=== PATIENT | female | born 1990 | race Caucasian/White ===

== ENCOUNTER 2018-01-30 09:55 | Emergency (ER) | payer OTHER ==
[2018-01-30 13:05] LABS: Absolute Lymphocytes (CBC) 2.2 K/uL (0.7-4.9); Absolute Monocytes 0.6 K/uL (0.1-1.3); Absolute Neutrophil 3.6 K/uL (1.8-8.0); Basophils % 0.4 % (0-1.3); Eosinophils % 0.6 % (0-4.4); Hematocrit 41.6 % (36.0-45.0); Lymphocytes % 33.6 % (15.3-44.8); MCH 31.7 pg (27.0-35.0); MCV 93.3 fL (80-100); MPV 8.3 fL (7.6-11.3); RBC Red Blood Cell Count 4.46 M/uL (3.86-4.86)
[2018-01-30 13:50] LABS: Bicarbonate 27 mEq/L (21-31); Glucose Level 89 mg/dL (65-120); Potassium 3.8 mEq/L (3.6-5.0); Sodium Level 139 mEq/L (135-145)
[2018-01-30 13:51] LABS: BUN Blood Urea Nitrogen 11 mg/dL (6-20)
[2018-01-30 13:56] LABS: HCG, Quantitative < 5.0 mIU/mL (<5)
--- NOTE | 2018-01-30 14:15 | RAD REPORT ---
EXAM DESCRIPTION: US - Transvaginal Study Probe - 01/30/2018 2:01 pm CLINICAL HISTORY: Pelvic pain. COMPARISON: 07/02/2012 FINDINGS: The uterus is normal in size, shape and echotexture. The uterus measures 8.2 x 6.5 x 5.6 c m. The endometrial stripe measures 10 mm, normal. Both ovaries are normal in size, shape and echotexture. The right ovary measures 3.6 x 2.9 x 2.3 cm. The left ovary measures 4.0 x 2.5 x 1.9 cm. No ovarian or parovarian lesions. No adnexal masses. Normal Doppler blood flow was demonstrated to both ovaries. IMPRESSION: Unremarkable study.
[2018-01-30 14:25] LABS: Urine Blood NEGATIVE (NEG); Urine Glucose NEGATIVE (NEG); Urine Protein NEGATIVE (NEG); Urine pH 5.5 (5.0-7.0)
--- NOTE | 2018-01-30 14:32 | ER ---
Nurse's Notes [facility] Name: Josee Anthony Age: 27 yrs Sex: Female : 1990 Arrival Date: 01/30/2018 Time: 10:01 Bed 5 Private MD: None, None Diagnosis: Abdominal and pelvic pain;Low back pain Presentation: 01/30 10:26 Presenting complaint: Patient states: Low back pain that radiates to left abdomen, aj started 12 days ago. Reports discomfort when urinating. Transition of care: patient was not received from another setting of care. Onset of symptoms was January 18, 2018. Initial Sepsis Screen: Does the patient meet any 2 criteria? No. Patient's initial sepsis screen is negative. Does the patient have a suspected source of infection? No. Patient's initial sepsis screen is negative. Care prior to arrival: None. 10:26 Method Of Arrival: Ambulatory aj 10:26 Acuity: ROBERT 3 aj Triage Assessment: 10:28 General: Appears in no apparent distress. comfortable, Behavior is calm, cooperative, aj appropriate for age. Pain: Complains of pain in left low back, posterior aspect of left lateral abdomen, anterior aspect of left lateral abdomen, left upper quadrant and left lower quadrant Pain currently is 5 out of 10 on a pain scale. Neuro: Level of Consciousness is awake, alert, obeys commands, Oriented to person, place, time, situation. Respiratory: Airway is patent Respiratory effort is even, unlabored. : Reports burning with urination. Derm: Skin is intact, is healthy with good turgor, Skin is pink, warm \T\ dry. normal. Musculoskeletal: Circulation, motion, and sensation intact. 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 - Social history:: Smoking status: Patient uses tobacco products, denies chronic smoking, but will smoke occasionally. Screenin:26 Abuse screen: Denies threats or abuse. Nutritional screening: No deficits noted. tw2 Tuberculosis screening: No symptoms or risk factors identified. Fall Risk None identified. Assessment: 12:24 General: Appears in no apparent distress. slender, well groomed, Behavior is calm, tw2 cooperative, appropriate for age. Pain: Complains of pain in abdomen and back. Neuro: Level of Consciousness is awake, alert, obeys commands, Oriented to person, place, time, situation. Cardiovascular: Denies chest pain, shortness of breath, Heart tones S1 S2 Capillary refill < 3 seconds Patient's skin is warm and dry. Respiratory: Airway is patent Respiratory effort is even, unlabored, Respiratory pattern is regular, symmetrical, Breath sounds are clear bilaterally. GI: Abdomen is flat, Bowel sounds present X 4 quads. Reports lower abdominal pain, upper abdominal pain, Patient currently denies bloating, nausea, vomiting. : No signs and/or symptoms were reported regarding the genitourinary system. EENT: No signs and/or symptoms were reported regarding the EENT system. Derm: No signs and/or symptoms reported regarding the dermatologic system. Skin is intact, is healthy with good turgor, Skin temperature is warm. Musculoskeletal: Range of motion: intact in all extremities. 13:30 Reassessment: Patient appears in no apparent distress at this time. No changes from tw2 previously documented assessment. Patient and/or family updated on plan of care and expected duration. Pain level reassessed. Patient is alert, oriented x 3, equal unlabored respirations, skin warm/dry/pink. 14:52 Reassessment: Patient appears in no apparent distress at this time. No changes from tw2 previously documented assessment. Patient and/or family updated on plan of care and expected duration. Pain level reassessed. Patient is alert, oriented x 3, equal unlabored respirations, skin warm/dry/pink. Vital Signs: 10:28 BP 116 / 84; Pulse 88; Resp 17; Temp 98.6; Pulse Ox 100% on R/A; Weight 52.16 kg; aj Height 5 ft. 1 in. (154.94 cm); Pain 5/10; 12:27 BP 119 / 71; Pulse 78; Resp 18; Pulse Ox 100% on R/A; Pain 4/10; tw2 13:40 BP 127 / 74; Pulse 84; Resp 17; Pulse Ox 99% on R/A; tw2 14:51 BP 113 / 78; Pulse 90; Resp 17; Pulse Ox 96% on R/A; tw2 15:34 BP 113 / 70; Pulse 82; Resp 17; Pulse Ox 100% on R/A; tw2 10:28 Body Mass Index 21.73 (52.16 kg, 154.94 cm) aj ED Course: 10:01 Patient arrived in ED. mr 10:01 None, None is Private Physician. mr 10:27 Triage completed. aj 10:28 Arm band placed on left wrist. Patient placed in waiting room, Patient notified of wait aj time. 12:18 Naveen Fuentes PA is PHCP. cp 12:18 Naveen Lam MD is Attending Physician. cp 12:20 Violet Carr, CAMILA is Primary Nurse. tw2 12:26 Bed in low position. Call light in reach. Pulse ox on. NIBP on. tw2 13:00 Inserted saline lock: 20 gauge in left antecubital area, using aseptic technique. tw2 ,using aseptic technique. per Elizabeth Liu Blood collected. 13:39 Assist provider with pelvic exam: Set up pelvic tray. Performed by Naveen DALE tw2 Specimens sent to lab. Patient tolerated well. 13:44 Patient taken to ultrasound. hr 14:01 US Transvaginal Study (Probe) In Process Unspecified. EDMS 15:07 Awaitin minutes ABX observation prior to discharge. tw2 15:38 IV discontinued, intact, bleeding controlled, No redness/swelling at site. Pressure tw2 dressing applied. Administered Medications: 15:04 Drug: Rocephin (cefTRIAXone) 250 mg Route: IM; Site: right gluteus; tw2 15:33 Follow up: Response: No adverse reaction tw2 15:06 Drug: Zithromax 1 grams Route: PO; tw2 15:33 Follow up: Response: No adverse reaction tw2 Outcome: 14:31 Discharge ordered by . cp 15:38 Discharged to home ambulatory. tw2 15:38 Condition: stable 15:38 Discharge instructions given to patient, Instructed on discharge instructions, follow up and referral plans. medication usage, Demonstrated understanding of instructions, follow-up care, medications, Prescriptions given X 2. 15:39 Patient left the ED. tw2 Signatures: Dispatcher [employer] EDMS Janice Randolph RN RN aj Rivera, Maria Franck Vidaley hr Naveen Fuentes PA PA cp Wise, Tara, RN RN tw2 Corrections: (The following items were deleted from the chart) 13:39 12:26 No provider procedures requiring assistance completed. tw2 tw2
--- NOTE | 2018-01-30 14:33 | EDPHYS ---
Physician Documentation [facility] Name: Josee Anthony Age: 27 yrs Sex: Female : 1990 Arrival Date: 01/30/2018 Time: 10:01 Bed 5 Private MD: None, None ED Physician Naveen Lam HPI: 01/30 12:25 This 27 yrs old Female presents to ER via Ambulatory with complaints of Back cp Pain, Abdominal Pain. 12:25 The patient presents with abdominal pain in the lower abdomen. cp 12:25 Onset: The symptoms/episode began/occurred 2 week(s) ago. The symptoms radiate to low cp back area. Associated signs and symptoms: Pertinent positives: dysuria, vaginal discharge, pelvic pain, Pertinent negatives: nausea and vomiting, anorexia, blood in stools, constipation, diarrhea, fever. 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 - Social history:: Smoking status: Patient uses tobacco products, denies chronic smoking, but will smoke occasionally. ROS: 12:30 Constitutional: Negative for body aches, chills, fever, poor PO intake. cp 12:30 Eyes: Negative for injury, pain, redness, and discharge. cp 12:30 ENT: Negative for drainage from ear(s), ear pain, sore throat, difficulty swallowing, difficulty handling secretions. 12:30 Cardiovascular: Negative for chest pain, palpitations. 12:30 Respiratory: Negative for cough, shortness of breath, wheezing. 12:30 Abdomen/GI: Positive for abdominal pain, of the right lower quadrant and left lower quadrant, Negative for nausea, vomiting, and diarrhea, constipation, anorexia. 12:30 Back: Positive for radiated pain, of the low back area. 12:30 : Positive for pelvic pain, vaginal discharge, Negative for urinary symptoms, vaginal bleeding. 12:30 Skin: Negative for cellulitis, rash. 12:30 Neuro: Negative for dizziness, headache, weakness. 12:30 All other systems are negative. Exam: 12:37 Constitutional: The patient appears in no acute distress, alert, awake, comfortable, cp non-toxic, well developed, well nourished. 12:37 Head/Face: Normocephalic, atraumatic. cp 12:37 Eyes: Periorbital structures: appear normal, Conjunctiva: normal, no exudate, no injection, Sclera: no appreciated abnormality, Lids and lashes: appear normal, bilaterally. 12:37 ENT: External ear(s): are unremarkable, Nose: is normal, Mouth: Lips: moist, Oral mucosa: pink and intact, moist, Posterior pharynx: is normal, airway is patent, no erythema, no exudate. 12:37 Neck: ROM/movement: is normal, is supple, without pain, no range of motions limitations, no meningismus, no nuchal rigidity. 12:37 Chest/axilla: Inspection: normal, Palpation: is normal, no crepitus, no tenderness. 12:37 Cardiovascular: Rate: normal, Rhythm: regular. 12:37 Respiratory: the patient does not display signs of respiratory distress, Respirations: normal, no use of accessory muscles, no retractions, no splinting, no tachypnea, labored breathing, is not present, Breath sounds: are clear throughout, no decreased breath sounds, no stridor, no wheezing. 12:37 Abdomen/GI: Inspection: abdomen appears normal, Bowel sounds: active, all quadrants, Palpation: soft, in all quadrants, mild abdominal tenderness, in the right lower quadrant and left lower quadrant, rebound tenderness, is not appreciated, voluntary guarding, is not appreciated, involuntary guarding, is not appreciated. 12:37 Back: pain, that is mild, of the low back area, CVA tenderness, is absent. 12:37 Skin: cellulitis, is not appreciated, no rash present. Vital Signs: 10:28 BP 116 / 84; Pulse 88; Resp 17; Temp 98.6; Pulse Ox 100% on R/A; Weight 52.16 kg; aj Height 5 ft. 1 in. (154.94 cm); Pain 5/10; 12:27 BP 119 / 71; Pulse 78; Resp 18; Pulse Ox 100% on R/A; Pain 4/10; tw2 13:40 BP 127 / 74; Pulse 84; Resp 17; Pulse Ox 99% on R/A; tw2 14:51 BP 113 / 78; Pulse 90; Resp 17; Pulse Ox 96% on R/A; tw2 15:34 BP 113 / 70; Pulse 82; Resp 17; Pulse Ox 100% on R/A; tw2 10:28 Body Mass Index 21.73 (52.16 kg, 154.94 cm) aj MDM: 12:18 Patient medically screened. cp 13:00 Differential diagnosis: Ectopic , Endometriosis, gastritis, Ovarian Torsion, cp Pelvic Inflammatory Disease, Ureterolithiasis, urinary tract infection. 14:29 Data reviewed: vital signs, nurses notes, lab test result(s), radiologic studies, cp ultrasound, and as a result, I will discharge patient. 14:35 Counseling: I had a detailed discussion with the patient and/or guardian regarding: the cp historical points, exam findings, and any diagnostic results supporting the discharge/admit diagnosis, lab results, radiology results, the need for outpatient follow up, an OB/Gyne specialist, to return to the emergency department if symptoms worsen or persist or if there are any questions or concerns that arise at home. Response to treatment: the patient's symptoms have markedly improved after treatment, and as a result, I will discharge patient. 01/30 12:21 Order name: Urine Dipstick--Ancillary (enter results); Complete Time: 14:26 mw2 01/30 14:26 Interpretation: Normal except: UESTR TRACE. 01/30 12:21 Order name: Urine --Ancillary (enter results); Complete Time: 14:26 2 01/30 12:31 Order name: Quantitative Hcg; Complete Time: 14:26 01/30 12:31 Order name: Basic Metabolic Panel; Complete Time: 14:26 01/30 12:31 Order name: CBC with Diff; Complete Time: 13:40 01/30 12:31 Order name: GC (GONORR/CHLAMYDIA) Probe 01/30 12:31 Order name: IV Saline Lock; Complete Time: 12:57 01/30 12:31 Order name: Labs collected and sent; Complete Time: 12:57 01/30 12:31 Order name: NPO; Complete Time: 12:34 01/30 12:31 Order name: Pelvic Exam Setup; Complete Time: 12:36 01/30 12:31 Order name: Wet Prep; Complete Time: 14:26 01/30 13:40 Order name: US Transvaginal Study (Probe); Complete Time: 14:26 cp Administered Medications: 15:04 Drug: Rocephin (cefTRIAXone) 250 mg Route: IM; Site: right gluteus; tw2 15:33 Follow up: Response: No adverse reaction tw2 15:06 Drug: Zithromax 1 grams Route: PO; tw2 15:33 Follow up: Response: No adverse reaction tw2 Disposition: 19:11 Co-signature as Attending Physician, Naveen Lam MD I agree with the assessment and [facility] plan of care. Disposition: 01/30/18 14:31 Discharged to Home. Impression: Abdominal and pelvic pain, Low back pain. - Condition is Stable. - Discharge Instructions: Back Pain, Adult, Pelvic Pain, Female, Abdominal Pain, Women, Back Exercises, [id number]. - Prescriptions for Ibuprofen 800 mg Oral Tablet - take 1 tablet by ORAL route every 8 hours As needed take with food; 30 tablet. Doxycycline Hyclate 100 mg Oral Tablet - take 1 tablet by ORAL route every 12 hours; 20 tablet. - Medication Reconciliation Form, Thank You Letter, Antibiotic Education, Prescription Opioid Use, Work release form form. - Follow up: Private Physician; When: primary FINGERNAIL FORMER; Reason: Recheck today's complaints, 1 week. - Problem is new. - Symptoms are unchanged. Signatures: Dispatcher [employer] Janice Lema, RN Naveen Florian MD MD cha Page, Corey, PA PA cp Wise, Tara RN RN tw2
[2018-01-30] MEDS ORDERED: AZITHROMYCIN 250 MG TAB ONE (14:56)
[2018-01-30] MEDS ORDERED: CEFTRIAXONE 250 MG/VIAL ONE (14:57)
[2018-01-30 15:45] VITALS: TEMP 98.6
[2018-01-30 15:50] VITALS: BP 113/70; O2SAT 100
[2018-02-01 23:46] LABS: C.trachomatis RNA,TMA Not Detected (Not Detected)
== END 2018-01-30 15:39 | disposition home or self-care (01) ==
LOC: ER 09:55
DX: R10.2 Pelvic and perineal pain (principal); Z72.0 Tobacco use
CPT/HCPCS: 36415; 76830; 80048; 81003; 81025; 84702; 85025; 87210; 87490; 87590; 96372; 99285; J0696

== ENCOUNTER 2019-04-17 10:51 | Emergency (ER) | payer OTHER ==
--- OUTSIDE RECORDS SUMMARY | 2019-04-17 10:54 | XMS REPORT | Encounter Summary ---
:1990 Author Reason for Visit Problem Visit Instructions 1. Depressive disorder citalopram 10 mg tablet Discussion Note At least 15 min. of face to face time with the patient, >50% spent on counseling. Patient educational handouts: No information available. Plan of Care Reminders Provider Appointments Consult Erickson Whitman, 12/02/2018 10:45AM Follow up Erickson Whitman, 12/11/2018 9:45AM Lab None recorded. Referral None recorded. Procedures None recorded. Surgeries None recorded. Imaging None recorded. Medications Name Start Date citalopram 10 mg tablet Take 1 tablet every day by oral route. Medications Administered None recorded. Vitals Height Weight BMI Blood Pressure 5 ft 2 in 118 lbs 21.6 kg/m2 118/74 mm[Hg] Lab Results None recorded. Allergies Code Code System Name Reaction Severity Status Onset NKDA Problems Name Status Onset Date Source Dysmenorrhea Active 12/06/2017 Menorrhagia Active 12/06/2017 Sterilization Requested Active 12/06/2017 Procedures Date Name Performed by 11/27/2013 Caesarean Section Information not available 04/11/2009 Caesarean Section Information not available 01/30/2008 Caesarean Section Information not available Vaccine List None recorded. Social History Smoking Status Never Smoker Past Encounters 11/27/2018 Depressive Disorder Erickson Whitman MD: [address], [address], [place] [address], Ph. [phone] History of Present Illness Note: Problem visit. Complains of severe depression, including feelings of hurting self and others. She had an early termination 03/2017 and was late for menses this month (November), had positive test, then started having heavy bleeding a few days ago. She went to an ER in [place] last night for her mood symptoms. She was not prescribed medication and was told to f/u here. 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 Reported By: Patient Constitutional: Constitutional: no fever, no significant weight gain, no significant weight loss, fatigue Skin: Skin: no abnormal moles, no rashes Eyes: Eyes: no irritation, no vision changes ENMT: ENMT: no hearing loss, no ear pain, no nose/sinus problems, no sore throat, no snoring, no dry mouth, no mouth ulcers Respiratory: Respiratory: no dyspnea / shortness of breath, no cough, no sputum production, no hemoptysis, no wheezing Cardiovascular: Cardiovascular: no chest pain, no palpitations, no orthopnea Gastrointestinal: Gastrointestinal: no heartburn, no dysphagia, no nausea, no vomiting, no abdominal pain, no bowel movement changes, no diarrhea, no constipation, no rectal bleeding Genitourinary: Genitourinary: no hematuria, no abnormal bleeding, no flank pain, no trouble urinating, no incontinence, no rash, no lesion, no discharge, no vaginal odor, no vaginal itching Endocrine: Menstrual: no menstrual problems, depressed mood. Menopausal: no menopausal symptoms. Sexual: no sexual problems Musculoskeletal: Musculoskeletal: no muscle aches, no muscle weakness, no arthralgias/joint pain, no back pain Neurological: Neurologic: no headaches, no dizziness, no LOC, no weakness, no numbness, no seizures Psychological: Psych: no alcoholism, no sleep disturbances, depression Physical Exam Notes: Mental status Exam:<div>Appearance appropriate, good hygiene.</div><div >Calm attitude.</div><div>Normal behavior w/out psychomotor changes.</div><div>Speech normal.</div><div>Affect/mood mildly depression, occ. tearful.</div><div>Thought processes normal, logical.</div><div>Suicidal/homicidal ideation passively present.</div><div> No hallucinations.</div><div>Oriented to time, place, person.</div><div>Good insight and judgement.</div>
--- OUTSIDE RECORDS SUMMARY | 2019-04-17 10:54 | XMS REPORT | Encounter Summary ---
:1990 Author Reason for Visit consult Instructions 1. Depressive disorder 2. Sterilization requested 3. Unprotected sexual intercourse urinalysis, dipstick test, urine beta-HCG, quantitative, serum or plasma Discussion Note Risks, benefits, and alternatives of laparoscopic bilateral tubal ligation discussed. Permanent nature of procedure, risk of future regret, and possible failure rate of 0.5-1 % reviewed. Written info given. Consent signed today. Plan BTL in one month. At least 15 min. of face to face time with the patient, >50% spent on counseling. Patient educational handouts: No information available. Plan of Care Reminders Provider Appointments None recorded. Lab Urinalysis, In-House Results Dipstick 03/10/2019 In-House Results Test, Urine 03/10/2019 beta-HCG, [place] Quantitative, Serum or 03/10/2019 [facility] (Lab) Referral None recorded. Procedures None recorded. Surgeries None recorded. Imaging None recorded. Medications Name Start Date citalopram 10 mg tablet Take 1 tablet every day by oral route. citalopram 20 mg tablet Take 1 tablet every day by oral route. Medications Administered None recorded. Vitals Height Weight BMI Blood Pressure 5 ft 2 in 120.8 lbs 22.1 kg/m2 116/82 mm[Hg] Lab Results Date Name Specimen Result Interpretation Description Value Range Status Address 03/10/2019 beta-HCG, Normal HCG 0.1 0-5 Final [place] Quantitative, Quantitative mIU/mL mIU/mL [facility] Serum or [facility] (Lab): [address] [facility] 03/10/2019 Urine negative In-House Test, Urine clean Test Results: catch For Internal Use Only 03/10/2019 Urinalysis, Urine Leukocytes Trace In-House Dipstick clean Results: catch For Internal Use Only Urine Nitrite negative In-House clean Results: catch For Internal Use Only Urine Urobilinogen .2 In-House clean Results: catch For Internal Use Only Urine Protein Negative In-House clean Results: catch For Internal Use Only Urine Ph 6.5 In-House clean Results: catch For Internal Use Only Urine Blood Negative In-House clean Results: catch For Internal Use Only Urine Specific 1.030 In-House clean [place] Results: catch For Internal Use Only Urine Ketone Negative In-House clean Results: catch For Internal Use Only Urine Bilirubin Negative In-House clean Results: catch For Internal Use Only Urine Glucose Negative In-House clean Results: catch For Internal Use Only Urine Appearance Clear In-House clean Results: catch For Internal Use Only Urine Color Yellow In-House clean Results: catch For Internal Use Only Allergies Code Code System Name Reaction Severity Status Onset NKDA Problems Name Status Onset Date Source Dysmenorrhea Active 12/06/2017 Menorrhagia Active 12/06/2017 Sterilization Requested Active 12/06/2017 Depressive Disorder Active 12/15/2018 Procedures Date Name Performed by 11/27/2013 Caesarean Section Information not available 04/11/2009 Caesarean Section Information not available 01/30/2008 Caesarean Section Information not available Vaccine List None recorded. Social History Smoking Status Never Smoker Past Encounters 03/10/2019 Depressive Disorder; Sterilization Requested; Unprotected Sexual [place] Erickson Whitman MD: [address] [place] [address], [address], [place] [address], Ph. [phone] History of Present Illness Note: Follow up visit. Started citalopram 20 mg three months ago for depression. She reports good relief of symptoms. She wishes to proceed with permanent sterilization. She states that she had unprotected intercourse on two occasions shortly after her LMP and is concerned about being . 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 Behavior and speech normal.</div><div>Affect and mood are normal.</div><div>Thought processes logical and organized. No suicidal thoughts.</div><div>No hallucinations. </div><div>Insight and judgement good.</div>
--- OUTSIDE RECORDS SUMMARY | 2019-04-17 10:54 | XMS REPORT | Encounter Summary ---
:1990 Author Reason for Visit Problem Visit Instructions 1. Depressive disorder citalopram 10 mg tablet Discussion Note At least 25 min. of face to face time with the patient, >50% spent on counseling. Patient educational handouts: No information available. Plan of Care Reminders Provider Appointments Follow up 12/11/2018 Erickson Whitman, 9:45AM Lab None recorded. Referral None recorded. [...] 11/27/2018 Depressive Disorder Erickson Whitman MD: [address] [facility], [address], [place] [address], Ph. [phone] History of Present Illness Note: Problem visit. Complains of severe depression, including feelings of hurting self and others. She had an early termination 03/2017 and was late for menses this month (November), had positive test, then started having heavy bleeding a few days ago. She went to an ER in [place] last night for her mood symptoms. She was not prescribed medication and was told to f/u here. 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
--- OUTSIDE RECORDS SUMMARY | 2019-04-17 10:55 | XMS REPORT | Encounter Summary ---
:1990 Author Reason for Visit Pre- OP Instructions 1. Pre-surgery evaluation test, urine urinalysis, dipstick Tylenol-Codeine #3 300 mg-30 mg tablet ibuprofen 800 mg tablet Valium 10 mg tablet 2. Sterilization requested Discussion Note Risks, benefits, and alternatives of laparoscopic bilateral tubal ligation discussed. Permanent nature of procedure, risk of future regret, and possible failure rate of 0.5-1 % reviewed. Written info given. Procedure scheduled for 04/15/19. Patient educational handouts: No information available. Plan of Care Reminders Provider Appointments Surgery Erickson Whitman, 04/15/2019 9:30AM Post Op Visit Erickson Whitman, 04/27/2019 10:00AM Lab In-House Results Test, Urine 04/13/2019 Urinalysis, In-House Results Dipstick 04/13/2019 Referral None recorded. Procedures None recorded. Surgeries None recorded. Imaging None recorded. Medications Name Start Date citalopram 20 mg tablet Take 1 tablet every day by oral route. ibuprofen 800 mg tablet Take 1 tablet every 6 hours by oral route as needed. Tylenol-Codeine #3 300 mg-30 mg tablet 1-2 p.o. q 6 hrs PRN pain Valium 10 mg tablet one tab p.o. at HS before surgery Medications Administered None recorded. Vitals Height Weight BMI Blood Pressure 5 ft 2 in 120.9 lbs 22.1 kg/m2 119/82 mm[Hg] Lab Results Date Name Specimen Result Interpretation Description Value Range Status Address 04/13/2019 Urinalysis, Leukocytes Negative In-House Dipstick Results: For Internal Use Only Nitrite negative In-House Results: For Internal Use Only Urobilinogen .2 In-House Results: For Internal Use Only Protein Trace In-House Results: For Internal Use Only Ph 7.0 In-House Results: For Internal Use Only Blood Large In-House Results: For Internal Use Only Specific 1.030 In-House Odd Results: For Internal Use Only Ketone Negative In-House Results: For Internal Use Only Bilirubin Negative In-House Results: For Internal Use Only Glucose Negative In-House Results: For Internal Use Only Appearance Clear In-House Results: For Internal Use Only Color [place] In-House Results: For Internal Use Only 04/13/2019 Test, Test negative In-House Urine Results: For Internal Use Only Allergies Code Code [...] History Smoking Status Never Smoker Past Encounters 04/13/2019 Pre-surgery Evaluation; Sterilization Requested Erickson Whitman MD: [address] [place] [address], [address], [place] [address], Ph. [phone] History of Present Illness Note: Pre-op visit. 29 year-old Ab2 desires permanent sterilization. 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 Menopausal: no menopausal symptoms. 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 Mood and Affect: active and alert, normal mood, normal affect Skin: Appearance: no rashes, no lesions Neck: Neck: supple, trachea midline, no masses, FROM. Thyroid: no enlargement, no nodules, non-tender Lungs: Respiratory Effort: no intercostal retractions, no accessory muscle usage. Auscultation: clear to auscultation, no wheezing, no rales/crackles, no rhonchi Cardiovascular: Auscultation: RRR, no murmur. Peripheral Vascular: no LLE edema, no RLE edema, no varicosities, no calf tenderness, no palpable cords, pedal pulses intact Abdomen: Auscultation/Inspection/Palpation: soft, non-distended, no tenderness, no hepatomegaly, no splenomegaly, no masses. Hernia: none palpated
[2019-04-17] MEDS ORDERED: ONDANSETRON 4 MG/2 ML VIAL ONE (11:57)
[2019-04-17] MEDS ORDERED: MORPHINE 4 MG/ML SYR ONE (11:57)
[2019-04-17 12:09] LABS: Absolute Lymphocytes (CBC) 1.6 K/uL (0.7-4.9); Basophils % 0.2 % (0-1.3); Eosinophils % 1.4 % (0-4.4); Hematocrit 38.6 % (36.0-45.0); Lymphocytes % 21.6 % (15.3-44.8); MPV 8.2 fL (7.6-11.3); RBC Red Blood Cell Count 3.99 M/uL (3.86-4.86)
[2019-04-17 12:14] LABS: Urine Bacteria <20 /HPF (<20); Urine Culture Reflex Order NOT NEEDED
[2019-04-17 12:23] LABS: ALT/SGPT 16 U/L (12-78); AST/SGOT 8 U/L (15-37); Alkaline Phosphatase 49 U/L (45-117); BUN Blood Urea Nitrogen 7 mg/dL (7-18); Bicarbonate 29 mmol/L (21-32); Bilirubin Direct < 0.1 mg/dL (0-0.2); Bilirubin Total 0.4 mg/dL (0.2-1.0); Glucose Level 86 mg/dL (74-106); Lipase 52 U/L (73-393); Potassium 3.5 mmol/L (3.5-5.1); Protein, Total 7.3 g/dL (6.4-8.2); Sodium Level 143 mmol/L (136-145)
--- NOTE | 2019-04-17 12:44 | RAD REPORT ---
EXAM DESCRIPTION: Gabriel Gomez (2 Views)04/17/2019 12:35 pm CLINICAL HISTORY: Cough COMPARISON: None FINDINGS: The lungs appear clear of acute infiltrate. The heart is normal size Free air is suspected IMPRESSION: Pneumoperitoneum. This can be a normal finding given that the patient has had recent bess deangelo. Perforated viscus can also result in this appearance. At the time of this dictation a CT scan of the abdomen was pending
[2019-04-17 13:14] LABS: Urine Blood 3+ (NEG); Urine Glucose NEGATIVE (NEG); Urine Protein NEGATIVE (NEG)
--- NOTE | 2019-04-17 13:40 | RAD REPORT ---
EXAM DESCRIPTION: CT - Abdomen Pelvis W Contrast - 04/17/2019 1:25 pm CLINICAL HISTORY: Abdominal pain. COMPARISON: 2011 TECHNIQUE: Computed axial tomography of the abdomen and pelvis was obtained. 100 cc Isovue-300 is ad ministered intravenously. Oral contrast was given. All CT scans are performed using dose optimization technique as appropriate and may include automated exposure control or mA/KV adjustment according to patient size. FINDINGS: The liver, spleen, pancreas, adrenals and kidneys appear unremarkable. There is no evidence of diverticulitis Patient is status post tubal ligation 2 days ago. 4 x 3 centimeter area of increased density within t he right paracolic gutter adjacent to the cecum as well as a 6 x 2 centimeter area of increased densi ty within the cul-de-sac likely represent blood. Small amount of pneumoperitoneum IMPRESSION: Small to moderate amount of hemoperitoneum within the pelvis Small amount of pneumoperitoneum likely secondary to the recent surgery
--- NOTE | 2019-04-17 14:07 | ER ---
Nurse's Notes [facility] Name: Josee Anthony Age: 29 yrs Sex: Female : 1990 Arrival Date: 04/17/2019 Time: 11:02 Bed 19 Private MD: None, None Diagnosis: Unspecified abdominal pain-post procedural pain Presentation: 04/17 11:22 Presenting complaint: Patient states: had tubal 2 days ago in [place], reports lower em abdominal pain that has been getting worse, denies fever, reports nausea and vomited once on the way here, also reports right shoulder pain, denies trauma. Transition of care: patient was not received from another setting of care. Onset of symptoms was April 15, 2019. Risk Assessment: Do you want to hurt yourself or someone else? Patient reports no desire to harm self or others. Initial Sepsis Screen: Does the patient meet any 2 criteria? No. Patient's initial sepsis screen is negative. Does the patient have a suspected source of infection? Yes: Skin breakdown/wound. Care prior to arrival: None. 11:22 Method Of Arrival: Ambulatory em 11:27 Acuity: ROBERT 3 iw Historical: - Allergies: 11:25 No Known Allergies; em - Home Meds: 11:25 Tylenol #3 Oral [Active]; em - PMHx: 11:25 None; em - PSHx: 11:25 Tubal ligation; em - Immunization history:: Adult Immunizations up to date. - Social history:: Smoking status: Patient uses tobacco products, denies chronic smoking, but will smoke occasionally. - Ebola Screening: : Patient negative for fever greater than or equal to 101.5 degrees Fahrenheit, and additional compatible Ebola Virus Disease symptoms Patient denies exposure to infectious person Patient denies travel to an Ebola-affected area in the 21 days before illness onset No symptoms or risks identified at this time. Screenin:26 Abuse screen: Denies threats or abuse. Nutritional screening: No deficits noted. em Tuberculosis screening: No symptoms or risk factors identified. Fall Risk None identified. Assessment: 11:25 General: Appears in no apparent distress. uncomfortable, Behavior is calm, cooperative, em Denies fever. Pain: Complains of pain in suprapubic area and anterior aspect of right shoulder Pain currently is 8 out of 10 on a pain scale. Neuro: Level of Consciousness is awake, alert, obeys commands, Oriented to person, place, time, situation. Cardiovascular: Capillary refill < 3 seconds Patient's skin is warm and dry. Respiratory: Airway is patent Respiratory effort is even, unlabored, Respiratory pattern is regular, symmetrical. GI: Abdomen is flat, Bowel sounds present X 4 quads. Abd is soft X 4 quads Abdomen is tender to palpation in suprapubic area, right lower quadrant and left lower quadrant Reports nausea, vomiting, Patient currently denies diarrhea. : Denies burning with urination, vaginal bleeding. Derm: Skin is intact, is healthy with good turgor, Skin is pink, warm \T\ dry. Musculoskeletal: Capillary refill < 3 seconds, Range of motion: intact in all extremities. 12:30 Reassessment: Patient appears in no apparent distress at this time. Patient and/or em family updated on plan of care and expected duration. Pain level reassessed. Patient is alert, oriented x 3, equal unlabored respirations, skin warm/dry/pink. 13:42 Reassessment: Patient appears in no apparent distress at this time. Patient and/or em family updated on plan of care and expected duration. Pain level reassessed. Patient is alert, oriented x 3, equal unlabored respirations, skin warm/dry/pink. Vital Signs: 11:25 BP 117 / 81; Pulse 88; Resp 18; Temp 98.5(O); Pulse Ox 99% on R/A; Weight 54.43 kg; em Height 5 ft. 2 in. (157.48 cm); Pain 8/10; 12:08 BP 121 / 78; Pulse 81; Resp 18; Pulse Ox 99% on R/A; em 13:46 BP 109 / 85; Pulse 75; Resp 18; Pulse Ox 99% on R/A; Pain 4/10; em 11:25 Body Mass Index 21.95 (54.43 kg, 157.48 cm) em ED Course: 11:02 Patient arrived in ED. mr 11:02 None, None is Private Physician. mr 11:14 Scott Guardado LVN is Primary Nurse. em 11:15 Javier Smith NP is PHCP. pm1 11:15 Naveen Lam MD is Attending Physician. pm1 11:25 Arm band placed on. em 11:26 Patient has correct armband on for positive identification. Placed in gown. Bed in low em position. Pulse ox on. NIBP on. 11:27 Triage completed. iw 11:50 Initial lab(s) drawn, by me, sent to lab. Inserted saline lock: 22 gauge in right em antecubital area, using aseptic technique. Blood collected. 13:25 CT Abd/Pelvis - PO and IV Contrast In Process Unspecified. EDMS 14:19 No provider procedures requiring assistance completed. IV discontinued, intact, em bleeding controlled, No redness/swelling at site. Pressure dressing applied. Administered Medications: 11:56 Drug: Zofran 4 mg Route: IVP; Site: right antecubital; iw 14:24 Follow up: Response: No adverse reaction; Nausea is decreased em 11:58 Drug: morphine 4 mg Route: IVP; Site: right antecubital; iw 14:23 Follow up: Response: No adverse reaction; Pain is decreased em 11:58 Not Given (Other Intervention Used): Zofran 4 mg IM once iw Outcome: 14:06 Discharge ordered by . pm1 14:19 Discharged to home ambulatory, with family. em 14:19 Condition: good 14:19 Discharge instructions given to patient, family, Instructed on discharge instructions, follow up and referral plans. medication usage, Demonstrated understanding of instructions, follow-up care, medications, Prescriptions given X 2. 14:23 Patient left the ED. em Signatures: Dispatcher [employer] EDSherin Monroy Geo, Scott, PRIMARY CARE COORDINATOR PRIMARY CARE COORDINATOR em Adalgisa Medeiros, CAMILA RN iw Javier Smith, WILFREDO MILL TURNER pm1
--- NOTE | 2019-04-17 14:08 | EDPHYS ---
Physician Documentation [facility] Name: Josee Anthony Age: 29 yrs Sex: Female : 1990 Arrival Date: 04/17/2019 Time: 11:02 Bed 19 Private MD: None, None ED Physician Naveen Lam HPI: 04/17 11:58 This 29 yrs old Female presents to ER via Ambulatory with complaints of pm1 Abdominal pain. 11:58 The patient presents with abdominal pain that is diffuse. Onset: The symptoms/episode pm1 began/occurred 2 day(s) ago. The symptoms do not radiate. Associated signs and symptoms: none. Pertinent positives: Cough, Pertinent negatives: nausea, vomiting, and diarrhea, dysuria, fever. The symptoms are described as Bloated. Modifying factors: The symptoms are alleviated by nothing, the symptoms are aggravated by nothing. Severity of pain: in the emergency department the pain is actually worse. The patient has not experienced similar symptoms in the past. The patient has been recently seen by a physician: Patient with bilateral tubal ligation two days ago at [place]. No fever. Reports sensation of bloating. Historical: - Allergies: 11:25 No Known Allergies; em - Home Meds: 11:25 Tylenol #3 Oral [Active]; em - PMHx: 11:25 None; em - PSHx: 11:25 Tubal ligation; em - Immunization history:: Adult Immunizations up to date. - Social history:: Smoking status: Patient uses tobacco products, denies chronic smoking, but will smoke occasionally. - Ebola Screening: : Patient negative for fever greater than or equal to 101.5 degrees Fahrenheit, and additional compatible Ebola Virus Disease symptoms Patient denies exposure to infectious person Patient denies travel to an Ebola-affected area in the 21 days before illness onset No symptoms or risks identified at this time. ROS: 11:58 Constitutional: Negative for fever, chills, and weight loss, Eyes: Negative for injury, pm1 pain, redness, and discharge, ENT: Negative for injury, pain, and discharge, Neck: Negative for injury, pain, and swelling, Cardiovascular: Negative for chest pain, palpitations, and edema, Respiratory: Negative for shortness of breath, cough, wheezing, and pleuritic chest pain, Back: Negative for injury and pain, MS/Extremity: Negative for injury and deformity. 11:58 : Negative for injury, bleeding, discharge, and swelling, Patient currently on menses 11:58 Skin: Negative for injury, rash, and discoloration, Neuro: Negative for headache, weakness, numbness, tingling, and seizure. 11:58 Abdomen/GI: Positive for abdominal pain, of the abdomen diffusely, Negative for nausea, vomiting, and diarrhea. Exam: 11:58 Constitutional: This is a well developed, well nourished patient who is awake, alert, pm1 and in no acute distress. Head/Face: Normocephalic, atraumatic. Eyes: Pupils equal round and reactive to light, extra-ocular motions intact. Lids and lashes normal. Conjunctiva and sclera are non-icteric and not injected. Cornea within normal limits. Periorbital areas with no swelling, redness, or edema. ENT: Nares patent. No nasal discharge, no septal abnormalities noted. Tympanic membranes are normal and external auditory canals are clear. Oropharynx with no redness, swelling, or masses, exudates, or evidence of obstruction, uvula midline. Mucous membranes moist. Neck: Trachea midline, no thyromegaly or masses palpated, and no cervical lymphadenopathy. Supple, full range of motion without nuchal rigidity, or vertebral point tenderness. No Meningismus. Chest/axilla: Normal chest wall appearance and motion. Nontender with no deformity. No lesions are appreciated. Cardiovascular: Regular rate and rhythm with a normal S1 and S2. No gallops, murmurs, or rubs. Normal PMI, no JVD. No pulse deficits. Respiratory: Lungs have equal breath sounds bilaterally, clear to auscultation and percussion. No rales, rhonchi or wheezes noted. No increased work of breathing, no retractions or nasal flaring. Abdomen/GI: Soft, non-tender, with normal bowel sounds. No distension or tympany. No guarding or rebound. No evidence of tenderness throughout. Back: No spinal tenderness. No costovertebral tenderness. Full range of motion. Skin: Warm, dry with normal turgor. Normal color with no rashes, no lesions, and no evidence of cellulitis. Umbilical incisional site without dehiscence, discharge, redness, warmth. No signs of infection MS/ Extremity: Pulses equal, no cyanosis. Neurovascular intact. Full, normal range of motion. 11:58 Neuro: Orientation: is normal, Motor: is normal, moves all fours, Sensation: is normal, no obvious gross deficits. Vital Signs: 11:25 BP 117 / 81; Pulse 88; Resp 18; Temp 98.5(O); Pulse Ox 99% on R/A; Weight 54.43 kg; em Height 5 ft. 2 in. (157.48 cm); Pain 8/10; 12:08 BP 121 / 78; Pulse 81; Resp 18; Pulse Ox 99% on R/A; em 13:46 BP 109 / 85; Pulse 75; Resp 18; Pulse Ox 99% on R/A; Pain 4/10; em 11:25 Body Mass Index 21.95 (54.43 kg, 157.48 cm) em MDM: 11:21 Patient medically screened. pm1 14:02 Data reviewed: vital signs. Data interpreted: Pulse oximetry: on room air is 99 %. pm1 Interpretation: normal. Counseling: I had a detailed discussion with the patient and/or guardian regarding: the historical points, exam findings, and any diagnostic results supporting the discharge/admit diagnosis, lab results, radiology results. 14:02 Counseling: I had a detailed discussion with the patient and/or guardian regarding: the pm1 need for outpatient follow up, an OB/Gyne specialist. 04/17 11:31 Order name: Basic Metabolic Panel; Complete Time: 13:42 pm1 04/17 11:31 Order name: CBC with Diff pm04/17 11:31 Order name: Creatinine for Radiology; Complete Time: 13:42 pm04/17 11:31 Order name: Hepatic Function; Complete Time: 13:42 pm04/17 11:31 Order name: Lipase; Complete Time: 13:42 pm1 04/17 11:31 Order name: Urine Microscopic Only pm1 04/17 11:31 Order name: Chest Pa And Lat (2 Views) XRAY pm04/17 11:31 Order name: CT Abd/Pelvis - PO and IV Contrast; Complete Time: 13:48 pm1 04/17 11:54 Order name: Urine Dipstick--Ancillary (enter results); Complete Time: 13:42 eb 04/17 11:54 Order name: Urine --Ancillary (enter results); Complete Time: 13:42 eb 04/17 12:17 Order name: Urine Microscopic Only [facility] 04/17 12:17 Order name: CBC with Automated Diff [facility] 04/17 12:48 Order name: RAD; Complete Time: 13:42 [facility] 04/17 11:31 Order name: IV Saline Lock; Complete Time: 11:59 pm1 04/17 11:31 Order name: Labs collected and sent; Complete Time: 11:59 pm1 04/17 11:31 Order name: Urine Dipstick-Ancillary (obtain specimen); Complete Time: 11:49 pm1 Administered Medications: 11:56 Drug: Zofran 4 mg Route: IVP; Site: right antecubital; iw 14:24 Follow up: Response: No adverse reaction; Nausea is decreased em 11:58 Drug: morphine 4 mg Route: IVP; Site: right antecubital; iw 14:23 Follow up: Response: No adverse reaction; Pain is decreased em 11:58 Not Given (Other Intervention Used): Zofran 4 mg IM once iw Disposition: 04/17/19 14:06 Discharged to Home. Impression: Unspecified abdominal pain - post procedural pain. - Condition is Stable. - Discharge Instructions: Abdominal Pain, Adult. - Prescriptions for Tramadol 50 mg Oral Tablet - take 1 tablet by ORAL route every 8 hours as needed; 20 tablet. Zofran 4 mg Oral Tablet - take 1 tablet by ORAL route every 12 hours As needed; 20 tablet. - Medication Reconciliation Form, Thank You Letter, Antibiotic Education, Prescription Opioid Use form. - Follow up: Emergency Department; When: As needed; Reason: Worsening of condition. Follow up: Private Physician; When: 2 - 3 days; Reason: Recheck today's complaints, Continuance of care, Re-evaluation by your physician. - Problem is new. - Symptoms have improved. Addendum: 04/22/2019 16:53 Co-signature as Attending Physician, Naveen Lam MD I agree with the assessment and c zazueta plan of care. Signatures: Dispatcher [employer] Naveen Santana MD MD cha Munoz, Edgar, SPACE BUYER SPACE BUYER em Adalgisa Medeiros, CAMILA RN iw Javier Smith, WILFREDO DEGREASING SOLUTION RECLAIMER pm1 Corrections: (The following items were deleted from the chart) 04/17 14:23 14:06 04/17/2019 14:06 Discharged to Home. Impression: Unspecified abdominal pain - em post procedural pain. Condition is Stable. Forms are Medication Reconciliation Form, Thank You Letter, Antibiotic Education, Prescription Opioid Use. Follow up: Emergency Department; When: As needed; Reason: Worsening of condition. Follow up: Private Physician; When: 2 - 3 days; Reason: Recheck today's complaints, Continuance of care, Re-evaluation by your physician. Problem is new. Symptoms have improved. pm1
[2019-04-17 14:44] VITALS: O2SAT 99
[2019-04-17 14:46] VITALS: BP 109/85
[2019-04-17 14:53] VITALS: TEMP 97.8
== END 2019-04-17 14:23 | disposition home or self-care (01) ==
LOC: ER 10:51
DX: G89.18 Other acute postprocedural pain (principal); Z98.51 Tubal ligation status
CPT/HCPCS: 36415; 71046; 74177; 80048; 80076; 81003; 81015; 81025; 83690; 85025; 96374; 96375; 99284; J2405; Q9967

== ENCOUNTER 2020-01-16 14:24 | Emergency (ER) | payer OTHER ==
--- OUTSIDE RECORDS SUMMARY | 2020-01-16 14:26 | XMS REPORT ---
:1990 [facility] [address] [place] [address] [address] [place] [address] Care Team Providers Name Role Phone Unavailable Unavailable Unavailable Problems This patient has no known problems. Allergies, Adverse Reactions, Alerts This patient has no known allergies or adverse reactions. Medications This patient has no known medications.
--- OUTSIDE RECORDS SUMMARY | 2020-01-16 14:27 | XMS REPORT | Encounter Summary ---
:1990 Author Reason for Visit POST OP Instructions 1. Postoperative visit urinalysis, dipstick 2. Sterilization requested Discussion Note: None recorded.Patient educational handouts: No information available. Plan of Care Reminders Provider Appointments [facility] Erickson Whitman, Exam 05/11/2019 10:00AM Lab Urinalysis, In-House Results Dipstick 04/27/2019 Referral None recorded. Procedures None recorded. Surgeries None recorded. Imaging None recorded. Medications Name Start Date citalopram 20 mg tablet Take 1 tablet every day by oral route. ibuprofen 800 mg tablet Take 1 tablet every 6 hours by oral route as needed. Medications Administered None recorded. Vitals Height Weight BMI Blood Pressure 5 ft 2 in 121.6 lbs 22.2 kg/m2 124/80 mm[Hg] Lab Results Date Name Specimen Result Interpretation Description Value Range Status Address 04/27/2019 Urinalysis, Leukocytes Negative In-House Dipstick Results: For Internal Use Only Nitrite negative In-House Results: For Internal Use Only Urobilinogen .2 In-House Results: For Internal Use Only Protein Trace In-House Results: For Internal Use Only Ph 5.5 In-House Results: For Internal Use Only Blood Negative In-House Results: For Internal Use Only Specific 1.030 In-House [place] Results: For Internal Use Only Ketone Negative In-House Results: For Internal Use Only Bilirubin Negative In-House Results: For Internal Use Only Glucose Negative In-House Results: For Internal Use Only Appearance Clear In-House Results: For Internal Use Only Color Yellow In-House Results: For Internal Use Only 04/13/2019 CBC W/ Auto Normal White Blood 6.4 K/uL 4.0- Final [place] Diff Count 11.5 [facility] ([facility] [address] [facility] Normal Red Blood 4.42 M/uL 3.80 Final [place] Count -5.2 [facility] 0 [facility] (Lab): [address] [facility] Normal Hemoglobin 13.8 g/dL 10.5 Final [place] -15. [facility] 7 Medical g/dL Center (Lab): [address] [place] [address] Normal Hematocrit 43.3 % 34.0 Final [place] -50. [facility] 0 % [facility] (Lab): [address] [place] [address] Normal Mean 98.0 fL 86-1 Final [place] Corpuscular 00 [facility] Volume fL [facility] (Lab): [address] [place] [address] Normal Mean 31.2 pg 26.2 Final [place] Corpuscular -33. Regional Hemoglobin 4 pg [facility] Center (Lab): [address] [place] [address] Normal Mean 31.9 g/dL 30-3 Final [place] Corpuscular 4 [facility] HGB Conc g/dL [facility] (Lab): [address] [place] [address] Low Red Cell 11.9 % 12.0 Final [place] Distribution -15. [facility] Width 5 % [facility] (Lab): [address] [place] [address] Normal Platelet 276 K/uL 165- Final [place] Count 450 [facility] (Lab): [address] [place] [address] Low Mean Platelet 9.1 fL 9.4- Final [place] Volume 12.6 [facility] fL [facility] (Lab): [address] [place] [address] Normal Neutrophils % 63.4 % 44.4 Corrected [place] -80. [facility] 1 % [facility] (Lab): [address] [place] [address] Normal Ig% 0.2 % 0.0- Corrected [place] 0.4 [facility] (Lab): [address] [place] [address] Normal Lymphocyte% 25.9 % 10.0 Final [place] -50. [facility] 0 % [facility] (Lab): [address] [place] [address] Normal [place] % 9.0 % 3.6- Final [place] 12.0 [facility] (Lab): [address] [place] [address] Normal Eos % 1.2 % 0.0- Final [place] 5.4 [facility] (Lab): [address] [place] [address] Normal Basophil % 0.3 % 0.1- Final [place] 1.2 [facility] (Lab): [address] [place] [address] Normal Absolute 4.06 K/uL 1.56 Final [place] Neutrophil -6.1 Regional Count 3 Medical K/uL Center (Lab): [address] [place] [address] Normal Ig# 0.0 K/uL 0.0- Corrected [place] 0.03 [facility] (Lab): [address] [place] [address] Normal Lymph # 1.7 K/uL 1.18 Corrected [place] -3.7 [place] [id number] [facility] K/uL Center (Lab): [address] [place] [address] Normal [place] # 0.58 K/uL 0.24 Final [place] -0.8 [place] [address] Medical K/uL Center (Lab): [address] [place] [address] Normal Eos # 0.08 K/uL 0.04 Final [place] -0.3 [place] [address] Medical K/uL Center (Lab): [address] [place] [address] Normal Basophil # 0.02 K/uL 0.01 Corrected [place] -0.[address] K/uL Center (Lab): [address] [place] [address] Normal Nrbc% 0 /100 WBC 0-0. Final [place] 2 Regional /100 Medical WBC Center (Lab): [address] [place] [address] Normal Nrbc# 0 K/uL 0 Final [place] K/uL [facility] (Lab): [address] [place] [address] 04/13/2019 Urinalysis, Leukocytes Negative In-House Dipstick Results: For Internal Use Only Nitrite negative In-House Results: For Internal Use Only Urobilinogen .2 In-House Results: For Internal Use Only Protein Trace In-House Results: For Internal Use Only Ph 7.0 In-House Results: For Internal Use Only Blood Large In-House Results: For Internal Use Only Specific 1.030 In-House [place] Results: For Internal Use Only Ketone Negative In-House Results: For Internal Use Only Bilirubin Negative In-House Results: For Internal Use Only Glucose Negative In-House Results: For Internal Use Only Appearance Clear In-House Results: For Internal Use Only [place] In-House Results: For Internal Use Only 04/13/2019 negative In-House Test, Urine Test Results: For Internal Use Only Allergies Code Code System Name Reaction Severity Status Onset NKDA Problems Name Status Onset Date Source Dysmenorrhea Active 12/06/2017 Menorrhagia Active 12/06/2017 Sterilization Requested Active 12/06/2017 Depressive Disorder Active 12/15/2018 Procedures Date Name Performed by 04/15/2019 Tubal Ligation (Surg) Information not available 11/27/2013 Caesarean Section Information not available 04/11/2009 Caesarean Section Information not available 01/30/2008 Caesarean Section Information not available Vaccine List None recorded. Social History Smoking Status Never Smoker Past Encounters 04/27/2019 Postoperative Visit; Sterilization Requested Erickson Whitman MD: [address] [facility], [address], [place] [address], Ph. [phone] 04/15/2019 Erickson Whitman MD: [address] [facility], [address], [place] [address], Ph. [phone] 04/13/2019 Pre-surgery Evaluation; Sterilization Requested Erickson Whitman MD: [address] [facility], [address], [place] [address], Ph. [phone] History of Present Illness Post-Op Reported By: Patient HPI: Onset/Timing: date of surgery:. Quality: procedure:. Context: reason for procedure:. Associated Symptoms: incision healing well, no fatigue, normal appetite, normal bowel function, no constipation, no nausea, no emesis, pain improving, no pain, no fever, no bleeding, no lower extremity edema/pain, no dysuria/urinary symptoms Note: BTL done 04/15/19. No complaints.Review of Systems: ROS as noted in the HPI Review of Systems None recorded. Physical Exam Post Op: Chief Special[facility] Reported By: Patient General Appearance: General Appearance: healthy-appearing, well-nourished, no acute distress, ambulating well Psychiatric: Orientation: to time, to place, to person. Mood and Affect: active and alert, normal mood, normal affect Skin: Appearance: no rashes, no lesions Abdomen: Inspection of Incision Site: well-healed, clean, dry, non tender, intact. Auscultation/Inspection/Palpation: soft, non-distended, no tenderness, no hepatomegaly, no splenomegaly, no masses. Hernia: none palpated
--- NOTE | 2020-01-16 15:13 | ER ---
Nurse's Notes [facility] Name: Josee Anthony Age: 29 yrs Sex: Female : 1990 Arrival Date: 01/16/2020 Time: 14:26 Bed 18 Private MD: Diagnosis: Fever, unspecified Presentation: 01/15 14:55 Chief complaint: Patient states: was sent home from work at [employer] 2 nights ago, had iw temp of 101 and had a headache, fever and headache have resolved, needs a note to go back to work, no longer has temp or headache ,denies sore throat, denies cough. Coronavirus screen: Patient denies fever greater than 100.4F, cough, shortness of breath, or difficulty breathing. Proceed with normal triage process. Ebola Screen: Patient negative for fever greater than or equal to 101.5 degrees Fahrenheit, and additional compatible Ebola Virus Disease symptoms Patient denies exposure to infectious person. Patient denies travel to an Ebola-affected area in the 21 days before illness onset. No symptoms or risks identified at this time. Initial Sepsis Screen: Does the patient meet any 2 criteria? No. Patient's initial sepsis screen is negative. Does the patient have a suspected source of infection? No. Patient's initial sepsis screen is negative. Risk Assessment: Do you want to hurt yourself or someone else? Patient reports no desire to harm self or others. 14:55 Method Of Arrival: Ambulatory iw 14:55 Acuity: ROBERT 4 iw Historical: - Allergies: 14:58 No Known Allergies; iw - Home Meds: 14:58 None [Active]; iw - PMHx: 14:58 None; iw - PSHx: 14:58 ; iw - Immunization history:: Adult Immunizations not up to date. - Social history:: Smoking status: Patient reports the use of cigarette tobacco products, denies chronic smoking, but will smoke occasionally. - Family history:: not pertinent. - Hospitalizations: : No recent hospitalization is reported. Screenin:34 Abuse screen: Denies threats or abuse. Nutritional screening: No deficits noted. em Tuberculosis screening: No symptoms or risk factors identified. Fall Risk None identified. Assessment: 15:37 General: Appears in no apparent distress. comfortable, Behavior is calm, cooperative, em Reports fever for 1-2 days. Pain: Denies pain. Neuro: Level of Consciousness is awake, alert, obeys commands, Oriented to person, place, time, situation, Appropriate for age. Cardiovascular: Denies chest pain, Capillary refill < 3 seconds Patient's skin is warm and dry. Respiratory: Airway is patent Respiratory effort is even, unlabored, Respiratory pattern is regular, symmetrical, Denies cough, shortness of breath. Derm: Skin is intact, is healthy with good turgor, Skin is pink, warm \T\ dry. Musculoskeletal: Capillary refill < 3 seconds, Range of motion: intact in all extremities. Vital Signs: 14:55 BP 112 / 79; Pulse 91; Resp 16; Temp 98.6(O); Pulse Ox 100% on R/A; Weight 56.7 kg; iw Height 5 ft. 2 in. (157.48 cm); Pain 0/10; 14:55 Body Mass Index 22.86 (56.70 kg, 157.48 cm) iw ED Course: 14:26 Patient arrived in ED. ag5 14:32 Nicolas Mccarthy MD is Attending Physician. rn 14:55 Scott Guardado RN is Primary Nurse. em 14:58 Triage completed. iw 14:58 Arm band placed on. iw 15:34 Patient has correct armband on for positive identification. Bed in low position. Call em light in reach. Pulse ox on. NIBP on. 15:49 No provider procedures requiring assistance completed. Patient did not have IV access em during this emergency room visit. Administered Medications: No medications were administered Outcome: 15:13 Discharge ordered by . rn 15:49 Discharged to home ambulatory. em 15:49 Condition: good 15:49 Discharge instructions given to patient, Instructed on discharge instructions, follow up and referral plans. Demonstrated understanding of instructions, follow-up care. 15:50 Patient left the ED. em Signatures: Scott Guardado RN RN em Williams, Irene, RN RN Nicolas Mccarthy MD MD rn [place], Ajare ag5
--- NOTE | 2020-01-16 15:13 | EDPHYS ---
Physician Documentation [facility] Name: Josee Anthony Age: 29 yrs Sex: Female : 1990 Arrival Date: 01/16/2020 Time: 14:26 Bed 18 Private MD: ED Physician Nicolas Mccarthy HPI: 01/15 15:07 This 29 yrs old Female presents to ER via Ambulatory with complaints of Fever.rn 15:07 The patient reports fever, that was measured at 101 degrees Fahrenheit. Onset: The rn symptoms/episode began/occurred 2 day(s) ago. Modifying factors: there are no obvious modifying factors. Severity of symptoms: At their worst the symptoms were mild in the emergency department the symptoms have resolved. The patient has not experienced similar symptoms in the past. Reports had fever 2 days ago, assoc with fatigue and congestion, fever resolved, now feels fine, states needs work note to return. Currently denies any symptoms. No travel or know COVID-19 exposure. . Historical: - Allergies: 14:58 No Known Allergies; iw - Home Meds: 14:58 None [Active]; iw - PMHx: 14:58 None; iw - PSHx: 14:58 ; iw - Immunization history:: Adult Immunizations not up to date. - Social history:: Smoking status: Patient reports the use of cigarette tobacco products, denies chronic smoking, but will smoke occasionally. - Family history:: not pertinent. - Hospitalizations: : No recent hospitalization is reported. ROS: 15:07 Constitutional: + fever 2 days ago, none currently Eyes: Negative for injury, pain, rn redness, and discharge, ENT: Negative for injury, pain, and discharge, Cardiovascular: Negative for chest pain, palpitations, and edema, Respiratory: Negative for shortness of breath, cough, wheezing, and pleuritic chest pain, Abdomen/GI: Negative for abdominal pain, nausea, vomiting, diarrhea, and constipation, MS/Extremity: Negative for injury and deformity, Skin: Negative for injury, rash, and discoloration, Neuro: Negative for weakness, numbness, tingling, and seizure. Exam: 15:07 Constitutional: This is a well developed, well nourished patient who is awake, alert, rn and in no acute distress. Ambulatory to room without assistance or distress Head/Face: Normocephalic, atraumatic. Eyes: Conjunctiva and sclera are non-icteric and not injected. Cornea within normal limits. Periorbital areas with no swelling, redness, or edema. Skin: Dry, no lesions. Neuro: Awake and alert, GCS 15. Normal gait. Vital Signs: 14:55 BP 112 / 79; Pulse 91; Resp 16; Temp 98.6(O); Pulse Ox 100% on R/A; Weight 56.7 kg; iw Height 5 ft. 2 in. (157.48 cm); Pain 0/10; 14:55 Body Mass Index 22.86 (56.70 kg, 157.48 cm) iw MDM: 14:46 Patient medically screened. rn 15:07 Differential diagnosis: viral Infection, URI. Data reviewed: vital signs, nurses notes, rn and as a result, I will discharge patient. Counseling: I had a detailed discussion with the patient and/or guardian regarding: the historical points, exam findings, and any diagnostic results supporting the discharge/admit diagnosis, the need for outpatient follow up, to return to the emergency department if symptoms worsen or persist or if there are any questions or concerns that arise at home. ED course: Will dc home, no indication for testing, not sure where fever came from, is asymptomatic now with normal vitals and afebrile. Will dc home with return to work if continues to be fever free and asymptomatic, recommend if returns to work frequent hand washing and wearing a mask. 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 Administered Medications: No medications were administered Disposition: 01/16/20 15:13 Discharged to Home. Impression: Fever, unspecified. - Condition is Stable. - Discharge Instructions: Fever, Adult. - Work release form, Medication Reconciliation Form, Thank You Letter, Antibiotic Education, Prescription Opioid Use form. - Follow up: Private Physician; When: As needed; Reason: Recheck today's complaints, Re-evaluation by your physician. - Problem is new. - Symptoms are resolved. Signatures: Scott Guardado RN RN em Williams, Irene, RN RN iw Nicolas Mccarthy MD MD yarn worker: (The following items were deleted from the chart) 15:50 15:13 01/16/2020 15:13 Discharged to Home. Impression: Fever, unspecified. Condition is em Stable. Forms are Medication Reconciliation Form, Thank You Letter, Antibiotic Education, Prescription Opioid Use. Follow up: Private Physician; When: As needed; Reason: Recheck today's complaints, Re-evaluation by your physician. Problem is new. Symptoms are resolved. rn
== END 2020-01-16 15:50 | disposition home or self-care (01) ==
LOC: ER 14:24
DX: R50.9 Fever, unspecified (principal)
CPT/HCPCS: 99283

== ENCOUNTER 2021-08-20 09:05 | Inpatient (IN) | payer OTHER ==
[2021-08-20 09:36] LABS: Urine Blood 3+ (Negative); Urine Glucose Negative (Negative); Urine Protein 2+ (Negative); Urine Specific Gravity 1.025 (1.005-1.030); Urine pH 5.5 (5.0-7.0)
[2021-08-20] MEDS ORDERED: ACETAMINOPHEN 500 MG TAB ONE (09:51)
[2021-08-20] MEDS ORDERED: NA CHLORIDE 0.9% 1,000 ML ONE ×2 (09:51→12:46)
[2021-08-20 10:21] LABS: Urine Bacteria 20-50 /HPF (<20); Urine Mucus 1+ /HPF (NONE SEEN)
[2021-08-20] MEDS ORDERED: CEFTRIAXONE 1000 MG/VIAL ONE (10:30)
[2021-08-20 10:38] LABS: Urine Specific Gravity/Preg 1.025 (1.005-1.030)
[2021-08-20 10:43] LABS: Absolute Lymphocytes (CBC) 0.5 K/uL (0.7-4.9); Basophils % 0.1 % (0-1.3); Hematocrit 36.7 % (36.0-45.0); Lymphocytes % 6.4 % (15.3-44.8); MPV 6.7 fL (7.6-11.3); RBC Red Blood Cell Count 3.79 M/uL (3.86-4.86)
[2021-08-20 11:03] LABS: BUN Blood Urea Nitrogen 5 mg/dL (7-18); Bicarbonate 21 mmol/L (21-32); Glucose Level 88 mg/dL (74-106); Potassium 3.9 mmol/L (3.5-5.1); Sodium Level 139 mmol/L (136-145)
--- NOTE | 2021-08-20 12:24 | RAD REPORT ---
EXAM DESCRIPTION: CT - Abdomen Pelvis W Contrast - 08/20/2021 11:57 am CLINICAL HISTORY: Abdominal pain COMPARISON: 2019 TECHNIQUE: Computed axial tomography of the abdomen pelvis was obtained. 100 cc Isovue-300 was admin istered intravenously. Oral contrast was not requested which limits evaluation of bowel. All CT scans are performed using dose optimization technique as appropriate and may include automated exposure control or mA/KV adjustment according to patient size. FINDINGS: Fatty liver. Spleen, pancreas, adrenal and right kidney appear unremarkable. 14 millimeter low to intermediate density mass left kidney. Mild stranding within the left perirenal fat. No evidence diverticulitis. No adnexal mass. IMPRESSION: 14 millimeter low to intermediate density mass within left kidney likely infection. It p robably represents an early abscess.
[2021-08-20] MEDS ORDERED: IBUPROFEN 400 MG TAB ONE (12:46)
[2021-08-20] MEDS ORDERED: IBUPROFEN 200 MG TAB PO ONE (12:46)
--- NOTE | 2021-08-20 12:47 | EDPHYS ---
Physician Documentation [facility] Name: Josee Anthony Age: 31 yrs Sex: Female : 1990 Arrival Date: 08/20/2021 Time: 09:10 Bed 18 Private MD: ED Physician Mary Benjamin HPI: 08/20 12:53 This 31 yrs old Female presents to ER via Ambulatory with complaints of kb Urinary Problem. 12:53 The patient complains of pain in the left flank and right flank. The pain does not kb radiate. Onset: The symptoms/episode began/occurred 4 day(s) ago. Modifying factors: The symptoms are alleviated by nothing. the symptoms are aggravated by nothing. Associated signs and symptoms: Pertinent positives: dysuria, Pertinent negatives: diarrhea, dizziness, fever, urinary frequency, headache, hematuria, nausea, pain radiating to the lower extremities, vomiting. Severity of pain: At its worst the pain was moderate in the emergency department the pain is unchanged. The patient has not experienced similar symptoms in the past. The patient has not recently seen a physician. Pt reports bilateral flank pain and burning with urination that started . 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 - Social history:: Smoking status: Patient denies any tobacco usage or history of. ROS: 12:50 Constitutional: Negative for fever, chills, and weight loss. kb 12:50 Back: Positive for flank pain, bilaterally. 12:50 : Positive for flank pain, burning with urination. 12:50 All other systems are negative. Exam: 12:51 Constitutional: This is a well developed, well nourished patient who is awake, alert, kb and in no acute distress. Head/Face: Normocephalic, atraumatic. ENT: Moist Mucous membranes Cardiovascular: Regular rate and rhythm with a normal S1 and S2. No gallops, murmurs, or rubs. No pulse deficits. Respiratory: Respirations even and unlabored. No increased work of breathing, no retractions or nasal flaring. Abdomen/GI: Soft, non-tender. No distention Skin: Warm, dry with normal turgor. Normal color. MS/ Extremity: Pulses equal, no cyanosis. Neurovascular intact. Full, normal range of motion. Neuro: Awake and alert, GCS 15, oriented to person, place, time, and situation. Moves all extremities. Normal gait. Psych: Awake, alert, with orientation to person, place and time. Behavior, mood, and affect are within normal limits. 12:51 Back: ROM is normal, normal spinal alignment noted, CVA tenderness, that is moderate, is noted bilaterally. Vital Signs: 09:35 BP 116 / 59; Pulse 138; Resp 20; Temp 102.2; Pulse Ox 99% ; Weight 63.5 kg; Height 5 2 ft. 2 in. (157.48 cm); 10:00 BP 106 / 59; Pulse 131; Resp 20; Temp 102.9; Pulse Ox 99% ; sl2 11:00 BP 108 / 62; Pulse 125; Resp 20; Temp 101.2; Pulse Ox 99% ; sl2 11:45 Temp 100.8; sl2 12:30 BP 102 / 64; Pulse 124; Resp 18; Temp 101.2; Pulse Ox 99% on R/A; sl2 13:30 BP 104 / 66; Pulse 121; Resp 18; Temp 100.9(O); Pulse Ox 100% on R/A; sl2 14:17 BP 107 / 70; Pulse 115; Resp 18; Temp 100.4(O); Pulse Ox 99% on R/A; sl2 15:16 BP 109 / 66; Pulse 121; Resp 18; Temp 99.4(O); Pulse Ox 99% on R/A; sl2 16:45 BP 113 / 63; Pulse 111; Resp 18; Temp 99.3(O); Pulse Ox 100% on R/A; sl2 09:35 Body Mass Index 25.61 (63.50 kg, 157.48 cm) 2 MDM: 09:22 Patient medically screened. isai 12:43 Data reviewed: vital signs, nurses notes. Data interpreted: Pulse oximetry: on room air kb is 99 %. Interpretation: normal. Counseling: I had a detailed discussion with the patient and/or guardian regarding: the historical points, exam findings, and any diagnostic results supporting the discharge/admit diagnosis, lab results, radiology results, the need for further work-up and treatment in the hospital. Physician consultation: Geean Morrell MD was contacted at 12:43, regarding admission, to the medical/surgical unit. patient's condition. 08/20 09:25 Order name: Urine Microscopic Only; Complete Time: 10:23 kb 08/20 09:36 Order name: Urine Dipstick-Ancillary; Complete Time: 09:38 EDMS 08/20 09:37 Order name: Urine --Ancillary (enter results); Complete Time: 10:48 eb 08/20 09:51 Order name: CBC with Diff; Complete Time: 10:48 kb 08/20 09:51 Order name: Basic Metabolic Panel; Complete Time: 11:04 kb 08/20 09:51 Order name: Blood Culture Adult (2) kb 08/20 09:52 Order name: Blood Culture EDNE 08/20 10:22 Order name: Urine Culture EDNE 08/20 12:55 Order name: COVID-19 SARS RT PCR (Document "Date of Onset" if Symptomatic) kb 08/20 12:56 Order name: SARS-COV-2 RT PCR; Complete Time: 15:08 EDNE 08/20 13:25 Order name: Comprehensive Metabolic Panel EDNE 08/20 13:25 Order name: Comprehensive Metabolic Panel EDNE 08/20 13:25 Order name: CBC with Automated Diff EDNE 08/20 13:25 Order name: CBC with Automated Diff EDNE 08/20 09:25 Order name: Urine Dipstick-Ancillary (obtain specimen); Complete Time: 09:28 kb 08/20 09:25 Order name: Urine Test (obtain specimen); Complete Time: 09:28 kb 08/20 09:51 Order name: IV Start; Complete Time: 10:12 kb 08/20 10:24 Order name: CT Abd/Pelvis - IV Contrast Only; Complete Time: 12:30 kb 08/20 13:25 Order name: Heart Healthy EDNE 08/20 13:26 Order name: CONS Physician Consult EDNE Administered Medications: 09:59 Drug: Tylenol 1000 mg Route: PO; sl2 11:52 Follow up: Response: No adverse reaction; Temperature is decreased; Pain is decreased sl2 10:05 Drug: NS 0.9% 1000 ml Route: IV; Rate: 1000 ml; Site: right wrist; sl2 11:52 Follow up: IV Status: Completed infusion; IV Intake: 1000ml sl2 10:52 Drug: Rocephin (cefTRIAXone) 1 grams Route: IV; Rate: calculated rate; Site: right sl2 wrist; 11:52 Follow up: Response: No adverse reaction; IV Status: Completed infusion; IV Intake: [id number] 12:46 Drug: Ibuprofen 600 mg Route: PO; sl2 13:06 Follow up: Response: No adverse reaction sl2 14:20 Follow up: Response: No adverse reaction; Temperature is decreased; Pain is decreased sl2 12:46 Drug: NS 0.9% 1000 ml Route: IV; Rate: 1000 ml; Site: right antecubital; sl2 13:06 Follow up: Response: No adverse reaction sl2 13:07 Follow up: Response: No adverse reaction sl2 14:20 Follow up: Response: No adverse reaction; IV Status: Completed infusion; IV Intake: sl2 1000ml Disposition Summary: 08/20/21 12:46 Hospitalization Ordered Hospitalization Status: Observation kb Provider: Geena Morrell [facility] Condition: Stable kb Problem: new kb Symptoms: are unchanged kb Bed/Room Type: Standard Room Assignment: 229(08/20/21 16:28) dw Diagnosis - Pyelonephritis acute kb Forms: - Medication Reconciliation Form kb - SBAR form kb Addendum: 08/22/2021 08:37 Co-signature as Attending Physician, Mary Benjamin MD I agree with the assessment and s p3 plan of care. Signatures: Dispatcher [employer] Jessica Aparicio, YESIKA FISHER-Theresa Forrest RN RN Mary Edwards MD MD sp3 Ina Santillan RN RN sl2 Corrections: (The following items were deleted from the chart) 08/20 16:28 12:46 kb dw
--- NOTE | 2021-08-20 12:47 | ER ---
Nurse's Notes [facility] Name: Josee Anthony Age: 31 yrs Sex: Female : 1990 Arrival Date: 08/20/2021 Time: 09:10 Bed 18 Private MD: Diagnosis: Pyelonephritis acute Presentation: 08/20 09:35 Chief complaint: Patient states: Patient presents to ED with c/o bilateral flank pain, sl2 dysuria, urinary frequency and fever. 09:35 Coronavirus screen: Vaccine status: Patient reports receiving the 2nd dose of the covid sl2 vaccine. Ebola Screen: Patient negative for fever greater than or equal to 101.5 degrees Fahrenheit, and additional compatible Ebola Virus Disease symptoms Patient denies exposure to infectious person. Patient denies travel to an Ebola-affected area in the 21 days before illness onset. No symptoms or risks identified at this time. Initial Sepsis Screen: Does the patient meet any 2 criteria? HR > 90 bpm. Yes Does the patient have a suspected source of infection? Yes:. Risk Assessment: Do you want to hurt yourself or someone else? Patient reports no desire to harm self or others. 09:35 Method Of Arrival: Ambulatory sl2 09:35 Acuity: ROBERT 2 sl2 15:21 Onset of symptoms is unknown. sl2 Triage Assessment: 09:47 General: Appears uncomfortable, well groomed, well developed, Behavior is calm, sl2 cooperative, appropriate for age. Pain: Complains of pain in bilateral flank pain Pain radiates to lower abdomen Pain currently is 8 out of 10 on a pain scale. at worst was 10 out of 10 on a pain scale. level that patient reports is acceptable is 3 out of 10 on a pain scale. Quality of pain is described as aching, sharp. EENT: No deficits noted. No signs and/or symptoms were reported regarding the EENT system. Neuro: No deficits noted. Level of Consciousness is awake, alert, obeys commands, Oriented to person, place, time, situation, Appropriate for age. Cardiovascular: No deficits noted. Reports. Cardiovascular: Capillary refill Rhythm is sinus tachycardia. Respiratory: No deficits noted. Reports. GI: No deficits noted. No signs and/or symptoms were reported involving the gastrointestinal system. : No deficits noted. No signs and/or symptoms were reported regarding the genitourinary system. Derm: No deficits noted. No signs and/or symptoms reported regarding the dermatologic system. Musculoskeletal: No deficits noted. No signs and/or symptoms reported regarding the musculoskeletal system. 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 - Social history:: Smoking status: Patient denies any tobacco usage or history of. Screenin:01 Abuse screen: Denies threats or abuse. sl2 10:01 Nutritional screening: No deficits noted. Tuberculosis screening: No symptoms or risk sl2 factors identified. Never had TB. Possible symptoms: None Risk factors: None. Fall Risk None identified. Sepsis Screening: . Infection:. Assessment: 09:50 General: Appears uncomfortable, well groomed, well developed, Behavior is calm, sl2 cooperative, appropriate for age, agitated, Reports chills for fever for bilateral flank pain, dysuria, urinary frequency. 09:50 Pain: Complains of pain in bilateral flank Pain radiates to lower abdomen Pain sl2 currently is 7 out of 10 on a pain scale. at worst was 10 out of 10 on a pain scale. level that patient reports is acceptable is 3 out of 10 on a pain scale. Quality of pain is described as aching, crampy, sharp. Neuro: No deficits noted. 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 Full function Gait is steady, Speech is normal, Facial symmetry appears normal. Cardiovascular: No deficits noted. Respiratory: No deficits noted. Airway is patent Trachea midline Respiratory effort is even, unlabored, Respiratory pattern is regular, symmetrical, Breath sounds are clear. GI: No deficits noted. No signs and/or symptoms were reported involving the gastrointestinal system. : No deficits noted. No signs and/or symptoms were reported regarding the genitourinary system. EENT: No deficits noted. No signs and/or symptoms were reported regarding the EENT system. Derm: No deficits noted. No signs and/or symptoms reported regarding the dermatologic system. Musculoskeletal: No deficits noted. No signs and/or symptoms reported regarding the musculoskeletal system. 10:41 Reassessment: Awaiting completion of 2nd blood culture for administration of IV sl2 antibiotics - Rocephin. 14:21 Pain: Complains of pain in right flank and left flank Pain currently is 1 out of 10 on sl2 a pain scale. 15:17 Reassessment: Patient lying quietly in bed - eating a meal - shows no signs of acute sl2 distress or discomfort. VSS decreased temp at 99.4 degrees fahrenheit. Awaiting bed assignment for inpatient admission. Will continue to re-assess and monitor. Vital Signs: 09:35 BP 116 / 59; Pulse 138; Resp 20; Temp 102.2; Pulse Ox 99% ; Weight 63.5 kg; Height 5 2 ft. 2 in. (157.48 cm); 10:00 BP 106 / 59; Pulse 131; Resp 20; Temp 102.9; Pulse Ox 99% ; sl2 11:00 BP 108 / 62; Pulse 125; Resp 20; Temp 101.2; Pulse Ox 99% ; sl2 11:45 Temp 100.8; sl2 12:30 BP 102 / 64; Pulse 124; Resp 18; Temp 101.2; Pulse Ox 99% on R/A; sl2 13:30 BP 104 / 66; Pulse 121; Resp 18; Temp 100.9(O); Pulse Ox 100% on R/A; sl2 14:17 BP 107 / 70; Pulse 115; Resp 18; Temp 100.4(O); Pulse Ox 99% on R/A; sl2 15:16 BP 109 / 66; Pulse 121; Resp 18; Temp 99.4(O); Pulse Ox 99% on R/A; sl2 16:45 BP 113 / 63; Pulse 111; Resp 18; Temp 99.3(O); Pulse Ox 100% on R/A; sl2 09:35 Body Mass Index 25.61 (63.50 kg, 157.48 cm) 2 ED Course: 09:10 Patient arrived in ED. mr 09:21 Jessica Lilly FNP-C [facility]. kb 09:21 Mary Benjamin MD is Attending Physician. kb 09:28 Urine Microscopic Only Sent. 5 09:36 Urine collected: clean catch specimen, grover colored. 5 09:42 Ina Santillan, CAMILA is Primary Nurse. sl2 09:47 Triage completed. sl2 09:50 No provider procedures requiring assistance completed. sl2 09:59 Missed attempt(s): 20 gauge in right in left antecubital area. 5 10:00 Patient has correct armband on for positive identification. Bed in low position. Call [facility] light in reach. Side rails up X 1. Adult w/ patient. Pillow given. Pulse ox on. NIBP on. 10:01 Inserted saline lock: 22 gauge in right wrist, using aseptic technique. sl2 10:05 Arm band placed on left wrist. sl2 11:[address] via wheelchair. sl2 11:57 CT Abd/Pelvis - IV Contrast Only In Process Unspecified. EDMS 12:44 Geena Morrell MD is Hospitalizing Provider. kb 17:02 Patient admitted, IV remains in place. sl2 Administered Medications: 09:59 Drug: Tylenol 1000 mg Route: PO; sl2 11:52 Follow up: Response: No adverse reaction; Temperature is decreased; Pain is decreased sl2 10:05 Drug: NS 0.9% 1000 ml Route: IV; Rate: 1000 ml; Site: right wrist; sl2 11:52 Follow up: IV Status: Completed infusion; IV Intake: 1000ml sl2 10:52 Drug: Rocephin (cefTRIAXone) 1 grams Route: IV; Rate: calculated rate; Site: right sl2 wrist; 11:52 Follow up: Response: No adverse reaction; IV Status: Completed infusion; IV Intake: [id number] 12:46 Drug: Ibuprofen 600 mg Route: PO; sl2 13:06 Follow up: Response: No adverse reaction sl2 14:20 Follow up: Response: No adverse reaction; Temperature is decreased; Pain is decreased sl2 12:46 Drug: NS 0.9% 1000 ml Route: IV; Rate: 1000 ml; Site: right antecubital; sl2 13:06 Follow up: Response: No adverse reaction sl2 13:07 Follow up: Response: No adverse reaction sl2 14:20 Follow up: Response: No adverse reaction; IV Status: Completed infusion; IV Intake: sl2 1000ml Intake: 11:52 IV: 1000ml; Total: 1000ml. sl2 11:52 IV: 10ml; Total: 1010ml. sl2 14:20 IV: 1000ml; Total: 2010ml. sl2 Outcome: 12:46 Decision to Hospitalize by Provider. kb 17:01 Admitted to Med/surg accompanied by tech, via stretcher, room 229, with chart, Report sl2 called to CAMILA Guzman 17:01 Condition: stable 17:01 Discharge instructions given to patient, Instructed on discharge instructions, the need for admit. 17:08 Patient left the ED. sl2 Signatures: Dispatcher [employer] EDMS Jessica Lilly, SITE DIRECTOR-C SITE DIRECTOR-Sherin Kim, Macarena Ina Hoff, RN RN sl2
[2021-08-20] MEDS ORDERED: Levofloxacin 750mg IV 750 MG/150 ML BAG IV SCH (14:00)
[2021-08-20] MEDS ORDERED: PIPER TAZO 3.375 GM in NA CHLORIDE 0.9% 100 ML IV SCH (17:00)
[2021-08-20] MEDS: NA CHLORIDE 0.9% 1,000 ML IV SCH (17:20)
[2021-08-20 17:29] VITALS: BMI 25.6
[2021-08-20] MEDS: MORPHINE 2 MG/ML SYR IV PRN (18:15)
[2021-08-20] MEDS ORDERED: FENTANYL CITR 100 MCG/2 ML IV ONE (20:23)
[2021-08-20] MEDS: ONDANSETRON 4 MG/2 ML VIAL IV PRN (20:35)
[2021-08-20] MEDS: ACETAMINOPHEN 500 MG TAB PO PRN (20:49)
[2021-08-20] MEDS ORDERED: HYDROCORTISONE SUC 100 MG INJ IV ONE (21:43)
[2021-08-20] MEDS ORDERED: ACETAMINOPHEN 500 MG TAB PO SCH (22:00)
[2021-08-20] MEDS: ACETAMINOPHEN 500 MG TAB PO SCH (22:00)
--- NOTE | 2021-08-20 22:06 | P.HP ---
Certification for Inpatient Patient admitted to: Inpatient With expected LOS: >2 Midnights Patient will require the following post-hospital care: None Practitioner: I am a practitioner with admitting privileges, knowledge of patient current condition, hospital course, and medical plan of care. Services: Services provided to patient in accordance with Admission requirements found in Title 42 Section 412.3 of the Code of Federal Regulations Patient History Date of Service: 08/20/21 Reason for admission: Left flank tenderness History of Present Illness: Pt is a 31yo who presented to the hospital with left-sided flank pain. Pain was mainly in the left flank region. Decision was made to come into the emergency room. In the ER patient had a urine analysis which was positive. Patient is a CT scan which revealed a 14 mm abscess. Patient will be treated with IV antibiotics aggressively. At this time, the abscess is not amenable to any kind of drainage. Infectious disease consultation. If abscess of large is and unable to be drained by interventional Radiology than patient may need Urology consultation. Patient denies any other medical complaints. Patient's only once prior had a urinary tract infection. Patient be a aggressively hydrated with pain control and antibiotic therapy as mentioned above. Allergies No Known Allergies Allergy (Unverified 07/01/12 21:50) Home Medications: NK [No Home Meds] 08/20/21 - Past Medical/Surgical History Has patient received pneumonia vaccine in the past: No Past Medical History: Patient denies medical history -: x3, most recent 2013 - Family History Father Family History: Reviewed- Non-Contributory - Social History Smoking Status: Current every day smoker Alcohol use: Yes CD- Drugs: No Caffeine use: Yes Place of Residence: Home Review of Systems 10-point ROS is otherwise unremarkable Physical Examination - Vital Signs Temperature: 102.6 F Blood Pressure: 113/63 Pulse: 111 Respirations: 19 Pulse Ox (%): 99 - Physical Exam General: Alert, In no apparent distress, Oriented x3 HEENT: Atraumatic, PERRLA, Mucous membr. moist/pink, EOMI, Sclerae nonicteric Neck: Supple, 2+ carotid pulse no bruit, No LAD, Without JVD or thyroid abnormality Respiratory: Clear to auscultation bilaterally, Normal air movement Cardiovascular: Regular rate/rhythm, Normal S1 S2 Gastrointestinal: Normal bowel sounds, Soft and benign, Non-distended, No rebound, No guarding, Tenderness (Left flank tenderness) Musculoskeletal: No clubbing, No swelling, No tenderness Integumentary: No rashes Neurological: Normal gait, Normal speech, Normal strength at 5/5 x4 extr, Normal tone, Sensation intact, Cranial nerves 3-12 intact Lymphatics: No axilla or inguinal lymphadenopathy - Studies Laboratory Data (last 24 hrs) 08/20/21 10:31: Sodium 139, Potassium 3.9, BUN 5 L, Creatinine 0.67, Glucose 88 08/20/21 10:31: WBC 8.10, Hgb 12.4, Hct 36.7, Plt Count 174 Assessment & Plan - Problems (Diagnosis) (1) Renal abscess, left Current Visit: Yes Status: Acute - Plan 1. Continue with IV hydration 2. Continue with IV antibiotics 3. Continue with pain control & antipyretics 4. Diet as tolerated 5. Repeat CT imaging in 48-72 hr 6. Check UA with microscopy and cultures 7. GI and DVT prophylaxis Discharge Plan: Home Plan to discharge in: Greater than 2 days - Advance Directives Does patient have a Living Will: No Does patient have a Durable POA for Healthcare: No - Code Status/Comfort Care Code Status Assessed: Yes Code Status: Full Code Critical Care: No Time Spent Managing PTS Care (In Minutes): 45
[2021-08-21] MEDS: PIPER TAZO 4.5 GM in NA CHLORIDE 0.9% 100 ML IV SCH ×3 (02:10→16:17)
[2021-08-21] MEDS ORDERED: NA CHLORIDE 0.9% 100 ML ONE (02:12)
[2021-08-21] MEDS: NA CHLORIDE 0.9% 1,000 ML IV SCH ×3 (02:13→20:21)
[2021-08-21] MEDS: ACETAMINOPHEN 500 MG TAB PO SCH ×2 (02:17→07:11)
[2021-08-21 06:19] LABS: Absolute Lymphocytes (CBC) 0.6 K/uL (0.7-4.9); Basophils % 0.1 % (0-1.3); Hematocrit 33.8 % (36.0-45.0); Lymphocytes % 4.9 % (15.3-44.8); MPV 7.2 fL (7.6-11.3); RBC Red Blood Cell Count 3.55 M/uL (3.86-4.86)
[2021-08-21 06:36] LABS: ALT/SGPT 22 U/L (12-78); AST/SGOT 15 U/L (15-37); Albumin 2.8 g/dL (3.4-5.0); Alkaline Phosphatase 59 U/L (45-117); BUN Blood Urea Nitrogen 7 mg/dL (7-18); Bicarbonate 23 mmol/L (21-32); Bilirubin Total 0.4 mg/dL (0.2-1.0); Glucose Level 150 mg/dL (74-106); Magnesium 2.2 mg/dL (1.8-2.4); Phosphorus 2.7 mg/dL (2.5-4.9); Potassium 3.5 mmol/L (3.5-5.1); Protein, Total 6.4 g/dL (6.4-8.2); Sodium Level 142 mmol/L (136-145)
[2021-08-21 06:54] LABS: Blood Morphology Comment NOT SEEN (NOT SEEN); Platelet Estimate ADEQ; White Blood Cell Scan OK (OK)
--- NOTE | 2021-08-21 09:28 | RAD REPORT ---
EXAM DESCRIPTION: US - Renal Ultrasound-Complete - 08/21/2021 9:09 am CLINICAL HISTORY: Renal mass COMPARISON: August 20, 2021 cat scan FINDINGS: The right kidney measures 10 cm with a normal echotexture. The left kidney measures 11 cm with a normal echotexture. There is vague hypoechoic area within the m id to lower lateral aspect of the left kidney likely corresponding to the mass. Hydronephrosis is not seen. No gross abnormality of bladder IMPRESSION: The previously described 14 millimeter early abscess left kidney is less well visualized and delineated on the ultrasound. Most likely this represents improvement status post treatment. If clinically the patient symptoms worsen then follow up CT with contrast would be recommended
[2021-08-21] MEDS ORDERED: TRAMADOL HCL 50 MG TAB PO PRN (14:16)
[2021-08-21] MEDS ORDERED: HYDROCODONE/APAP 7.5/325 MG TAB PO PRN (14:16)
--- NOTE | 2021-08-21 14:17 | P.PN ---
Subjective Date of Service: 08/21/21 Primary Care Provider: None Chief Complaint: Left flank tenderness Subjective: Improving (Left flank pain improved) Physical Examination - Vital Signs Temperature: 97.8 F Blood Pressure: 114/55 Pulse: 89 Respirations: 16 Pulse Ox (%): 99 - Studies Microbiology Data (last 24 hrs): 08/20/21 10:31 Blood - Blood Anaerobic Blood Culture - Final Assessment & Plan Discharge Plan: Home Plan to discharge in: 48 Hours Physician Review Additional Text: COVID: Negative CT scan: COMPARISON: 2018 TECHNIQUE: Computed axial tomography of the abdomen pelvis was obtained. 100 cc Isovue-300 was administered intravenously. Oral contrast was not requested which limits evaluation of bowel. All CT scans are performed using dose optimization technique as appropriate and may include automated exposure control or mA/KV adjustment according to patient size. FINDINGS: Fatty liver. Spleen, pancreas, adrenal and right kidney appear unremarkable. 14 millimeter low to intermediate density mass left kidney. Mild stranding within the left perirenal fat. No evidence diverticulitis. No adnexal mass. IMPRESSION: 14 millimeter low to intermediate density mass within left kidney likely infection. It probably represents an early abscess. Renal US: COMPARISON: August 20, 2021 cat scan FINDINGS: The right kidney measures 10 cm with a normal echotexture. The left kidney measures 11 cm with a normal echotexture. There is vague hypoechoic area within the mid to lower lateral aspect of the left kidney likely corresponding to the mass. Hydronephrosis is not seen. No gross abnormality of bladder IMPRESSION: The previously described 14 millimeter early abscess left kidney is less well visualized and delineated on the ultrasound. Most likely this represents improvement status post treatment. If clinically the patient symptoms worsen then follow up CT with contrast would be recommended Physical Exam: GENERAL: The patient is a well-developed, well-nourished, in no apparent distress. Alert and oriented x3. VITAL SIGNS: Reviewed HEENT: Neck supple LUNGS: Clear to auscultation. No crackles or wheezes are heard. HEART: Regular rate and rhythm, no appreciable gallops, rubs, murmurs or extra heart sounds ABDOMEN: Soft nontender. No significant flank pain EXTREMITIES: Without any cyanosis, clubbing, rash, lesions or peripheral edema. NEUROLOGIC: The patient is oriented to person, place and time. Strength and sensation are grossly intact. Face is symmetric. SKIN: Normal color, turgor and temperature. No ulcerations or rashes noted. Impression: Left flank pain secondary to pyelonephritis with 14 mm low density mass likely early abscess Plan: Continue IV antibiotic therapy. Await urine and blood culture results. Renal ultrasound shows improvement. Await recommendations from infectious disease. Encourage oral intake. Provide medication for pain. Code Status: Full Code DVT prophylaxis: Lovenox Advanced Care Planning-30 minutes: Anticipate discharge home when clinically improved. Time Spent Managing Pts Care (In Minutes): 55
[2021-08-21] MEDS ORDERED: ENOXAPARIN 40 MG/0.4 ML SQ SCH (17:00)
--- NOTE | 2021-08-21 18:25 | EKG ---
Test Date: 2021-08-20 Test Time: 21:05:24 Ladle Puller: ELICEO MEASUREMENT RESULTS: Intervals: Rate: 129 RI: 140 QRSD: 90 QT: 278 QTc: 407 [place]: P: 71 RI: 140 QRS: 71 T: 63 INTERPRETIVE STATEMENTS: Sinus tachycardia Otherwise normal ECG No previous ECG available for comparison Electronically Signed On 08-21-21 18:23:29 GOLF TEACHER by Franklin Rodriguez
[2021-08-21] MEDS: ACETAMINOPHEN 500 MG TAB PO PRN (18:40)
[2021-08-21] MEDS: MORPHINE 2 MG/ML SYR IV PRN (20:21)
[2021-08-21 21:17] VITALS: O2SAT 98
[2021-08-22] MEDS: ACETAMINOPHEN 500 MG TAB PO PRN (00:10)
[2021-08-22] MEDS: PIPER TAZO 4.5 GM in NA CHLORIDE 0.9% 100 ML IV SCH (00:11)
[2021-08-22 04:11] LABS: Absolute Lymphocytes (CBC) 1.4 K/uL (0.7-4.9); Basophils % 0.3 % (0-1.3); Hematocrit 29.5 % (36.0-45.0); Lymphocytes % 18.6 % (15.3-44.8); MPV 7.7 fL (7.6-11.3); RBC Red Blood Cell Count 3.13 M/uL (3.86-4.86)
[2021-08-22 04:31] LABS: BUN Blood Urea Nitrogen 6 mg/dL (7-18); Bicarbonate 24 mmol/L (21-32); Glucose Level 124 mg/dL (74-106); Potassium 3.2 mmol/L (3.5-5.1); Sodium Level 142 mmol/L (136-145)
[2021-08-22 04:32] VITALS: BP 114/62; TEMP 98.8
[2021-08-22] MEDS: NA CHLORIDE 0.9% 1,000 ML IV SCH (05:48)
[2021-08-22] MEDS ORDERED: POTASSIUM 25 MEQ EFFERV TAB PO ONE (06:00)
[2021-08-22] MEDS: MORPHINE 2 MG/ML SYR IV PRN (06:00)
--- NOTE | 2021-08-22 06:14 | P.PN ---
Subjective Date of Service: 08/22/21 Primary Care Provider: None Chief Complaint: Left flank tenderness Subjective: Improving, Doing well Physical Examination - Vital Signs Temperature: 98.8 F Blood Pressure: 114/62 Pulse: 92 Respirations: 18 Pulse Ox (%): 99 - Studies Microbiology Data (last 24 hrs): 08/20/21 10:31 Blood - Blood Anaerobic Blood Culture - Final Assessment & Plan Discharge Plan: Home Plan to discharge in: 24 Hours Physician Review Additional Text: COVID: Negative CT scan: COMPARISON: 2018 TECHNIQUE: Computed axial tomography of the abdomen pelvis was obtained. 100 cc Isovue-300 was administered intravenously. Oral contrast was not requested which limits evaluation of bowel. All CT scans are performed using dose optimization technique as appropriate and may include automated exposure control or mA/KV adjustment according to patient size. FINDINGS: Fatty liver. Spleen, pancreas, adrenal and right kidney appear unremarkable. 14 millimeter low to intermediate density mass left kidney. Mild stranding within the left perirenal fat. No evidence diverticulitis. No adnexal mass. IMPRESSION: 14 millimeter low to intermediate density mass within left kidney likely infection. It probably represents an early abscess. Renal US: COMPARISON: August 20, 2021 cat scan FINDINGS: The right kidney measures 10 cm with a normal echotexture. The left kidney measures 11 cm with a normal echotexture. There is vague hypoechoic area within the mid to lower lateral aspect of the left kidney likely corresponding to the mass. Hydronephrosis is not seen. No gross abnormality of bladder IMPRESSION: The previously described 14 millimeter early abscess left kidney is less well visualized and delineated on the ultrasound. Most likely this represents improvement status post treatment. If clinically the patient symptoms worsen then follow up CT with contrast would be recommended Physical Exam: GENERAL: The patient is a well-developed, well-nourished, in no apparent distress. Alert and oriented x3. VITAL SIGNS: Reviewed HEENT: Neck supple LUNGS: Clear to auscultation. No crackles or wheezes are heard. HEART: Regular rate and rhythm, no appreciable gallops, rubs, murmurs or extra heart sounds ABDOMEN: Soft nontender. Pain to the left flank improved. EXTREMITIES: Without any cyanosis, clubbing, rash, lesions or peripheral edema. NEUROLOGIC: The patient is oriented to person, place and time. Strength and sensation are grossly intact. Face is symmetric. SKIN: Normal color, turgor and temperature. No ulcerations or rashes noted. Impression: Left flank pain secondary to pyelonephritis with 14 mm low density mass likely early abscess with ultrasound showing improvement, urine culture positive for E. coli Plan: Patient doing well overall. Urine culture positive for E. coli. UTI prevention addressed in detail. Case discussed with urology. We will plan for discharge on Levaquin 500 mg daily for 12 more days. Repeat urine culture obtained today. Patient should follow-up with urology as an outpatient to further address. Recommend repeat CT scan or renal ultrasound to monitor resolution. This can be further addressed with urology. Code Status: Full Code DVT prophylaxis: Lovenox Advanced Care Planning-30 minutes: Home at discharge Time Spent Managing Pts Care (In Minutes): 55
--- NOTE | 2021-08-22 08:26 | P.DS ---
Admission Date: 08/20/21 Discharge Date: 08/22/21 Primary Care Provider: None Disposition: ROUTINE DISCHARGE Discharge Condition: GOOD Reason for Admission: Left flank tenderness Consultations: none Procedures: COVID: Negative CT scan: COMPARISON: 2018 TECHNIQUE: Computed axial tomography of the abdomen pelvis was obtained. 100 cc Isovue-300 was administered intravenously. Oral contrast was not requested which limits evaluation of bowel. All CT scans are performed using dose optimization technique as appropriate and may include automated exposure control or mA/KV adjustment according to patient size. FINDINGS: Fatty liver. Spleen, pancreas, adrenal and right kidney appear unremarkable. 14 millimeter low to intermediate density mass left kidney. Mild stranding within the left perirenal fat. No evidence diverticulitis. No adnexal mass. IMPRESSION: 14 millimeter low to intermediate density mass within left kidney likely infection. It probably represents an early abscess. Renal US: COMPARISON: August 20, 2021 cat scan FINDINGS: The right kidney measures 10 cm with a normal echotexture. The left kidney measures 11 cm with a normal echotexture. There is vague hypoechoic area within the mid to lower lateral aspect of the left kidney likely corresponding to the mass. Hydronephrosis is not seen. No gross abnormality of bladder IMPRESSION: The previously described 14 millimeter early abscess left kidney is less well visualized and delineated on the ultrasound. Most likely this represents improvement status post treatment. If clinically the patient symptoms worsen then follow up CT with contrast would be recommended Medical Problem List: Left flank pain secondary to pyelonephritis with 14 mm low density mass likely early abscess with ultrasound showing improvement, urine culture positive for E. coli Brief History of Present Illness: 31-year-old female with history of UTIs in the past presented with left flank pain. Patient was evaluated in the emergency room. Patient found to have left pyelonephritis. Patient was admitted for treatment. Hospital Course: Patient presented with left flank pain secondary to pyelonephritis. CT scan showed a 14 mm low to intermediate density mass within the left kidney likely infection/early abscess. Patient was started on IV antibiotic therapy. Her condition improved. Renal ultrasound showed less visualization and delineation on ultrasound of the early abscess. This represents improvement in her status. Case was discussed with urology who agreed with plan of care. Urine culture was positive for E. coli. At discharge patient will continue with Levaquin 750 mg daily for 12 days. Repeat urine culture obtained prior to discharge. This can be followed up with her PCP or urology. Patient may take Tylenol or ibuprofen as needed for pain. Patient should establish care with a PCP to follow-up this hospitalization and continue her care. Patient will need to follow-up with urology as an outpatient to follow-up this hospitalization as well. Repeat studyCT scan or renal ultrasound should be done to monitor resolution of abscess. Education on pyelonephritis will be provided. Vital Signs/Physical Exam: Temp Pulse Resp BP Pulse Ox 98.8 F 92 H 18 114/62 99 08/22/21 08:25 08/22/21 08:25 08/22/21 08:25 08/22/21 08:25 08/22/21 08:25 General: Alert, In no apparent distress, Oriented x3, Cooperative HEENT: Atraumatic Neck: Supple Respiratory: Clear to auscultation bilaterally, Normal air movement Cardiovascular: Normal pulses, Regular rate/rhythm Gastrointestinal: Normal bowel sounds, No masses, No rebound, No guarding, Tenderness (No significant left-sided) Musculoskeletal: No erythema, No tenderness, No warmth Integumentary: No tenderness/swelling Neurological: Normal speech, Normal strength at 5/5 x4 extr, Normal tone, Normal affect Laboratory Data at Discharge: WBC 7.80 K/uL (4.3-10.9) D 08/22/21 03:28 Hgb 10.1 g/dL (12.0-15.0) L 08/22/21 03:28 Hct 29.5 % (36.0-45.0) L 08/22/21 03:28 Plt Count 163 K/uL (152-406) 08/22/21 03:28 Sodium 142 mmol/L (136-145) 08/22/21 03:28 Potassium 3.2 mmol/L (3.5-5.1) L 08/22/21 03:28 BUN 6 mg/dL (7-18) L 08/22/21 03:28 Creatinine 0.43 mg/dL (0.55-1.3) L 08/22/21 03:28 Glucose 124 mg/dL (74-106) H 08/22/21 03:28 Phosphorus 2.7 mg/dL (2.5-4.9) 08/21/21 06:10 Magnesium 2.0 mg/dL (1.8-2.4) 08/22/21 03:28 Total Bilirubin 0.4 mg/dL (0.2-1.0) 08/21/21 06:10 AST 15 U/L (15-37) 08/21/21 06:10 ALT 22 U/L (12-78) 08/21/21 06:10 Alkaline Phosphatase 59 U/L (45-117) 08/21/21 06:10 Home Medications: levoFLOXacin [Levaquin*] 750 mg PO DAILY #12 tab 08/22/21 New Medications: levoFLOXacin [Levaquin*] 750 mg PO DAILY #12 tab Physician Discharge Instructions: Patient presented with left flank pain secondary to pyelonephritis. CT scan showed a 14 mm low to intermediate density mass within the left kidney likely infection/early abscess. Patient was started on IV antibiotic therapy. Her condition improved. Renal ultrasound showed less visualization and delineation on ultrasound of the early abscess. This represents improvement in her status. Case was discussed with urology who agreed with plan of care. Urine culture was positive for E. coli. At discharge patient will continue with Levaquin 750 mg daily for 12 days. Repeat urine culture obtained prior to discharge. This can be followed up with her PCP or urology. Patient may take Tylenol or ibuprofen as needed for pain. Patient should establish care with a PCP to follow-up this hospitalization and continue her care. Patient will need to follow-up with urology as an outpatient to follow-up this hospitalization as sabi abarca. Repeat studyCT scan or renal ultrasound should be done to monitor resolution of abscess. Education on pyelonephritis will be provided. Diet: Regular Activity: Ad david Followup: NONE,NONE [Primary Care Provider] - Time spent managing pt's care (in minutes): 55
[2021-08-22] MEDS ORDERED: levoFLOXacin 750 MG TAB PO SCH (09:00)
[2021-08-22] MEDS: ONDANSETRON 4 MG/2 ML VIAL IV PRN (09:19)
== END 2021-08-22 10:05 | disposition home or self-care (01) | DRG 690 ==
LOC: ER 09:05 → ERHOLD 13:22 → 2ND 17:01
PROVIDERS: ADMIT Hospitalist; ATTEND Family Medicine
DX: N10 Acute pyelonephritis (principal); N15.1 Renal and perinephric abscess; B96.20 Unspecified Escherichia coli [E. coli] as the cause of diseases classified elsewhere; F17.200 Nicotine dependence, unspecified, uncomplicated; Z20.822 Contact with and (suspected) exposure to COVID-19
CPT/HCPCS: 36415; 74177; 76770; 80048; 80053; 81003; 81015; 81025; 83605; 83735; 84100; 84145; 85025; 87040; 87077; 87086; 87088; 87186; 93005; 96361; 96365; 99285; J1650; J1720; J2270; J2405; J2543; J3010; J7030; Q9967; U0003

== ENCOUNTER 2021-11-07 08:34 | Emergency (ER) | payer OTHER ==
--- OUTSIDE RECORDS SUMMARY | 2021-11-07 08:39 | XMS REPORT | Continuity of Care Document ---
:[address] [facility] t Address [address] [place] [address] Care Team Providers Name Role Phone Pcp, Does Not Have A Primary Care Physician Yaakov JENSEN, T Attending Clinician Unavailable Only, Db Test Attending Clinician Unavailable Ronald FISHER Attending Clinician White_M Attending Clinician Unavailable Davion VILLAGOMEZ Attending Clinician DAVION Attending Clinician Unavailable G_Pappas Attending Clinician Unavailable White_M Admitting Clinician Unavailable G_Pappas Admitting Clinician Unavailable Payers Payer Name Policy Type Policy Number Effective Date Expiration Date [facility] [id number] 2013 CHOICE (MEDICAID 00:00:00 REPLACEMENT - HMO) Problems Condition Condition Condition Status Onset Resolution Last Treating Co mments Source Name Details Category Date Date Treatment Clinician Date 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 3-04 da 00:00: Medical 00 Group Dysmenorrh Dysmenorrh Problem Active M [place] ea ea 2-23 da 00:00: Medical 00 Group Menorrhagi Menorrhagi Problem Active M [place] a a 2-23 da 00:00: Medical 00 Group Sterilizat Sterilizat Problem Active M [place] ion ion 2-23 da requested Requested 00:00: Medi corona 00 Group No known No known Disease Unive rs active active ity of problems problems [facility] Allergies, Adverse Reactions, Alerts Allergy Allergy Status Severity Reaction(s) Onset Inactive Treating Comm ents Source Name Type Date Date Clinician Mushroom Allergy Active Moderate Hives [place] to 7-29 da substanc 00:00: Medical e 00 Group NO KNOWN Drug Active Univers ALLERGIE Class ity of S [facility] Social History Social Habit Start Date Stop Date Quantity Comments Source Exposure to Yes [facility] SARS-CoV-2 (event) Medica l [place] Sex Assigned At [address] 1990 [facility] 00:00:00 00:00:00 Medical Branch Smoking Status Start Date Stop Date Source Light Tobacco Smoker Sahra Santamaria edical Group Unknown if ever smoked [facility] Medications Ordered Filled Start Stop Current Ordering Indication Dosage Frequency Signature Comments Components Source Medication Medication Date Date Medication? Clinician (SIG) Name Name maalox:diph 2019- 2020- No 15mL 15 mL, Uni vers enhydrAMINE 2-09-13 Oral, ity of :lidocaine 20:45: 19:45 ONCE, 1 [place] as 2 % viscous 00 :00 dose, Tue Med ical 1:1:1 09/13/20 at [place] [facility]) Routine oral suspension 15 mL sucralfate 2019-10 Yes [id number] 1g Take 1 U nivers 1 gram 2-01 tablet by ity of tablet 00:00: mouth [place] 00 before Medical meals and Branch at bedtime. ondansetron 2019-10 Yes [id number] 4mg Take 1 Univers 4 mg 2-01 tablet by ity of disintegrat 00:00: mouth [place] ing tablet 00 every 4 Medica l (four) Branch hours as needed for Nausea and Vomiting (N/V). ibuprofen 2019-10 Yes [id number] 600mg Take 1 U nivers 600 mg 2-01 tablet by ity of tablet 00:00: mouth [place] 00 every 6 Medical (six) Branch hours as needed for Pain (scale 4-6). sucralfate 2019- Yes [id number] 1g Take 1 U nivers 1 gram 2-01 tablet by ity of tablet 00:00: mouth [place] 00 before Medical meals and Branch at bedtime. ondansetron 2020- Yes [id number] 4mg Take 1 Univers 4 mg 2-01 tablet by ity of disintegrat 00:00: mouth [place] ing tablet 00 every 4 Medica l (four) Branch hours as needed for Nausea and Vomiting (N/V). ibuprofen 2019- Yes [id number] 600mg Take 1 U nivers 600 mg 2-01 tablet by ity of tablet 00:00: mouth [place] 00 every 6 Medical (six) Branch hours as needed for Pain (scale 4-6). sucralfate 2020-1 Yes [id number] 1g Take 1 U nivers 1 gram 2-01 tablet by ity of tablet 00:00: mouth [place] 00 before Medical meals and Branch at bedtime. ondansetron 2020-1 Yes [id number] 4mg Take 1 Univers 4 mg 2-01 tablet by ity of disintegrat 00:00: mouth [place] ing tablet 00 every 4 Medica l (four) Branch hours as needed for Nausea and Vomiting (N/V). ibuprofen 2020- Yes [id number] 600mg Take 1 U nivers 600 mg 2-01 tablet by ity of tablet 00:00: mouth [place] 00 every 6 Medical (six) Branch hours as needed for Pain (scale 4-6). sucralfate 2020-1 Yes [id number] 1g Take 1 U nivers 1 gram 2-01 tablet by ity of tablet 00:00: mouth [place] 00 before Medical meals and Branch at bedtime. sucralfate 2020-1 Yes [id number] 1g Take 1 U nivers 1 gram 2-01 tablet by ity of tablet 00:00: mouth [place] 00 before Medical meals and Branch at bedtime. ondansetron 2020-1 Yes [id number] 4mg Take 1 Univers 4 mg 2-01 tablet by ity of disintegrat 00:00: mouth [place] ing tablet 00 every 4 Medica l (four) Branch hours as needed for Nausea and Vomiting (N/V). ibuprofen 2019-1 Yes [id number] 600mg Take 1 U nivers 600 mg 2-01 tablet by ity of tablet 00:00: mouth [place] 00 every 6 Medical (six) Branch hours as needed for Pain (scale 4-6). ondansetron 2020-1 Yes [id number] 4mg Take 1 Univers 4 mg 2-01 tablet by ity of disintegrat 00:00: mouth [place] ing tablet 00 every 4 Medica l (four) Branch hours as needed for Nausea and Vomiting (N/V). ibuprofen 2020-1 Yes [id number] 600mg Take 1 U nivers 600 mg 2-01 tablet by ity of tablet 00:00: mouth [place] 00 every 6 Medical (six) Branch hours as needed for Pain (scale 4-6). metronidazo metronidazo No 1 BID metronidaz [place] 500 mg le 500 mg ole 500 mg da tablet Take tablet Take tablet Medical 1 tablet 1 tablet Take 1 Group twice a day twice a day tablet by oral by oral twice a route for 7 route for 7 day by days. days. oral route for 7 days. Zoloft 25 Zoloft 25 No 1 Q1D Zoloft 25 [place] mg tablet mg tablet mg tablet da Take 1 Take 1 Take 1 Medical tablet tablet tablet Group every day every day every day by oral by oral by oral route. route. route. Immunizations Ordered Filled Immunization Date Status Comments [facility] Immunization Name Name Hep B, Adol or Pedi 2001-10-30 Completed Unive rsity of Dosage 00:00:00 [facility] Varicella 2001-10-30 Completed University of (varivax)(chicken 00:00:00 [facility] edical pox) Branch Hep B, Adol or Pedi 2001-10-30 Completed Unive rsity of Dosage 00:00:00 [facility] Varicella 2001-10-30 Completed University of (varivax)(chicken 00:00:00 [facility] edical pox) Branch Hep B, Adol or Pedi 2001-10-30 Completed Unive rsity of Dosage 00:00:00 [facility] Varicella 2001-10-30 Completed University of (varivax)(chicken 00:00:00 [facility] edical pox) Branch Hep B, Adol or Pedi 2001-10-30 Completed Unive rsity of Dosage 00:00:00 [facility] Varicella 2001-10-30 Completed University of (varivax)(chicken 00:00:00 [facility] edical pox) Branch Hep B, Adol or Pedi 2001-10-30 Completed Unive rsity of Dosage 00:00:00 [facility] Varicella 2001-10-30 Completed University of (varivax)(chicken 00:00:00 [facility] edical pox) Branch Vital Signs Vital Name Observation Time Observation Value Comments Source BP Diastolic 2021-05-11 00:00:00 72 mm[facility]Hg] [facility] Height 2021-05-11 00:00:00 62 [in_i] [facility] BMI (Body Mass 2021-05-11 00:00:00 22.9 kg/m2 [facility] Medical Index) Group BP Systolic 2021-05-11 00:00:00 120 mm[Hg] [facility] Body Weight 2021-05-11 00:00:00 125 [lb_av] [facility] Systolic blood 2020-09-13 21:01:00 109 mm[Hg] Univer sity of pressure [facility] Diastolic blood 2020-09-13 21:01:00 62 mm[Hg] Unive rsity of pressure [facility] Heart rate 2020-09-13 21:01:00 80 /min [facility] Body temperature 2020-09-13 21:01:[address] 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) Group BP Systolic 2019-04-27 00:00:00 124 mm[Hg] [facility] Body Weight 2019-04-27 00:00:00 121.6 [lb_av] [facility] BP Diastolic 2019-04-13 00:00:00 82 mm[Hg] [facility] Height 2019-04-13 00:00:00 62 [in_i] [facility] BMI (Body Mass 2019-04-13 00:00:00 22.1 kg/m2 [facility] inspector 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 Medical Index) Group BP Systolic 2019-04-13 00:00:00 119 mm[Hg] [facility] Body Weight 2019-04-13 00:00:00 120.9 [lb_av] [facility] BP Diastolic 2019-03-10 00:00:00 82 mm[Hg] [facility] Height 2019-03-10 00:00:00 62 [in_i] [facility] BMI (Body Mass 2019-03-10 00:00:00 22.1 [facility]/m2 [facility] BP Systolic 2019-03-10 00:00:00 116 mm[Hg] [facility] Body Weight 2019-03-10 00:00:00 120.8 [lb_av] [facility] BP Diastolic 2018-11-27 00:00:00 74 mm[Hg] [facility] Height 2018-11-27 00:00:00 62 [in_i] [facility] BMI (Body Mass 2018-11-27 00:00:00 21.6 kg/m2 [facility] Group BP Systolic 2018-11-27 00:00:00 118 mm[Hg] [facility] Body Weight 2018-11-27 00:00:00 118 [lb_av] [facility] Procedures Procedure Date / Time Performing Clinician Source Performed XR CHEST 1 VW 2020-09-13 20:19:00 Davion Gómez [facility] LIPASE 2020-09-13 19:49:00 [facility] TROP[facility] I 2020-09-13 19:49:00 [facility] HEPATIC FUNCTION PANEL 2020-09-13 19:49:00 Gómez Ricardo [facility] ([id number]) (ALB,T.PRO,BILI [facility] T,BU/BC,ALT,AST,ALK PHOS) BASIC METABOLIC PANEL 2020-09-13 19:49:00 Gómez Ricardo [facility] (NA, K, CL, CO2, Medical Branch GLUCOSE, BUN, CREATININE, CA) CBC WITH DIFF 2020-09-13 19:49:00 Davion Gómez [facility] PROTHROMBIN TIME / INR 2020-09-13 19:49:00 Gómez Ricardo [facility] ACTIVATED PARTIAL 2020-09-13 19:49:00 [facility]ómez Ricardo [facility] 2020-09-13 19:49:00 [facility] ADC / LCC - DRUG SCREEN 2020-09-13 19:49:00 Gómez Ricardo [facility] [place] [facility] Medical Branch COVID-19 (ID NOW RAPID 2020-09-13 19:49:00 Gómez Ricardo [facility] TESTING) Medical Branch POCT TEST 2020-09-13 19:45:00 Gómez Ricardo [facility] Medical Branch NOTICE OF PRIVACY 2020-09-13 19:03:39 Doctor Unassigned, No Univ [facility] PRACTICES Name Medical Branch CONSENT/REFUSAL FOR 2020-09-13 19:02:47 [facility]igned, No [facility] Name Medical Branch Tubal Ligation (Surg) 2019-04-15 00:00:00 [facility] Caesarean Section 2013-11-27 00:00:00 [facility] Caesarean Section 2009-04-11 00:00:00 [facility] Caesarean Section 2008-01-30 00:00:00 [facility] Plan of Care Planned Activity Planned Date Details Comments Source Diagnostic Test 2021-05-11 urinalysis, [facility] Pending 00:00:00 dipstick [code = Group urinalysis, dipstick] Diagnostic Test 2021-05-11 HIV (1+2) Ab [facility] Pending 00:00:00 screen, serum [code Group = HIV (1+2) Ab screen, serum] Diagnostic Test 2021-05-11 RPR (rapid plasma [place] [facility] Pending 00:00:00 reagin), serum Group [code = RPR (rapid plasma reagin), serum] Diagnostic Test 2021-05-11 HBsAg (hepatitis B [facility] Medical Pending 00:00:00 surface Ag), serum Group [code = HBsAg (hepatitis B surface Ag), serum] Diagnostic Test 2021-05-11 CT + NG + TV, DNA, [facility] Medical Pending 00:00:00 urine/swab [code = Group CT + NG + TV, DNA, urine/swab] Diagnostic Test 2021-05-11 bacterial vaginosis [facility] Pending 00:00:00 panel, vaginal Group [code = bacterial vaginosis panel, vaginal] Encounters Start End Encounter Admission Attending Care Care Encounter Source Date/Time Date/Time Type Type Clinicians Facility Department ID 2021-06-16 2021-06-16 Letter JOSR Nuno [id number] Univers 00:00:00 00:00:00 (Out) Cheryl CLANCY [id number] it y of [facility] [id number] [place] as [id number] [facility] 019 [place] 2021-06-15 2021-06-15 Laboratory Only, Ang Db Test [facility] 1.2.8 [id number] Univers 09:21:19 09:31:19 Only Ronald Alannah [facility] [id number] ity of [place] [id number] [place] as Vikram?Blea [phone] [address] Office [facility] 2021-06-15 2021-06-15 Letter Ronald [facility] [id number] Univers 00:00:00 00:00:00 (Out) [facility] [id number] it y of [place] [id number] [place] as Vikram?Blea [id number] [address] Office [facility] 2021-05-11 2021-05-11 Outpatient White_Hina [facility] [id number] [place] 11:47:00 11:47:00 0729 [facility] 2021-05-11 2021-05-11 [facility] [place] - [id number] M atagor 00:00:00 00:00:00 Discovery rian Bess [facility]: [address] OBGYN [address], [place] [address] , Ph. [phone] 2020-09-13 2020-09-13 [facility] [id number] Univers 13:19:00 15:18:00 Gómezamalia Thurston [id number] i ty of [place] [id number] [place] [id number] [place] [id number] [place] 2020-09-13 2020-09-13 Emergency X DAVION [facility] ERT [id number] Univers 13:19:00 13:19:00 GÓMEZ cox [facility] 2020-08-31 2020-08-31 Outpatient G_Pappas [facility] [id number] [place] 02:20:00 02:20:00 0726 [facility] 2020-08-31 2020-08-31 Outpatient G_Pappas [facility] [id number] [place] 02:20:00 02:20:00 1118 [facility] 2019-04-27 2019-04-27 [place] - [id number] M atagor 00:00:00 00:00:00 Discovery rian Whitman MD: [address] [place] [phone] , Ph. [phone] 2019-04-15 2019-04-15 [place] - [id number] M at[place]or 00:00:00 00:00:00 Discovery rian Whitman MD: [address] [place] [address] , Ph. [phone] 2019-04-13 2019-04-13 [place] - [id number] M atagor 00:00:00 00:00:00 Discovery rian Whitman MD: [address] [place] [phone] , Ph. [phone] 2019-03-10 2019-03-10 [place] - [id number] M atagor 00:00:00 00:00:00 Discovery rian Whitman MD: [address] [place] [phone] , Ph. [phone] 2018-11-27 2018-11-27 [place] - [id number] M atagor 00:00:00 00:00:00 Discovery rian Whitman MD: [address] [place] [phone] , Ph. [phone] Results Test Description Test Time Test Comments Results Result Comments Source Urinalysis macro (dipstick) panel - Urine 2021-05-11 11:11:0 0 Test Item Value Reference Range Interpretation Comme nts Leukocytes (test code = Leukocytes) Negative Nitrite (test code = Nitrite) negative Urobilinogen (test code = Urobilinogen) .2 Protein (test code = Protein) Negative pH (test code = pH) 6.5 Blood (test code = Blood) Negative Specific [place] (test code = Specific [place]) 1.020 Ketone (test code = Ketone) Negative Bilirubin (test code = Bilirubin) Negative Glucose (test code = Glucose) Negative Appearance (test code = Appearance) Clear Color (test code = Color) Yellow [facility] [id number] 20:25:00 Test Item Value Reference Range Interpretation Comments TROPONIN I (test <0.012 See_Comment [Automated code = 6428478349) message] The system which generated this result transmitted reference range : <=0.034 ng/mL. The reference range was not used to interpr et this result as normal/abnormal . KHADIJAH (test code = Equal or Less than KHADIJAH) 0.034 ng/ml---Normal ?Note: Cardiac troponin begins to rise 3-4 hours after the onset of ischemia. Repeat in 4-6 hours if the sample was drawn within 3-4 hours of the onset of the symptom and found normal. Between 0.035 and 0.120 ng/mL--- Borderline. Questionable myocardial injury or necrosis ? ?Note: Serial measurement may be necessary to confirm or exclude the diagnosis of myocardial injury or necrosis; Clinical correlation (symptoms, EKGs, imaging studies, and others) required; Repeat in 4-6 hours if clinically indicated. ? Equal or Higher than 0.121 ng/mL---Abnormal. Myocardial Injury or Necrosis Likely ? Biotin has been reported to cause a negative bias, interpret results relative to patient's use of biotin. ? Lab Interpretation Normal (test code = 26055-1) [facility] 1 [id number] 20:19:55HISTORY: Chest pain. TECHNIQUE: Portable AP semierect view of the chest is obtained. FINDINGS: No acute pneumonia. No pneumothorax or pleural effusion orpulmonary congestion detected. Cardiac size is within normal limits. [place] of mild thoracolumbar scoliosis. CONCLUSIONS: No signs of acute cardiopulmonary disease.[facility], Radiant Results Inft User - 09/13/2020 2:21 PM CSTHISTORY: Chest pain.TECHNIQUE: Portable AP semierect view of the chest is obtained.FINDINGS: No acute pneumonia. No pneumothoraxor pleural effusion orpulmonary congestion detected. Cardiac size is within normal limits. [place] of mild thoracolumbar scoliosis.CONCLUSIONS: No signs of acute cardiopulmonary disease.[facility] (ID NOW RAPID TESTING)2020-09-13 20:16:00 Test Item Value Reference Range Interpretation Comments SARS-CoV-2 Rapid ID NOW Not Detected Not Detected (test code = 16512-9) KHADIJAH (test code = KHADIJAH) ID NOW COVID-19 Assay is an isothermal nucleic acid amplification test intended for the qualitative detection of nucleic acid from SARS-CoV-2 viral RNA in nasopharyngeal ([employer]) specimens. It is used under Emergency Use Authorization (EUA) by FDA. The limit of detection (LOD) of the assay is 125 Genome Equivalents/mL. A positive result is indicative of the presence of SARS-CoV-2 RNA. ?Clinical correlation with patient history and other diagnostic information is necessary to determine patient infection status. A negative (Not Detected) result does not preclude SARS-CoV-2 infection. In patients with clinical symptoms and other tests that are consistent with SARS-CoV-2 infection, negative results should be treated as presumptive negative and a new specimen should be tested with alternative PCR molecular test. Invalid: Please collect a new specimen for repeat patient testing if clinically indicated. Lab Interpretation Normal (test code = 38388-6) [facility] [place] Metabolic Panel (NA, K, CL, CO2, GLUCOSE, BUN, CREATININE, CA)2020-09-13 20:13:00 Test Item Value Reference Range Interpretation Comments NA (test code = 141 mmol/L 135-145 9344911706) K (test code = 3.4 mmol/L 3.5-5 L 2985586688) CL (test code = 102 mmol/L 98-108 1065212562) CO2 TOTAL (test code = 30 mmol/L 23-31 8253797963) AGAP (test code = 2-16 5767795006) BUN (test code = 13 mg/dL 7-23 9645571159) GLUCOSE (test code = 140 mg/dL 70-110 H 2214165902) CREATININE (test code = 0.59 mg/dL 0.5-1.04 7730124040) CALCIUM (test code = 9.2 mg/dL 8.6-10.6 9374904437) eGFR Calculation mL/min/1.73m2 (Non-) (test code = 8294829075) eGFR Calculation mL/min/1.73m2 () (test code = 6291619111) KHADIJAH (test code = KHADIJAH) Association of Glomerular Filtration Rate (GFR) and Staging of Kidney Disease* + --+ --+ ------+| GFR (mL/min/1.73 m2) ?| With Kidney Damage ?| ?Without Kidney Damage+ --------+ --------+ +| ?>90 ?| ?Stage one ?| ? Normal ?+ ---+ ---+ -------+| ?60-89 ?| ?Stage two ?| ? Decreased GFR ? + --+ --+ ------+| ?30-59 ?| ?Stage three ?| ? Stage three ? + --+ --+ ------+| ?15-29 ?| ?Stage four ? | ? Stage four ?+ ---+ ---+ -------+| ?<15 (or dialysis) ? ?| ?Stage five ? | ? Stage five ?+ ---+ ---+ -------+ *Each stage assumes the associated GFR level has been in effect for at least three months. ?Stages 1 to 5, with or without kidney disease, indicate chronic kidney disease. Notes: Determination of stages one and two (with eGFR >59mL/min/1.73 m2) requires estimation of kidney damage for at least three months as defined by structural or functional abnormalities of the kidney, manifested by either:Pathological abnormalities or Markers of kidney damage (including abnormalities in the composition of the blood or urine or abnormalities in imaging tests). Lab Interpretation Abnormal (test code = 53088-3) [facility] (ALB, T.PRO, BILI T, BU/BC, ALT, AST, ALK PHOS)2020-09-13 20:13:00 Test Item Value Reference Range Interpretation Comments TOTAL BILI (test code = 9862422235) 0.5 mg/dL 0.1-1.1 BILI UNCON (test code = 4736243832) 0.5 mg/dL 0.1-1.1 BILI CONJ (test code = 3612394642) 0.0 mg/dL 0-0.3 T PROTEIN (test code = 0661504272) 7.3 g/dL 6.3-8.2 ALBUMIN (test code = 1614887288) 4.4 g/dL 3.5-5 ALK PHOS (test code = 2206415844) 52 U/L 34-122 ALTv (test code = 1742-6) 14 U/L 5-35 AST(SGOT) (test code = 3803420184) 22 U/L 13-40 Lab Interpretation (test code = Normal 76176-6) [facility] HospitalLipase [id number] 20:13:00 Test Item Value Reference Range Interpretation Comments LIPASE (test code = 8553974176) 34 U/L 0-220 Lab Interpretation (test code = Normal 70134-3) [facility] HospitalUrinalysis2020-12-01 20:12:00 Test Item Value Reference Range Interpretation Comments APPEARANCE (test code = Hazy Clear A 8075555768) COLOR (test code = Yellow Yellow 1681996497) PH (test code = 4.8-8.0 6183568922) SP GRAVITY (test code = 1.003-1.030 3934110797) GLU U QUAL (test code = Normal Normal 4706316745) BLOOD (test code = 2+ Negative A 5369556883) KETONES (test code = Negative Negative 9696144690) PROTEIN (test code = Negative Negative 2887-8) UROBILIN (test code = Normal Normal 5224894431) BILIRUBIN (test code = Negative Negative 8351059465) NITRITE (test code = Negative Negative 2929464005) LEUK DOMINGO (test code = Negative Negative 7005654759) RBC/HPF (test code = See_Comment [Autom ated message] 3986718290) The system TwitChat generated this result transmitted ref erence range: 0 - 3 HP F. The reference range was not used to int erpret this result as normal/abnormal . WBC/HPF (test code = See_Comment [Autom ated message] 6606241447) The system TwitChat generated this result transmitted ref erence range: 0 - 5 HP F. The reference range was not used to int erpret this result as normal/abnormal . BACTERIA (test code = Few Negative A 8472776764) MUCOUS (test code = Moderate Negative LPF A 4078496258) SQ EPITH (test code = HPF 7450466547) HYAL CAST (test code = See_Comment [Aut omated message] 8157340133) The system [employer]itChat generated this result transmitted ref erence range: <=2 LPF. The reference range was not used to int erpret this result as normal/abnormal . Lab Interpretation (test Abnormal code = 80320-6) [facility] HospitalaPTT2020-12-01 20:11:00 Test Item Value Reference Range Interpretation Comments APTT Patient (test See_Comment [Automat ed code = 3173-2) message] The system which generated this result transmitted reference range : 23 - 38 Seconds . The reference range was not used to interpr et this result as normal/abnormal . KHADIJAH (test code = KHADIJAH) The [facility] patient population mean normal value for aPTT is 30 seconds. Lab Interpretation Normal (test code = 09588-5) [facility] / [facility] - DRUG SCREEN [id number] 20:11:00 Test Item Value Reference Range Interpretation Comments BENZO U (test code = Negative Negative 3395636282) CHRIS U (test code = Negative Negative 2647834660) AMPHET (test code = Negative Negative 9394937325) THC (test code = Negative Negative 0140595495) METHADONE (test code = Negative Negative 9857850322) Meth U (test code = Negative Negative 9777633849) OPIATES (test code = Negative Negative 2651834612) Cocaine Metabolite (test Negative Negative code = 6094787172) PROPOXY (test code = Negative Negative 3777318398) Tric U (test code = Negative Negative 8423600875) PCP (test code = Negative Negative 8321985895) OXYCOD (test code = Negative Negative 4890856657) KHADIJAH (test code = KHADIJAH) Urine Drug Cutoff Ranges Benzodiazepines: ? ? 150 ng/mLBarbiturates: ?200 ng/mLAmphetamine: ? 500 ng/mLCannabinoids: ?50 ?ng/mLMethadone: ? 200 ng/mLMethamphetamine: ? ? 500 ng/mL Opiates: ? 100 ng/mL or 2000 ng/mLCocaine: ? 150 ng/mLPropoxyphene: ?300 ng/mLTricyclics: ?300 ng/mLOxycodone: ? 100 ng/mLPCP: ? 25 ?ng/mL The results are to be used only for medical (i.e., treatment) purposes. Unconfirmed screening results must not be used for non-medical purposes (e.g., employment testing, legal testing). Lab Interpretation (test Normal code = 29268-3) [facility] Hospital[facility]th[facility] Time (PT) / [id number] 20:09:00 Test Item Value Reference Range Interpretation Comments PROTIME PATIENT (test See_Comment [Auto mated message] code = 5964-2) The system wh ich generated this result transmitted ref erence range: 12.0 - 1 4.7 Seconds. The re ference range was not u sed to interpret this result as normal/abnor mal. INR (test code = 6301-6) Nor mal INR <1.1; Warfarin Therap eutic range 2.0 to 3. 0 or 2.5 to 3.5, dep ending upon the indica tions. Lab Interpretation (test Normal code = 03423-9) [facility] HospitalCB with [id number] 20:00:00 Test Item Value Reference Range Interpretation Comments WBC (test code = See_Comment [Automated 0390-2) message] The sy stem which generated this result transmitted reference range : 4.30 - 11.10 10*3/?L. The reference range was not used to interpret this result as normal/abnormal . RBC (test code = See_Comment [Automated 449-8) message] The sy stem which generated this result transmitted reference range : 3.93 - 5.25 10*6/?L. The reference range was not used to interpret this result as normal/abnormal . HGB (test code = 13.4 g/dL 11.6-15 718-7) HCT (test code = 39.0 % 35.7-45.2 4544-3) MCV (test code = 94.2 fL 80.6-95.5 787-2) MCH (test code = 32.4 pg 25.9-32.8 785-6) MCHC (test code = 34.4 g/dL 31.6-35.1 786-4) RDW-SD (test code = 39.3 fL 39-49.9 13344-3) RDW-CV (test code = 11.4 % 12-15.5 L 788-0) PLT (test code = See_Comment [Automated 777-3) message] The sy stem which generated this result transmitted reference range : 166 - 358 10*3/ ?L. The reference r mirna was not used to interpret this result as normal/abnormal . MPV (test code = 9.8 fL 9.5-12.9 06044-2) NRBC/100 WBC (test See_Comment [Automat ed code = 8932203043) message] The system which generated this result transmitted reference range : 0.0 - 10.0 /100 WBCs. The refer ence range was not u sed to interpret th is result as normal/abnormal . NRBC x10^3 (test code <0.01 See_Comment [Auto mated = 0928505886) message] The s ystem which generated this result transmitted reference range : 10*3/?L. The reference range was not used to interpret this result as normal/abnormal . GRAN MAT (NEUT) % 67.0 % (test code = 770-8) IMM GRAN % (test code 0.40 % = 6538800159) LYMPH % (test code = 23.1 % 736-9) MONO % (test code = 8.4 % 5905-5) EOS % (test code = 0.7 % 713-8) BASO % (test code = 0.4 % 706-2) GRAN MAT x10^3(ANC) 3.69 10*3/uL 1.88-7.09 (test code = 1337367582) IMM GRAN x10^3 (test <0.03 0-0.06 code = 6159749632) LYMPH x10^3 (test code 1.27 10*3/uL 1.32-3.29 L = 731-0) MONO x10^3 (test code 0.46 10*3/uL 0.33-0.92 = 742-7) EOS x10^3 (test code = 0.04 10*3/uL 0.03-0.39 711-2) BASO x10^3 (test code <0.03 0.01-0.07 = 704-7) Lab Interpretation Abnormal (test code = 80772-0) [facility]PO[facility] [id number] 19:45:00 Test Item Value Reference Range Interpretation Comments POCT PREG (test code = 1605) negative On board controls acceptable with present C Line (test code = 3574) POCT PREG LOT # (test code = 3575) [id number] POCT PREG TEST DATE (test 2022-02-10 code = 3576) Lab Interpretation (test code = Normal 91410-8) [facility] HospitalUrinalysis macro (dipstick) panel - Urine 2019-04-27 10:20:03 Test Item Value Reference Range Interpretation Comments Leukocytes (test code = Leukocytes) Negative Nitrite (test code = Nitrite) negative Urobilinogen (test code = .2 Urobilinogen) Protein (test code = Protein) Trace pH (test code = pH) 5.5 Blood (test code = Blood) Negative Specific [place]om[place] (test code = 1.030 Specific Flomaton) Ketone (test code = Ketone) Negative Bilirubin (test code = Bilirubin) Negative Glucose (test code = Glucose) Negative Appearance (test code = Appearance) Clear Color (test code = Color) Yellow [facility] macro (dipstick) panel - [id number] 10:35:45 Test Item Value Reference Range Interpretation Comments Leukocytes (test code = Leukocytes) Negative Nitrite (test code = Nitrite) negative Urobilinogen (test code = .2 Urobilinogen) Protein (test code = Protein) Trace pH (test code = pH) 7.0 Blood (test code = Blood) Large Specific [place] (test code = 1.030 Specific [place]om[place]) Ketone (test code = Ketone) Negative Bilirubin (test code = Bilirubin) Negative Glucose (test code = Glucose) Negative Appearance (test code = Appearance) Clear Color (test code = Color) [place] [facility] macro (dipstick) panel - [id number] 10:35:45 Test Item Value Reference Range Interpretation Comments Leukocytes (test code = Leukocytes) Negative Nitrite (test code = Nitrite) negative Urobilinogen (test code = .2 Urobilinogen) Protein (test code = Protein) Trace pH (test code = pH) 7.0 Blood (test code = Blood) Large Specific [place]om[place] (test code = 1.030 Specific [place]om[place]) Ketone (test code = Ketone) Negative Bilirubin (test code = Bilirubin) Negative Glucose (test code = Glucose) Negative Appearance (test code = Appearance) Clear Color (test code = Color) [facility], [id number] 10:18:02 Test Item Value Reference Range Interpretation Comments Test (test code = negative Test) [facility], [id number] 10:18:02 Test Item Value Reference Range Interpretation Comments Test (test code = negative Test) [facility]CB W Auto Differential panel - [id number] 10:07:00 Test Item Value Reference Range Interpretation Comments white blood count (test code = 6.4 K/uL 4.0-11.5 white blood count) red blood count (test code = red 4.42 M/uL 3.80-5.20 blood count) hemoglobin (test code = 13.8 g/dL 10.5-15.7 hemoglobin) hematocrit (test code = 43.3 % 34.0-50.0 hematocrit) Erythrocyte mean corpuscular 98.0 fL 86-100 volume [Entitic volume] (test code = 10679-7) Erythrocyte mean corpuscular 31.2 pg 26.2-33.4 hemoglobin [Entitic mass] (test code = 31512-9) mean corpuscular HGB conc (test 31.9 g/dL 30-34 code = mean corpuscular HGB conc) red cell distribution width (test 11.9 % 12.0-15.5 L code = red cell distribution width) platelet count (test code = 276 K/uL 165-450 platelet count) mean platelet volume (test code = 9.1 fL 9.4-12.6 L mean platelet volume) Neutrophils.segmented/100 63.4 % 44.4-80.1 leukocytes in Blood (test code = 79732-9) Ig% (test code = Ig%) 0.2 % 0.0-0.4 lymphocyte% (test code = 25.9 % 10.0-50.0 lymphocyte%) Monocytes/100 leukocytes in Blood 9.0 % 3.6-12.0 by Automated count (test code = 5905-5) Eosinophils/100 leukocytes in 1.2 % 0.0-5.4 Blood by Automated count (test code = 713-8) Basophils/100 leukocytes in 0.3 % 0.1-1.2 Unspecified specimen (test code = 04448-2) absolute neutrophil count (test 4.06 K/uL 1.56-6.13 code = absolute neutrophil count) Ig# (test code = Ig#) 0.0 K/uL 0.0-0.03 Lymphocytes [#/volume] in 1.7 K/uL 1.18-3.74 Unspecified specimen by Automated count (test code = 09148-6) mono # (test code = mono #) 0.58 K/uL 0.24-0.86 eos # (test code = eos #) 0.08 K/uL 0.04-0.36 basophil # (test code = basophil 0.02 K/uL 0.01-0.08 #) NRBC% (test code = NRBC%) 0 /100 WBC 0-0.2 NRBC# (test code = NRBC#) 0 K/uL [facility]pregnancy test, [id number] 15:26:00 Test Item Value Reference Range Interpretation Comments Test (test code = negative Test) [facility] HospitalUrinalysis macro (dipstick) panel - [id number] 15:26:00 Test Item Value Reference Range Interpretation Comments Leukocytes (test code = Leukocytes) Trace Nitrite (test code = Nitrite) negative Urobilinogen (test code = .2 Urobilinogen) Protein (test code = Protein) Negative pH (test code = pH) 6.5 Blood (test code = Blood) Negative Specific [place]om[place] (test code = 1.030 Specific [place]om[place]) Ketone (test code = Ketone) Negative Bilirubin (test code = Bilirubin) Negative Glucose (test code = Glucose) Negative Appearance (test code = Appearance) Clear Color (test code = Color) Yellow [facility] HospitalChoriogonadotropin.beta subunit [Units/volume] in Serum or [id number] 01:50:00 Test Item Value Reference Range Interpretation Comments HCG quantitative (test code = HCG 0.1 mIU/mL 0-5 quantitative) [facility]"
[2021-11-07 08:57] LABS: Urine Blood Trace-intact (Negative); Urine Glucose Negative (Negative); Urine Protein Negative (Negative); Urine Specific Gravity 1.025 (1.005-1.030); Urine pH 5.5 (5.0-7.0)
[2021-11-07 09:19] LABS: Urine Bacteria >50 /HPF (<20); Urine Mucus 2+ /HPF (NONE SEEN); Urine RBC <5 /HPF (NONE SEEN)
[2021-11-07 09:20] LABS: Urine Specific Gravity/Preg 1.025 (1.005-1.030)
[2021-11-07] MEDS ORDERED: ONDANSETRON 4 MG (ODT) TAB ONE (09:24)
[2021-11-07] MEDS ORDERED: ACETAMINOPHEN 500 MG TAB ONE (09:24)
--- NOTE | 2021-11-07 09:28 | ER ---
Nurse's Notes [facility] Name: Josee Anthony Age: 31 yrs Sex: Female : 1990 Arrival Date: 11/07/2021 Time: 08:38 Bed 7 Private MD: Diagnosis: UTI/ Urinary tract infection, site not specified;Nausea Presentation: 11/07 08:47 Chief complaint: Patient states: Dysuria, with L sided abd/back pain. State she had a ll1 abscess on her L kidney about 2 months ago that she was hospitalized for. States it feels similar, + fever at home. Coronavirus screen: Vaccine status: Patient reports being unvaccinated. Client denies travel out of the [place] in the last 14 days. At this time, the client does not indicate any symptoms associated with coronavirus-19. Ebola Screen: Patient denies travel to an Ebola-affected area in the 21 days before illness onset. Initial Sepsis Screen: Does the patient meet any 2 criteria? No. Patient's initial sepsis screen is negative. Does the patient have a suspected source of infection? Yes: Dysuria/Frequency/Urgency/UTI. Risk Assessment: Do you want to hurt yourself or someone else? Patient reports no desire to harm self or others. Onset of symptoms is unknown. 08:47 Method Of Arrival: Ambulatory ll1 08:47 Acuity: ROBERT 3 ll1 Triage Assessment: 08:47 General: Appears uncomfortable, Behavior is calm, cooperative, appropriate for age. ll1 Pain: Complains of pain in left mid back Quality of pain is described as aching. : Reports burning with urination. 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 - Social history:: Smoking status: Patient reports the use of cigarette tobacco products, smokes one-half pack cigarettes per day. Screenin:48 Abuse screen: Denies threats or abuse. Nutritional screening: No deficits noted. [facility] Tuberculosis screening: No symptoms or risk factors identified. Fall Risk None identified. Assessment: 08:47 General: Appears in no apparent distress. Behavior is calm, cooperative, Reports. Pain: 6 Complains of pain in left lower quadrant Pain radiates to left mid back Pain currently is 4 out of 10 on a pain scale. Quality of pain is described as aching, Pain began 1 day ago. Is continuous. Vital Signs: 08:47 Temp 97.2; Weight 65.77 kg; Height 5 ft. 2 in. (157.48 cm); Pain 4/10; ll1 08:49 BP 128 / 93; Pulse 82; Resp 17; Pulse Ox 100% ; jh6 08:47 Body Mass Index 26.52 (65.77 kg, 157.48 cm) 1 ED Course: 08:38 Patient arrived in ED. mr 08:46 Naveen Fuentes PA is PHCP. cp 08:46 Mary Benjamin MD is Attending Physician. cp 08:46 Arm band placed on Patient placed in an exam room, on a stretcher. 1 08:47 Rocio Kaur, CAMILA is Primary Nurse. 6 08:48 Triage completed. 1 08:48 Urine collected: clean catch specimen, clear. 6 09:00 Bed in low position. 6 09:42 No provider procedures requiring assistance completed. Patient did not have IV access [facility] during this emergency room visit. Administered Medications: 09:15 Drug: Ondansetron 4 mg Route: PO; 6 09:42 Follow up: Response: No adverse reaction 6 09:20 Drug: Tylenol 1000 mg Route: PO; 6 09:42 Follow up: Response: No adverse reaction [facility] Outcome: 09:27 Discharge ordered by . cp 09:42 Discharged to home ambulatory. 6 09:42 Condition: good 09:42 Discharge instructions given to patient, Instructed on discharge instructions, Demonstrated understanding of instructions, follow-up care, medications, Prescriptions given X 2. 09:44 Patient left the ED. [facility] Signatures: Ramy Sherin mr Naveen Fuentes PA PA cp Lewis, Lynsay, RN RN [facility] Rocio Kaur RN RN [facility]
--- NOTE | 2021-11-07 09:28 | EDPHYS ---
Physician Documentation [facility] Name: Josee Anthony Age: 31 yrs Sex: Female : 1990 Arrival Date: 11/07/2021 Time: 08:38 Bed 7 Private MD: ED Physician Mary Benjamin HPI: 11/07 09:00 This 31 yrs old Female presents to ER via Ambulatory with complaints of Urinary Problem.cp 09:00 The patient presents with urinary symptoms, dysuria. cp 09:00 Onset: The symptoms/episode began/occurred yesterday. cp 09:00 Associated signs and symptoms: Pertinent positives: dysuria, nausea, flank pain, cp Pertinent negatives: diarrhea, fever, vomiting. Severity of symptoms: in the emergency department the symptoms are unchanged, despite home interventions. 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 - Social history:: Smoking status: Patient reports the use of cigarette tobacco products, smokes one-half pack cigarettes per day. ROS: 09:05 Constitutional: Negative for body aches, chills, fever, poor PO intake. cp 09:05 Eyes: Negative for injury, pain, redness, and discharge. cp 09:05 ENT: Negative for ear pain, sore throat, difficulty swallowing, difficulty handling secretions. 09:05 Respiratory: Negative for cough, shortness of breath, wheezing. 09:05 Abdomen/GI: Positive for nausea, Negative for vomiting, diarrhea, constipation. 09:05 Back: Positive for flank pain. 09:05 : Positive for burning with urination. 09:05 Neuro: Negative for altered mental status, headache, weakness. 09:05 All other systems are negative. Exam: 09:10 Constitutional: The patient appears in no acute distress, alert, awake, comfortable, cp non-toxic, well developed, well nourished. 09:10 Head/Face: Normocephalic, atraumatic. cp 09:10 Eyes: Periorbital structures: appear normal, Conjunctiva: normal, no exudate, no injection, Lids and lashes: appear normal, bilaterally. 09:10 Cardiovascular: Rate: normal. 09:10 Respiratory: the patient does not display signs of respiratory distress, Respirations: normal, no use of accessory muscles, no retractions, labored breathing, is not present. 09:10 Back: CVA tenderness, is absent. Vital Signs: 08:47 Temp 97.2; Weight 65.77 kg; Height 5 ft. 2 in. (157.48 cm); Pain 4/10; ll1 08:49 BP 128 / 93; Pulse 82; Resp 17; Pulse Ox 100% ; jh6 08:47 Body Mass Index 26.52 (65.77 kg, 157.48 cm) ll1 MDM: 08:48 Patient medically screened. cp 09:00 Differential diagnosis: kidney stone, pelvic inflammatory disease, urinary tract cp infection, vaginosis. 09:26 Data reviewed: vital signs, nurses notes, lab test result(s), and as a result, I will cp discharge patient. 09:26 Counseling: I had a detailed discussion with the patient and/or guardian regarding: the cp historical points, exam findings, and any diagnostic results supporting the discharge/admit diagnosis, lab results, to return to the emergency department if symptoms worsen or persist or if there are any questions or concerns that arise at home. 11/07 08:48 Order name: Urine Microscopic Only; Complete Time: 09:25 cp 11/07 09:26 Interpretation: Normal except: UBACT >50; SQEPI 5-10. cp 11/07 08:58 Order name: Urine Dipstick-Ancillary; Complete Time: 09:07 EDMS 11/07 09:07 Interpretation: Normal except: UBLD Trace-intact. cp 11/07 09:01 Order name: Urine --Ancillary (enter results); Complete Time: 09:25 bd 11/07 09:20 Order name: Urine Culture EDWI 11/07 08:48 Order name: Urine Dipstick-Ancillary (obtain specimen); Complete Time: 09:06 cp 11/07 08:48 Order name: Urine Test (obtain specimen); Complete Time: 09:06 cp Administered Medications: 09:15 Drug: Ondansetron 4 mg Route: PO; 6 09:42 Follow up: Response: No adverse reaction [facility] 09:20 Drug: Tylenol 1000 mg Route: PO; jh6 09:42 Follow up: Response: No adverse reaction jh6 Disposition: 11/08 04:36 Co-signature as Attending Physician, Mary Benjamin MD I agree with the assessment and sp3 plan of care. Disposition Summary: 11/07/21 09:27 Discharge Ordered Location: Home cp Problem: new cp Symptoms: have improved cp Condition: Stable cp Diagnosis - UTI/ Urinary tract infection, site not specified cp - Nausea cp Followup: cp - With: Private Physician - When: 2 - 3 days - Reason: Worsening of condition Discharge Instructions: - Discharge Summary Sheet cp - Nausea, Adult cp - Urinary Tract Infection, Adult cp Forms: - Medication Reconciliation Form cp - Thank You Letter cp - Antibiotic Education cp - Prescription Opioid Use cp Prescriptions: - Zofran 4 mg Oral Tablet - take 1 tablet by ORAL route every 12 hours As needed; 20 tablet; Refills: 0, cp Product Selection Permitted - Bactrim DS 800-160 mg Oral Tablet - take 1 tablet by ORAL route every 12 hours for 7 days; 14 tablet; Refills: 0, cp Product Selection Permitted Signatures: Dispatcher [employer] EDNaveen Turner PA PA cp Neri Menon, RN RN ll1 Mary Benjamin MD MD sp3 Rocio Kaur RN RN jh6
[2021-11-07 09:51] VITALS: TEMP 97.2
[2021-11-07 09:53] VITALS: BP 128/93; O2SAT 100
== END 2021-11-07 09:44 | disposition home or self-care (01) ==
LOC: ER 08:34
DX: N39.0 Urinary tract infection, site not specified (principal); F17.210 Nicotine dependence, cigarettes, uncomplicated
CPT/HCPCS: 81003; 81015; 81025; 87086; 87088; 99283

== ENCOUNTER 2022-06-01 14:57 | Emergency (ER) | payer OTHER ==
--- OUTSIDE RECORDS SUMMARY | 2022-06-01 15:02 | XMS REPORT | Continuity of Care Document ---
:1990 Author Organization [facility] Address [address] [place] [address] Dr. [address]. [address] [place] [address] Care Team Providers Name Role Phone Pcp, Patient Does Not Have A Primary Care Physician [phone] Erica Guo RN Attending Clinician Unavailable Only, Ang Db Test Attending Clinician Unavailable Tonja Craig MD Attending Clinician TONJA CRAIG Attending Clinician Unavailable Doctor Unassigned, [place] Attending Clinician Unavailable Cheryl Nuno RN Attending Clinician Unavailable Alannah Novak Attending Clinician White_M Attending Clinician Unavailable Gómez Sanford MD Attending Clinician GÓMEZ SANFORD Attending Clinician Unavailable Cresencio_Papflower Attending Clinician Unavailable White_M Admitting Clinician Unavailable Cresencio_Antonette Admitting Clinician Unavailable Payers Payer Name Policy Type Policy Number Effective Date Expiration Date [facility] [id number] 2013 CHOICE (MEDICAID 00:00:00 REPLACEMENT - HMO) Problems Condition Condition Condition Status Onset Resolution Last Treating Co mments Source Name Details Category Date Date Treatment Clinician Date 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 3-04 da 00:00: Medical 00 Group Dysmenorrh Dysmenorrh Problem Active 2017-0 M at[place]or ea ea 2-23 da 00:00: Medical 00 Group Menorrhagi Menorrhagi Problem Active 2018-0 M at[place] a a 2-23 da 00:00: Medical 00 Group Sterilizat Sterilizat Problem Active 2018-0 M at[place] ion ion 2-23 da requested Requested 00:00: Medi corona 00 Group No known No known Disease Unive rs active active ity of problems problems [facility] [place] [facility] Allergies, Adverse Reactions, Alerts Allergy Allergy Status Severity Reaction(s) Onset Inactive Treating Comm ents Source Name Type Date Date Clinician Mushroom Allergy Active Moderate Hives [place] to 7-29 da substanc 00:00: Medical e 00 Group NO KNOWN Drug Active Univers ALLERGIE Class ity of S [facility] Social History Social Habit Start Date Stop Date Quantity Comments Source Exposure to Not sure [facility] SARS-CoV-2 (event) Medica l Branch Sex Assigned At [birth year] [place] [facility] 00:00:00 00:00:00 [facility] Branch Smoking Status Start Date Stop Date Source Light Tobacco Smoker Sahra Santamaria edical Group Unknown if ever smoked [facility] Medications Ordered Filled Start Stop Current Ordering Indication Dosage Frequency Signature Comments Components Source Medication Medication Date Date Medication? Clinician (SIG) Name Name maalox:diph 2019- 2020- No 15mL 15 mL, Uni vers enhydrAMINE 2-09-13 Oral, ity of :lidocaine 20:45: 19:45 ONCE, 1 [place] as 2 % viscous 00 :00 dose, Tue Med ical 1:1:1 09/13/20 at [place] ([facility] 1445, [facility]) Routine oral suspension 15 mL sucralfate 2019- Yes [id number] 1g Take 1 U nivers 1 gram 2-01 tablet by ity of tablet 00:00: mouth [place] 00 before Medical meals and Branch at bedtime. ondansetron 2019- Yes [id number] 4mg Take 1 Univers 4 mg 2-01 tablet by ity of disintegrat 00:00: mouth [place] ing tablet 00 every 4 Medica l (four) Branch hours as needed for Nausea and Vomiting (N/V). ibuprofen 2019- Yes [id number] 600mg Take 1 U nivers 600 mg 2-01 tablet by ity of tablet 00:00: mouth [place] 00 every 6 Medical (six) Branch hours as needed for Pain (scale 4-6). sucralfate 2019- Yes [id number] 1g Take 1 U nivers 1 gram 2-01 tablet by ity of tablet 00:00: mouth [place] 00 before Medical meals and Branch at bedtime. ondansetron 2019- Yes [id number] 4mg Take 1 Univers 4 mg 2-01 tablet by ity of disintegrat 00:00: mouth [place] ing tablet 00 every 4 Medica l (four) Branch hours as needed for Nausea and Vomiting (N/V). ibuprofen 2020-1 Yes [id number] 600mg Take 1 U nivers 600 mg 2-01 tablet by ity of tablet 00:00: mouth [place] 00 every 6 Medical (six) Branch hours as needed for Pain (scale 4-6). sucralfate 2020-1 Yes [id number] 1g Take 1 U nivers 1 gram 2-01 tablet by ity of tablet 00:00: mouth [place] 00 before Medical meals and Branch at bedtime. ondansetron 2020-1 Yes [id number] 4mg Take 1 Univers 4 mg 2-01 tablet by ity of disintegrat 00:00: mouth [place] ing tablet 00 every 4 Medica l (four) Branch hours as needed for Nausea and Vomiting (N/V). ibuprofen 2020-1 Yes [id number] 600mg Take 1 U nivers 600 mg 2-01 tablet by ity of tablet 00:00: mouth [place] 00 every 6 Medical (six) Branch hours as needed for Pain (scale 4-6). sucralfate 2020-1 Yes [id number] 1g Take 1 U nivers 1 gram 2-01 tablet by ity of tablet 00:00: mouth [place] 00 before Medical meals and Branch at bedtime. sucralfate 2020-1 Yes [id number] 1g Take 1 U nivers 1 gram 2-01 tablet by ity of tablet 00:00: mouth [place] 00 before Medical meals and Branch at bedtime. ondansetron 2020-1 Yes [id number] 4mg Take 1 Univers 4 mg 2-01 tablet by ity of disintegrat 00:00: mouth [place] ing tablet 00 every 4 Medica l (four) Branch hours as needed for Nausea and Vomiting (N/V). ibuprofen 2020-1 Yes [id number] 600mg Take 1 U nivers 600 mg 2-01 tablet by ity of tablet 00:00: mouth [place] 00 every 6 Medical (six) Branch hours as needed for Pain (scale 4-6). sucralfate 2020-1 Yes [id number] 1g Take 1 U nivers 1 gram 2-01 tablet by ity of tablet 00:00: mouth [place] 00 before Medical meals and Branch at bedtime. ondansetron 2020-1 Yes [id number] 4mg Take 1 Univers 4 mg 2-01 tablet by ity of disintegrat 00:00: mouth [place] ing tablet 00 every 4 Medica l (four) Branch hours as needed for Nausea and Vomiting (N/V). ondansetron 2020-1 Yes [id number] 4mg Take 1 Univers 4 mg 2-01 tablet by ity of disintegrat 00:00: mouth [place] ing tablet 00 every 4 Medica l (four) Branch hours as needed for Nausea and Vomiting (N/V). ibuprofen 2020- Yes [id number] 600mg Take 1 U nivers 600 mg 2-01 tablet by ity of tablet 00:00: mouth [place] 00 every 6 Medical (six) Branch hours as needed for Pain (scale 4-6). sucralfate 2020- Yes [id number] 1g Take 1 U nivers 1 gram 2-01 tablet by ity of tablet 00:00: mouth [place] 00 before Medical meals and Branch at bedtime. ibuprofen 2019-1 Yes [id number] 600mg Take 1 U nivers 600 mg 2-01 tablet by ity of tablet 00:00: mouth [place] 00 every 6 Medical (six) Branch hours as needed for Pain (scale 4-6). ondansetron 2020-1 Yes [id number] 4mg Take 1 Univers 4 mg 2-01 tablet by ity of disintegrat 00:00: mouth [place] ing tablet 00 every 4 Medica l (four) Branch hours as needed for Nausea and Vomiting (N/V). ibuprofen 2019-1 Yes [id number] 600mg Take 1 U nivers 600 mg 2-01 tablet by ity of tablet 00:00: mouth [place] 00 every 6 Medical (six) Branch hours as needed for Pain (scale 4-6). sucralfate 2020-1 Yes [id number] 1g Take 1 U nivers 1 gram 2-01 tablet by ity of tablet 00:00: mouth [place] 00 before Medical meals and Branch at bedtime. ondansetron 2020-1 Yes [id number] 4mg Take 1 Univers 4 mg 2-01 tablet by ity of disintegrat 00:00: mouth [place] ing tablet 00 every 4 Medica l (four) Branch hours as needed for Nausea and Vomiting (N/V). ibuprofen 2020-1 Yes [id number] 600mg Take 1 U nivers 600 mg [...] Immunizations Ordered Filled Immunization Date Status Comments [facility] e Immunization Name Name Ruben Ascencio, Precious or Riani 2001-10-30 Completed Unive rsity of Dosage 00:00:00 [facility] [place] [facility] Varicella 2001-10-30 Completed University of (varivax)(chicken 00:00:00 [facility] edical pox) Branch Varicella 2001-10-30 Completed University of (varivax)(chicken 00:00:00 [facility] edical pox) Branch Hep B, Adol or Pedi 2001-10-30 Completed Unive rsity of Dosage 00:00:00 [facility] [place] [facility] Varicella 2001-10-30 Completed University of (varivax)(chicken 00:00:00 [facility] edical pox) Branch Hep B, Adol or Pedi 2001-10-30 Completed Unive rsity of Dosage 00:00:00 [facility] [place] [facility] Varicella 2001-10-30 Completed University of (varivax)(chicken 00:00:00 [facility] edical pox) Branch Hep B, Adalmita or Pedi 2001-10-30 Completed Unive rsity of Dosage 00:00:00 [facility] [place] [facility] Varicella 2001-10-30 Completed University of (varivax)(chicken 00:00:00 [facility] edical pox) Branch Hep B, Adalmita or Pedi 2001-10-30 Completed Unive rsity of Dosage 00:00:00 [facility] [place] [facility] Varicella 2001-10-30 Completed University of (varivax)(chicken 00:00:00 [facility] edical pox) Branch Hep B, Adol or Pedi 2001-10-30 Completed Unive rsity of Dosage 00:00:00 [facility] [place] [facility] Varicella 2001-10-30 Completed University of (varivax)(chicken 00:00:00 [place] [facility] pox) Branch Hep B, Adol or Pedi 2001-10-30 Completed Unive rsity of Dosage 00:00:00 [facility] [place] [facility] Varicella 2001-10-30 Completed [facility] (varivax)(chicken 00:00:00 [place] M edical pox) Branch Hep B, Adol or Pedi 2001-10-30 Completed Unive rsity of Dosage 00:00:00 [facility] [place] [facility] Vital Signs Vital Name Observation Time Observation Value Comments Source BP Diastolic 2021-05-11 00:00:00 72 mm[Hg] [facility] Height 2021-05-11 00:00:00 62 [in_i] [facility] BMI (Body Mass 2021-05-11 00:00:00 22.9 kg/m2 [facility]) Group BP Systolic 2021-05-11 00:00:00 120 mm[Hg] [facility] Body Weight 2021-05-11 00:00:00 125 [facility] Systolic blood 2020-09-13 21:01:00 109 mm[Hg] Univer sity of pressure [facility] [place] [facility] Diastolic blood 2020-09-13 21:01:00 62 mm[Hg] Unive rsity of pressure [facility] Heart rate 2020-09-13 21:01:00 80 /min [facility] Body temperature 2020-09-13 21:01:00 37.17 [facility] Respiratory rate 2020-09-13 21:01:00 16 /[facility] Oxygen saturation in 2020-09-13 21:01:00 100 /min [facility] Arterial blood by [facility] Pulse oximetry Branch Body weight 2020-09-13 19:17:00 60.328 kg [facility] BP Diastolic 2019-04-27 00:00:00 80 mm[Hg] [facility] Height 2019-04-27 00:00:00 62 [in_i] [facility] BMI (Body Mass 2019-04-27 00:00:00 22.2 kg/m2 [facility]) Group BP Systolic 2019-04-27 00:00:00 124 mm[Hg] [facility] Body Weight 2019-04-27 00:00:00 121.6 [lb_av] [facility] BP Diastolic 2019-04-13 00:00:00 82 mm[Hg] [facility] Height 2019-04-13 00:00:00 62 [in_i] [facility] BMI (Body Mass 2019-04-13 00:00:00 22.1 kg/m2 [facility]) Group BP Systolic 2019-04-13 00:00:00 119 mm[Hg] [facility] Body Weight 2019-04-13 00:00:00 120.9 [lb_av] [facility] BP Diastolic 2019-03-10 00:00:00 82 mm[Hg] [facility] Height 2019-03-10 00:00:00 62 [in_i] [facility] BMI (Body Mass 2019-03-10 00:00:00 22.1 kg/m2 [facility]) Group BP Systolic 2019-03-10 00:00:00 116 mm[Hg] [facility] Body Weight 2019-03-10 00:00:00 120.8 [lb_av] [facility] BP Diastolic 2018-11-27 00:00:00 74 mm[Hg] [facility] Height 2018-11-27 00:00:00 62 [in_i] [facility] BMI (Body Mass 2018-11-27 00:00:00 21.6 kg/m2 [facility] Index) Group BP Systolic 2018-11-27 00:00:00 118 mm[Hg] [facility] Body Weight 2018-11-27 00:00:00 118 [lb_av] [facility] Procedures Procedure Date / Time Performing Clinician Source Performed ASSIGNMENT OF BENEFITS 2021-11-08 15:33:57 Doctor Unassigned, No [facility] Branch XR CHEST 1 VW 2020-09-13 20:19:00 Davion Gómez [facility] LIPASE 2020-09-13 19:49:00 Davion [facility] TROPONIN I 2020-09-13 19:49:00 Gómez Sanford [facility] HEPATIC FUNCTION PANEL 2020-09-13 19:49:00 Gómez Sanford [facility] ([id number]) (ALB,T.PRO,BILI Medical Branch T,BU/BC,ALT,AST,ALK PHOS) BASIC METABOLIC PANEL 2020-09-13 19:49:00 Gómez Sanford [facility] (NA, K, CL, CO2, Medical Branch GLUCOSE, BUN, CREATININE, CA) CBC WITH DIFF 2020-09-13 19:49:00 Gómez Sanford [facility] PROTHROMBIN TIME / INR 2020-09-13 19:49:00 Gómez Sanford [facility] ACTIVATED PARTIAL 2020-09-13 19:49:00 Gómez Sanford [facility] THRMPLAS LENA [facility] URINALYSIS 2020-09-13 19:49:00 Davion Gómez [facility] ADC / LCC - DRUG SCREEN 2020-09-13 19:49:00 Gómez Sanford [facility] TRIAGE Medical Branch COVID-19 (ID NOW RAPID 2020-09-13 19:49:00 Gómez Sanford [facility] TESTING) [facility] Branch POCT TEST 2020-09-13 19:45:00 Gómez Sanford [facility] NOTICE OF PRIVACY 2020-09-13 19:03:39 Doctor Unassigned, No [facility] PRACTICES Name [facility] CONSENT/REFUSAL FOR 2020-09-13 19:02:47 Doctor Unassigned[facility] No [facility]AT[facility] Name [facility] Tubal Ligation (Surg) 2019-04-15 00:00:00 [facility] Caesarean Section 2013-11-27 00:00:00 [facility] Caesarean Section 2009-04-11 00:00:00 [facility] Caesarean Section 2008-01-30 00:00:00 [facility] Plan of Care Planned Activity Planned Date Details Comments Source Diagnostic Test 2021-05-11 urinalysis, [facility] Pending 00:00:00 dipstick [code = Group urinalysis, dipstick] Diagnostic Test 2021-05-11 HIV (1+2) Ab [facility] Pending 00:00:00 screen, serum [code Group = HIV (1+2) Ab screen, serum] Diagnostic Test 2021-05-11 RPR (rapid plasma [facility] Pending 00:00:00 reagin), serum Group [code = RPR (rapid plasma reagin), serum] Diagnostic Test 2021-05-11 HBsAg (hepatitis B [facility] Pending 00:00:00 surface Ag), serum Group [code = HBsAg (hepatitis B surface Ag), serum] Diagnostic Test 2021-05-11 CT + NG + TV, DNA, [facility] Pending 00:00:00 urine/swab [code = Group CT + NG + TV, DNA, urine/swab] Diagnostic Test 2021-05-11 bacterial vaginosis [facility] Pending 00:00:00 panel, vaginal Group [code = bacterial vaginosis panel, vaginal] Encounters Start End Encounter Admission Attending Care Care Encounter Source Date/Time Date/Time Type Type Clinicians Facility Department ID 2021-11-09 2021-11-09 Telephone JOSR Guo [id number] Univers 00:00:00 00:00:00 Erica CLANCY [id number] it y of HOSPITAL 4.2.7.2.686 [place] as [id number] [facility] 019 Branch 2021-11-08 2021-11-08 Laboratory Only, Ang Db Test [facility] 1.2.8 40.114 [id number] Univers 09:30:00 09:45:00 Only Byron [facility] [id number] ity [facility] 4.2.7.2.686 [place] as VIKRAM?BLEA [id number] [address] MEDICAL OFFICE BUILDING 2021-11-08 2021-11-08 Outpatient R BYRON [facility] [id number] Univers 09:30:00 09:30:00 TONJA ity [facility] 2021-11-08 2021-11-08 Orders Doctor OVALLES [id number] Univers 00:00:00 00:00:00 Only UnassignedJULIETH 350.1.13.10 ity of [place] [id number] [place] as [id number] [facility] 009 Branch 2021-06-16 2021-06-16 Letter JOSR Nuno [id number] Univers 00:00:00 00:00:00 (Out) Cheryl CLANCY [id number] it y of [facility] 4.2.7.2.686 [place] as [id number] [facility] 019 [place] 2021-06-15 2021-06-15 Laboratory Only, Ang Db Test [facility] 1.2.8 40.114 [id number] Univers 09:21:19 09:31:19 Only Ronald Alannah [facility] [id number] ity of [place] 4.2.7.2.686 [place] as Vikram?Blea [id number] [address] Office [facility] 2021-06-15 2021-06-15 Letter Ronald [facility] [id number] Univers 00:00:00 00:00:00 (Out) [facility] [id number] it y of [place] 4.2.7.2.686 [place] as Vikram?Blea [id number] [address] Office [facility] 2021-05-11 2021-05-11 Outpatient White_Hina [facility] [id number] [place] 11:47:00 11:47:00 0729 [facility] 2021-05-11 2021-05-11 Lucia [facility] [place] - [id number] M atagor 00:00:00 00:00:00 Discovery rian Bess [facility]: [address], [place] [address] , Ph. [phone] 2020-09-13 2020-09-13 Emergency Davion DCGERALD [id number] Univers 13:19:00 15:18:00 Gómez Thurston 350.1.13.10 i ty [place]7.2.[place] [employer] [id number] [facility] 084 [place] 2020-09-13 2020-09-13 Emergency X DAVION [facility] ERT [id number] Univers 13:19:00 13:19:00 GÓMEZ cox [facility] 2020-08-31 2020-08-31 Outpatient G_Pappas [facility] [id number] [place] 02:20:00 02:20:00 0726 Medical Group 2020-08-31 2020-08-31 Outpatient G_Pappas [facility] [id number] [place] 02:20:00 02:20:00 1118 [facility] 2019-04-27 2019-04-27 [place]kson [place] - [id number] M atagor 00:00:00 00:00:00 Discovery rian Whitman MD: [address] [place] [address] , Ph. [phone] 2019-04-15 2019-04-15 [place]kson [place] - [id number] M atagor 00:00:00 00:00:00 Discovery rian Whitman MD: [address] [place] [address] , Ph. [phone] 2019-04-13 2019-04-13 [place]kson [place] - [id number] M atagor 00:00:00 00:00:00 Discovery rian Whitman MD: [address] [place] [address] , Ph. [phone] 2019-03-10 2019-03-10 [place]on [place] - [id number] M atagor 00:00:00 00:00:00 Discovery rian Whitman MD: [address] [place] [address] , Ph. [phone] 2018-11-27 2018-11-27 [place]kson [place] - [id number] M atagor 00:00:00 00:00:00 Discovery rian Whitman MD: [address] [place] [address] , Ph. [phone] Results Test Description Test Time Test Comments [...] Blood (test code = Blood) Negative Specific [place] (test code = Specific [place]) 1.020 Ketone (test code = Ketone) Negative Bilirubin (test code = Bilirubin) Negative Glucose (test code = Glucose) Negative Appearance (test code = Appearance) Clear Color (test code = Color) Yellow [facility] [id number] 20:25:00 Test Item Value Reference Range Interpretation Comments TROPONIN I (test <0.012 See_Comment [Automated code = 5248917250) message] The system which generated this result [...] ? Lab Interpretation Normal (test code = 14444-6) [facility] 1 [id number] 20:19:55HISTORY: Chest pain. TECHNIQUE: Portable AP semierect [...] chest is obtained.FINDINGS: No acute pneumonia. No pneumothorax or pleural effusion orpulmonary congestion detected. Cardiac size is within normal limits. [place] of mild thoracolumbar scoliosis.CONCLUSIONS: No signs of acute cardiopulmonary disease.[facility]ID NOW RAPID TESTING)2020-09-13 20:16:00 Test Item Value Reference Range Interpretation Comments SARS-CoV-2 Rapid ID NOW Not Detected Not Detected (test code = 75217-2) KHADIJAH (test code = KHADIJAH) ID NOW COVID-19 Assay is an isothermal nucleic acid amplification test intended for the qualitative detection of nucleic acid from SARS-CoV-2 viral RNA in nasopharyngeal (QUALITY ASSURANCE PRACTICE MANAGER) specimens. It is used under Emergency Use [...] indicated. Lab Interpretation Normal (test code = 59980-4) [facility] (NA, K, CL, CO2, GLUCOSE, BUN, CREATININE, CA)2020-09-13 20:13:00 Test Item Value Reference Range Interpretation Comments NA (test code = 141 mmol/L 135-145 8092617877) K (test code = 3.4 mmol/L 3.5-5 L 9038935652) CL (test code = 102 mmol/L 98-108 7783148875) CO2 TOTAL (test code = 30 mmol/L 23-31 5691815435) AGAP (test code = 2-16 0875526093) BUN (test code = 13 mg/dL 7-23 6311769436) GLUCOSE (test code = 140 mg/dL 70-110 H 7769389622) CREATININE (test code = 0.59 mg/dL 0.5-1.04 3628462455) CALCIUM (test code = 9.2 mg/dL 8.6-10.6 3993696249) eGFR Calculation mL/min/1.73m2 (Non-) (test code = 8271173998) eGFR Calculation mL/min/1.73m2 () (test code = 8429804210) KHADIJAH (test code = KHADIJAH) Association of [...] tests). Lab Interpretation Abnormal (test code = 30346-5) [facility] (ALB, T.PRO, BILI T, BU/BC, ALT, AST, ALK PHOS)2020-09-13 20:13:00 Test Item Value Reference Range Interpretation Comments TOTAL BILI (test code = 3557904789) 0.5 mg/dL 0.1-1.1 BILI UNCON (test code = 4436858905) 0.5 mg/dL 0.1-1.1 BILI CONJ (test code = 8601779367) 0.0 mg/dL 0-0.3 T PROTEIN (test code = 6067356415) 7.3 g/dL 6.3-8.2 ALBUMIN (test code = 6732468624) 4.4 g/dL 3.5-5 ALK PHOS (test code = 5858032788) 52 U/L 34-122 ALTv (test code = 1742-6) 14 U/L 5-35 AST(SGOT) (test code = 6971205181) 22 U/L 13-40 Lab Interpretation (test code = Normal 30994-6) [facility] Center[facility] [id number] 20:13:00 Test Item Value Reference Range Interpretation Comments LIPASE (test code = 6037654532) 34 U/L 0-220 Lab Interpretation (test code = Normal 39825-9) [facility] CenterUrinalysis2020-12-01 20:12:00 Test Item Value Reference Range Interpretation Comments APPEARANCE (test code = Hazy Clear A 3301627419) COLOR (test code = Yellow Yellow 7806165917) PH (test code = 4.8-8.0 6114158954) SP GRAVITY (test code = 1.003-1.030 2910919384) GLU U QUAL (test code = Normal Normal 7498772246) BLOOD (test code = 2+ Negative A 7199500710) KETONES (test code = Negative Negative 4472474266) PROTEIN (test code = Negative Negative 2887-8) UROBILIN (test code = Normal Normal 7641106537) BILIRUBIN (test code = Negative Negative 6844408510) NITRITE (test code = Negative Negative 4358203849) LEUK DOMINGO (test code = Negative Negative 0513734766) RBC/HPF (test code = See_Comment [Autom ated message] 3829339434) The system [employer] generated this result transmitted ref erence range: 0 - 3 HP F. The reference range was not used to int erpret this result as normal/abnormal . WBC/HPF (test code = See_Comment [Autom ated message] 3518166486) The system [employer] generated this result transmitted ref erence range: 0 - 5 HP F. The reference range was not used to int erpret this result as normal/abnormal . BACTERIA (test code = Few Negative A 6346153267) MUCOUS (test code = Moderate Negative LPF A 4575495196) SQ EPITH (test code = HPF 8525020465) HYAL CAST (test code = See_Comment [Aut omated message] 9673388846) The system [employer] generated this result transmitted ref erence range: <=2 LPF. The reference range was not used to int erpret this result as normal/abnormal . Lab Interpretation (test Abnormal code = 55148-4) [facility] CenteraPTT2020-12-01 20:11:00 Test Item Value Reference Range Interpretation Comments APTT Patient (test See_Comment [Automat ed code = 3173-2) message] The system which generated this result transmitted reference range : 23 - 38 Seconds . The reference range was not used to interpr et this result as normal/abnormal . KHADIJAH (test code = KHADIJAH) The [facility] patient population mean normal value for aPTT is 30 seconds. Lab Interpretation Normal (test code = 74824-9) [facility] / [facility] - DRUG SCREEN [id number] 20:11:00 Test Item Value Reference Range Interpretation Comments BENZO U (test code = Negative Negative 4342612946) CHRIS U (test code = Negative Negative 1346184021) AMPHET (test code = Negative Negative 9223074806) THC (test code = Negative Negative 6500623952) METHADONE (test code = Negative Negative 2337680493) Meth U (test code = Negative Negative 4413427723) OPIATES (test code = Negative Negative 8667851504) Cocaine Metabolite (test Negative Negative code = 0654518633) PROPOXY (test code = Negative Negative 5850533104) Tric U (test code = Negative Negative 6658663211) PCP (test code = Negative Negative 4067518908) OXYCOD (test code = Negative Negative 4774421955) KHADIJAH (test code = KHADIJAH) Urine Drug [...] testing). Lab Interpretation (test Normal code = 44531-1) [facility] / [id number] 20:09:00 Test Item Value Reference Range Interpretation [...] tions. Lab Interpretation (test Normal code = 80182-7) [facility] with [id number] 20:00:00 Test Item Value Reference Range Interpretation Comments WBC (test code = See_Comment [Automated 4890-2) message] The sy stem which generated this result transmitted reference range : 4.30 - 11.10 10*3/?L. The reference range was not used to interpret this result as normal/abnormal . RBC (test code = See_Comment [Automated 019-8) message] The sy stem which generated this [...] RDW-SD (test code = 39.3 fL 39-49.9 49821-8) RDW-CV (test code = 11.4 % 12-15.5 L 788-0) PLT (test code = See_Comment [Automated 777-3) message] The sy stem which generated this result transmitted reference range : 166 - 358 10*3/ ?L. The reference r mirna was not used to interpret this result as normal/abnormal . MPV (test code = 9.8 fL 9.5-12.9 09268-9) NRBC/100 WBC (test See_Comment [Automat ed code = 3079816355) message] The system which generated this result transmitted reference range : 0.0 - 10.0 /100 WBCs. The refer ence range was not u sed to interpret th is result as normal/abnormal . NRBC x10^3 (test code <0.01 See_Comment [Auto mated = 2357558928) message] The s ystem which generated this result transmitted reference range : 10*3/?L. The reference range was not used to interpret this result as normal/abnormal . GRAN MAT (NEUT) % 67.0 % (test code = 770-8) IMM GRAN % (test code 0.40 % = 2960908311) LYMPH % (test code = 23.1 % 736-9) MONO % (test code = 8.4 % 5905-5) EOS % (test code = 0.7 % 713-8) BASO % (test code = 0.4 % 706-2) GRAN MAT x10^3(ANC) 3.69 10*3/uL 1.88-7.09 (test code = 6909255488) IMM GRAN x10^3 (test <0.03 0-0.06 code = 8043265903) LYMPH x10^3 (test code 1.27 10*3/uL 1.32-3.29 L = 731-0) MONO x10^3 (test code 0.46 10*3/uL 0.33-0.92 = 742-7) EOS x10^3 (test code = 0.04 10*3/uL 0.03-0.39 711-2) BASO x10^3 (test code <0.03 0.01-0.07 = 704-7) Lab Interpretation Abnormal (test code = 10290-8) [facility] [id number] 19:45:00 Test Item Value Reference Range Interpretation Comments POCT PREG (test code = 1605) negative On board controls acceptable with present C Line (test code = 3574) POCT PREG LOT # (test code = 3575) [id number] POCT PREG TEST DATE (test 2022-02-10 code = 3576) Lab Interpretation (test code = Normal 53133-5) [facility] macro (dipstick) panel - Urine 2019-04-27 10:20:03 Test Item Value Reference Range Interpretation Comments Leukocytes (test code = Leukocytes) Negative Nitrite (test code = Nitrite) negative Urobilinogen (test code = .2 Urobilinogen) Protein (test code = Protein) Trace pH (test code = pH) 5.5 Blood (test code = Blood) Negative Specific [place] (test code = 1.030 Specific [place]) Ketone (test code = Ketone) Negative Bilirubin (test code = Bilirubin) Negative Glucose (test code = Glucose) Negative Appearance (test code = Appearance) Clear Color (test code = Color) Yellow [facility] (dipstick) panel - [id number] 10:35:45 Test Item Value Reference Range Interpretation Comments Leukocytes (test code = Leukocytes) Negative Nitrite (test code = Nitrite) negative Urobilinogen (test code = .2 Urobilinogen) Protein (test code = Protein) Trace pH (test code = pH) 7.0 Blood (test code = Blood) Large Specific [place] (test code = 1.030 Specific [place]) Ketone (test code = Ketone) Negative Bilirubin (test code = Bilirubin) Negative Glucose (test code = Glucose) Negative Appearance (test code = Appearance) Clear Color (test code = Color) [place] [facility] macro (dipstick) panel - [id number] 10:35:45 Test Item Value Reference Range Interpretation Comments Leukocytes (test code = Leukocytes) Negative Nitrite (test code = Nitrite) negative Urobilinogen (test code = .2 Urobilinogen) Protein (test code = Protein) Trace pH (test code = pH) 7.0 Blood (test code = Blood) Large Specific [place] (test code = 1.030 Specific [place]) Ketone (test code = Ketone) Negative Bilirubin (test code = Bilirubin) Negative Glucose (test code = Glucose) Negative Appearance (test code = Appearance) Clear Color (test code = Color) [place] [facility], [id number] 10:18:02 Test Item Value Reference Range Interpretation Comments Test (test code = negative Test) [facility], [id number] 10:18:02 Test Item Value Reference Range Interpretation Comments Test (test code = negative Test) [facility] W Auto Differential panel - [id number] 10:07:00 Test Item Value Reference Range Interpretation Comments white blood count (test code = 6.4 K/uL 4.0-11.5 white blood count) red blood count (test code = red 4.42 M/uL 3.80-5.20 blood count) hemoglobin (test code = 13.8 g/dL 10.5-15.7 hemoglobin) hematocrit (test code = 43.3 % 34.0-50.0 hematocrit) Erythrocyte mean corpuscular 98.0 fL 86-100 volume [Entitic volume] (test code = 31582-4) Erythrocyte mean corpuscular 31.2 pg 26.2-33.4 hemoglobin [Entitic mass] (test code = 07802-6) mean corpuscular HGB conc (test 31.9 g/dL 30-34 code = mean corpuscular HGB conc) red cell distribution width (test 11.9 % 12.0-15.5 L code = red cell distribution width) platelet count (test code = 276 K/uL 165-450 platelet count) mean platelet volume (test code = 9.1 fL 9.4-12.6 L mean platelet volume) Neutrophils.segmented/100 63.4 % 44.4-80.1 leukocytes in Blood (test code = 36366-5) Ig% (test code = Ig%) 0.2 % 0.0-0.4 lymphocyte% (test code = 25.9 % 10.0-50.0 lymphocyte%) Monocytes/100 leukocytes in Blood 9.0 % 3.6-12.0 by Automated count (test code = 5905-5) Eosinophils/100 leukocytes in 1.2 % 0.0-5.4 Blood by Automated count (test code = 713-8) Basophils/100 leukocytes in 0.3 % 0.1-1.2 Unspecified specimen (test code = 78337-7) absolute neutrophil count (test 4.06 K/uL 1.56-6.13 code = absolute neutrophil count) Ig# (test code = Ig#) 0.0 K/uL 0.0-0.03 Lymphocytes [#/volume] in 1.7 K/uL 1.18-3.74 Unspecified specimen by Automated count (test code = 85105-1) mono # (test code = mono #) 0.58 K/uL 0.24-0.86 eos # (test code = eos #) 0.08 K/uL 0.04-0.36 basophil # (test code = basophil 0.02 K/uL 0.01-0.08 #) NRBC% (test code = NRBC%) 0 /100 WBC 0-0.2 NRBC# (test code = NRBC#) 0 K/uL [facility], [id number] 15:26:00 Test Item Value Reference Range Interpretation Comments Test (test code = negative Test) [facility] macro (dipstick) panel - [id number] 15:26:00 Test Item Value Reference Range Interpretation Comments Leukocytes (test code = Leukocytes) Trace Nitrite (test code = Nitrite) negative Urobilinogen (test code = .2 Urobilinogen) Protein (test code = Protein) Negative pH (test code = pH) 6.5 Blood (test code = Blood) Negative Specific [place] (test code = 1.030 Specific [place]) Ketone (test code = Ketone) Negative Bilirubin (test code = Bilirubin) Negative Glucose (test code = Glucose) Negative Appearance (test code = Appearance) Clear Color (test code = Color) Yellow [facility]idianChoriogonadotropin.beta subunit [Units/volume] in Serum or [id number] 01:50:00 Test Item Value Reference Range Interpretation Comments HCG quantitative (test code = HCG 0.1 mIU/mL 0-5 quantitative) [facility]"
[2022-06-01 15:47] LABS: Absolute Lymphocytes (CBC) 1.5 K/uL (0.7-4.9); Hematocrit 41.4 % (36.0-45.0); Lymphocytes % 15.7 % (15.3-44.8); MCV 93.8 fL (80-100); MPV 7.3 fL (7.6-11.3); RBC Red Blood Cell Count 4.42 M/uL (3.86-4.86)
[2022-06-01] MEDS ORDERED: ONDANSETRON 4 MG/2 ML VIAL ONE (15:53)
[2022-06-01] MEDS ORDERED: NA CHLORIDE 0.9% 1,000 ML ONE (15:53)
[2022-06-01 15:57] LABS: Urine Blood Negative (Negative); Urine Glucose Negative (Negative); Urine Protein Negative (Negative); Urine Specific Gravity 1.015 (1.005-1.030)
[2022-06-01 16:07] LABS: Albumin 4.4 g/dL (3.4-5.0); Bilirubin Total 0.3 mg/dL (0.2-1.0); Potassium 3.9 mmol/L (3.5-5.1); Protein, Total 8.4 g/dL (6.4-8.2)
[2022-06-01 16:21] LABS: Urine Specific Gravity/Preg 1.015 (1.005-1.030)
[2022-06-01] MEDS ORDERED: PROMETHAZINE INJ 25 MG/ML AMP ONE (16:25)
--- NOTE | 2022-06-01 17:14 | EDPHYS ---
Physician Documentation [facility] Name: Josee Anthony Age: 32 yrs Sex: Female : 1990 Arrival Date: 06/01/2022 Time: 14:59 Bed DIS3 Private MD: ED Physician Naveen Lam HPI: 06/01 17:51 This 32 yrs old Female presents to ER via Ambulatory with complaints of dehydration. kb 17:52 The patient presents to the emergency department with nausea, vomiting. Onset: The kb symptoms/episode began/occurred this morning. Possible causes: "I drank a lot of alcohol last night". The symptoms are aggravated by nothing. The symptoms are alleviated by nothing. Associated signs and symptoms: Pertinent positives: nausea, vomiting. Severity of symptoms: At their worst the symptoms were moderate in the emergency department the symptoms are unchanged. The patient has not experienced similar symptoms in the past. The patient has not recently seen a physician. Pt states she drank a lot of alcohol last night and has not been able to tolerate anything by mouth today. REprots nausea, vomiting and dizziness. 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 - Social history:: Patient uses alcohol, on a daily basis. Smoking status: Patient reports the use of cigarette tobacco products, denies chronic smoking, but will smoke occasionally. ROS: 17:51 Constitutional: Negative for fever, chills, and weight loss. kb 17:51 Abdomen/GI: Positive for nausea and vomiting, Negative for abdominal pain. 17:51 Neuro: Positive for dizziness. 17:51 All other systems are negative. Exam: 17:51 Constitutional: This is a well developed, well nourished patient who is awake, alert, kb and in no acute distress. Head/Face: Normocephalic, atraumatic. ENT: Moist Mucous membranes Cardiovascular: Regular rate and rhythm with a normal S1 and S2. No gallops, murmurs, or rubs. No pulse deficits. Respiratory: Respirations even and unlabored. No increased work of breathing. Talking in full sentences Abdomen/GI: Soft, non-tender. No distention Skin: Warm, dry with normal turgor. Normal color. MS/ Extremity: Pulses equal, no cyanosis. Neurovascular intact. Full, normal range of motion. Neuro: Awake and alert, GCS 15, oriented to person, place, time, and situation. Moves all extremities. Normal gait. Psych: Awake, alert, with orientation to person, place and time. Behavior, mood, and affect are within normal limits. Vital Signs: 15:20 BP 132 / 86; Pulse 83; Resp 16; Temp 97.5(TE); Pulse Ox 100% on R/A; Weight 58.97 kg bm7 (R); Height 5 ft. 2 in. (157.48 cm); Pain 5/10; 15:20 Body Mass Index 23.78 (58.97 kg, 157.48 cm) bm7 MDM: 15:17 Patient medically screened. kb 17:51 Data reviewed: vital signs, nurses notes. Data interpreted: Pulse oximetry: on room air kb is 100 %. Interpretation: normal. Counseling: I had a detailed discussion with the patient and/or guardian regarding: the historical points, exam findings, and any diagnostic results supporting the discharge/admit diagnosis, lab results, the need for outpatient follow up, a family practitioner, to return to the emergency department if symptoms worsen or persist or if there are any questions or concerns that arise at home. ED course: Tolerating po intake. 06/01 15:20 Order name: CBC with Diff; Complete Time: 15:59 kb 06/01 15:20 Order name: CMP; Complete Time: 16:10 kb 06/01 15:20 Order name: Lipase; Complete Time: 16:10 kb 06/01 15:57 Order name: Urine Dipstick-Ancillary; Complete Time: 15:59 EDMS 06/01 15:58 Order name: Urine --Ancillary (enter results); Complete Time: 16:27 aa5 06/01 15:20 Order name: IV Saline Lock; Complete Time: 15:48 kb 06/01 15:20 Order name: Labs collected and sent; Complete Time: 15:48 kb 06/01 15:20 Order name: Urine Dipstick-Ancillary (obtain specimen); Complete Time: 15:57 kb 06/01 15:20 Order name: Urine Test (obtain specimen); Complete Time: 15:57 kb 06/01 16:55 Order name: PO challenge; Complete Time: 17:16 kb Administered Medications: 15:47 Drug: NS 0.9% 1000 ml Route: IV; Rate: 1 bolus; Site: left antecubital; aa5 17:22 Follow up: IV Status: Completed infusion; IV Intake: 1000ml bm7 15:48 Drug: Zofran (Ondansetron) 4 mg Route: IVP; Site: left antecubital; aa5 15:58 Follow up: Response: No adverse reaction aa5 16:20 Drug: Phenergan (promethazine) 6.25 mg Route: IVP; Site: left antecubital; aa5 16:30 Follow up: Response: No adverse reaction aa5 Disposition Summary: 06/01/22 17:13 Discharge Ordered Location: Home kb Condition: Stable kb Diagnosis - Nausea with vomiting, unspecified kb Followup: kb - With: Emergency Department - When: As needed - Reason: Worsening of condition Followup: kb - With: Private Physician - When: 2 - 3 days - Reason: Recheck today's complaints, Continuance of care, Re-evaluation by your physician Discharge Instructions: - Discharge Summary Sheet kb - Nausea and Vomiting, Adult, [id number] kb Forms: - Medication Reconciliation Form kb - Thank You Letter kb - Antibiotic Education kb - Prescription Opioid Use kb Prescriptions: - Zofran 4 mg Oral Tablet - take 1 tablet by ORAL route every 6 hours As needed; 10 tablet; Refills: 0, kb Product Selection Permitted Signatures: Dispatcher [employer] Jessica Aparicio FNP-C FNP-Antonietta Lopez, RN RN aa5 Jenna Go, RN RN bm7
--- NOTE | 2022-06-01 17:14 | ER ---
Nurse's Notes [facility] Name: Josee Anthony Age: 32 yrs Sex: Female : 1990 Arrival Date: 06/01/2022 Time: 14:59 Bed DIS3 Private MD: Diagnosis: Nausea with vomiting, unspecified Presentation: 06/01 15:17 Chief complaint: Patient states: I am so dehydrated and I am going into a state of bm7 confusion. I drank too much last night and I am dizzy and feel like I am going to pass out. Coronavirus screen: At this time, the client does not indicate any symptoms associated with coronavirus-19. Ebola Screen: No symptoms or risks identified at this time. Initial Sepsis Screen: Does the patient meet any 2 criteria? No. Patient's initial sepsis screen is negative. Does the patient have a suspected source of infection? No. Patient's initial sepsis screen is negative. Risk Assessment: Do you want to hurt yourself or someone else? Patient reports no desire to harm self or others. Onset of symptoms was June 01, 2022. 15:17 Method Of Arrival: [facility] 15:17 Acuity: ROBERT 3 bm7 Triage Assessment: 15:21 General: Appears in no apparent distress. uncomfortable, well groomed, well developed, bm7 Behavior is anxious. Pain: Complains of pain in right lower quadrant and left lower quadrant Pain does not radiate. EENT: Nares are clear Oral mucosa is moist. Neuro: No deficits noted. Cardiovascular: No deficits noted. Respiratory: No deficits noted. GI: Reports cramping, intolerance of fluids, intolerance of food, nausea, vomiting. : No deficits noted. No signs and/or symptoms were reported regarding the genitourinary system. Derm: No deficits noted. No signs and/or symptoms reported regarding the dermatologic system. Musculoskeletal: No deficits noted. No signs and/or symptoms reported regarding the musculoskeletal system. 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 - Social history:: Patient uses alcohol, on a daily basis. Smoking status: Patient reports the use of cigarette tobacco products, denies chronic smoking, but will smoke occasionally. Screenin:40 Abuse screen: Denies threats or abuse. Nutritional screening: No deficits noted. aa5 Tuberculosis screening: No symptoms or risk factors identified. Fall Risk None identified. Assessment: 15:40 General: Appears uncomfortable, Behavior is calm, cooperative. Pain: Denies pain. aa5 Neuro: Level of Consciousness is awake, alert, obeys commands, Oriented to person, place, time, situation, Hand Launderer are equal bilaterally Moves all extremities. Gait is steady, Speech is normal, Facial symmetry appears normal, Reports dizziness. Cardiovascular: Heart tones S1 S2 present Rhythm is regular. Respiratory: Airway is patent Respiratory effort is even, unlabored, Respiratory pattern is regular, symmetrical. GI: Abdomen is round non-distended, Bowel sounds present X 4 quads. Abd is soft and non tender X 4 quads. Reports nausea. : No signs and/or symptoms were reported regarding the genitourinary system. EENT: No signs and/or symptoms were reported regarding the EENT system. Derm: Skin is pink, warm \T\ dry. Musculoskeletal: Range of motion: intact in all extremities. 16:20 Reassessment: Patient is alert, oriented x 3, equal unlabored respirations, skin aa5 warm/dry/pink. 16:48 Reassessment: Patient is alert, oriented x 3, equal unlabored respirations, skin aa5 warm/dry/pink. Patient states feeling better. Patient states symptoms have improved. 17:00 Reassessment: Pt given gatorade drink for PO challenge . aa5 Vital Signs: 15:20 BP 132 / 86; Pulse 83; Resp 16; Temp 97.5(TE); Pulse Ox 100% on R/A; Weight 58.97 kg bm7 (R); Height 5 ft. 2 in. (157.48 cm); Pain 5/10; 15:20 Body Mass Index 23.78 (58.97 kg, 157.48 cm) bm7 ED Course: 14:59 Patient arrived in ED. as 15:02 Jessica Lilly FNP-C [facility]. kb 15:02 Naveen Lam MD is Attending Physician. kb 15:19 Triage completed. bm7 15:20 Arm band placed on right wrist. bm7 15:40 Patient has correct armband on for positive identification. aa5 15:40 Initial lab(s) drawn, by me, sent to lab. Inserted saline lock: 22 gauge in left aa5 antecubital area, using aseptic technique. Blood collected. 15:47 Antonietta Reyes, RN is Primary Nurse. aa5 17:22 No provider procedures requiring assistance completed. IV discontinued, intact, bm7 bleeding controlled, No redness/swelling at site. Pressure dressing applied. Administered Medications: 15:47 Drug: NS 0.9% 1000 ml Route: IV; Rate: 1 bolus; Site: left antecubital; aa5 17:22 Follow up: IV Status: Completed infusion; IV Intake: 1000ml bm7 15:48 Drug: Zofran (Ondansetron) 4 mg Route: IVP; Site: left antecubital; aa5 15:58 Follow up: Response: No adverse reaction aa5 16:20 Drug: Phenergan (promethazine) 6.25 mg Route: IVP; Site: left antecubital; aa5 16:30 Follow up: Response: No adverse reaction aa5 Medication: 17:22 VIS not applicable for this client. bm7 Intake: 17:22 IV: 1000ml; Total: 1000ml. bm7 Outcome: 17:13 Discharge ordered by MD. kb 17:22 Discharged to home ambulatory, with family. bm7 17:22 Condition: improved 17:22 Discharge instructions given to patient, family, Instructed on discharge instructions, follow up and referral plans. medication usage, Demonstrated understanding of instructions, follow-up care, medications, Prescriptions given X 1. 17:23 Patient left the ED. bm7 Signatures: Jessica Lilly, PYTHON JAVA DEVELOPER-C PYTHON JAVA DEVELOPER-Valeria Craig as Antonietta Reyes, RN RN aa5 Jenna Go, CAMILA RN bm7 Corrections: (The following items were deleted from the chart) 16:50 15:40 Neuro: Level of Consciousness is awake, alert, obeys commands, Oriented to aa5 person, place, time, situation, Reports dizziness, aa5
[2022-06-01 19:10] VITALS: BP 132/86; TEMP 97.5; O2SAT 100
== END 2022-06-01 17:23 | disposition home or self-care (01) ==
LOC: ER 14:57
DX: R11.2 Nausea with vomiting, unspecified (principal); F17.210 Nicotine dependence, cigarettes, uncomplicated
CPT/HCPCS: 96361; 85025; 36415; 81025; 81003; 83690; 80053; 96375; 96374; 99284; J2550; J7030; J2405

== ENCOUNTER 2022-08-03 23:46 | Emergency (ER) | payer OTHER ==
--- OUTSIDE RECORDS SUMMARY | 2022-08-03 23:48 | XMS REPORT | Continuity of Care Document ---
:1990 Author Organization [facility] t Address [address] [place] [address] Care Team Providers Name Role Phone ELLIS PHIPPS Primary Care Physician Unavailable Lab, Ang - Db Attending Clinician Unavailable Ellis Jacome Attending Clinician ELLIS PHIPPS Attending Clinician Unavailable Erica Guo RN Attending Clinician Unavailable Only, Ang Db Test Attending Clinician Unavailable Tonja Matthews MD Attending Clinician TONJA MATTHEWS Attending Clinician Unavailable Doctor Unassigned, [place] Attending Clinician Unavailable Cheryl Nuno RN Attending Clinician Unavailable Alannah Novak Attending Clinician White_M Attending Clinician Unavailable Gómez Ricardo MD Attending Clinician GÓMEZ RICARDO Attending Clinician Unavailable Cresencio_Antonette Attending Clinician Unavailable White_M Admitting Clinician Unavailable Cresencio_Antonette Admitting Clinician Unavailable Payers Payer Name Policy Type Policy Number Effective Date Expiration Date [facility] [id number] 2013 CHOICE (MEDICAID 00:00:00 REPLACEMENT - HMO) Problems Condition Condition Condition Status Onset Resolution Last Treating Co mments Source Name Details Category Date Date Treatment Clinician Date Nausea Nausea Disease Active Univers 8-26 ity of 00:00: [place] 00 Medical Branch Chest Chest Disease Active Univers pain, pain, 8- [place] of [place] d type 00 Medical [place] Acute Acute Disease Active Univers nonintract nonintract 8- it y of able able 00:00: [place] headache, headache, 00 Medi corona unspecifie unspecifie Br anch d headache d headache type type Contact Contact Disease Active Univers with and with and 8-26 [place] of [place]suspected [place] exposure ) exposure 00 Me dical to to Branch covid-19 covid-19 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 3-04 da 00:00: Medical 00 Group Dysmenorrh Dysmenorrh Problem Active M atagor ea ea 2-23 da 00:00: Medical 00 Group Menorrhagi Menorrhagi Problem Active M at[place] a a 2-23 da 00:00: Medical 00 Group Sterilizat Sterilizat Problem Active M atagor ion ion 2-23 da requested Requested 00:00: [facility] corona 00 Group Allergies, Adverse Reactions, Alerts Allergy Allergy Status Severity Reaction(s) Onset Inactive Treating Comm ents Source Name Type Date Date Clinician Mushroom Allergy Active Moderate Hives [place] to 7- da substanc 00:00: Medical e 00 Group Mushroom Drug Active Hives Univers Allergy 05-11 ity of 00:00: [place] 00 Medical Branch MUSHROOM DRUG Active Med Hives Univers INGREDI - ity of 00:00: [place] 00 Medical Branch Social History Social Habit Start Date Stop Date Quantity Comments Source Exposure to 2022-06-05 2022-06-15 Not sure [facility] SARS-CoV-2 (event) 00:00:00 08:36:00 Medica l Branch Sex Ass[birth year] [facility] y of [place] 00:00:00 00:00:00 Medical Branch Smoking Status Start Date Stop Date Source Light Tobacco Smoker Sahra davis Group Tobacco smoking consumption [facility] Medical unknown Branch Medications Ordered Filled Start Stop Current Ordering Indication Dosage Frequency Signature Comments Components Source Medication Medication Date Date Medication? Clinician (SIG) Name Name ibuprofen 2021- Yes [id number] 600mg Take 1 Univers 600 mg 8-26 09-10 tablet by ity of tablet 00:00: 04:59 mouth [place] 00 :00 every 6 Medical (six) Branch hours as needed for Temp > 38.5 C for up to 14 days. ibuprofen 2021- Yes [id number] 600mg Take 1 Univers 600 mg 8-26 09-10 tablet by ity of tablet 00:00: 04:59 mouth [place] 00 :00 every 6 Medical (six) Branch hours as needed for Temp > 38.5 C for up to 14 days. ondansetron 2021- Yes [id number] 4mg Take 1 Univers (ZOFRAN) 4 06-08 tablet by ity of mg tablet 00:00: 04:59 mouth [place] 00 :00 every 8 Medical (eight) Branch hours as needed for Nausea and Vomiting (N/V) for up to 10 days. ondansetron 2021- Yes [id number] 4mg Take 1 Univers (ZOFRAN) 4 06-08 tablet by ity of mg tablet 00:00: 04:59 mouth [place] 00 :00 every 8 Medical (eight) Branch hours as needed for Nausea and Vomiting (N/V) for up to 10 days. sucralfate 2020- Yes [id number] 1g Take 1 U nivers 1 gram 2-01 tablet by ity of tablet 00:00: mouth [place] 00 before Medical meals and Branch at bedtime. ibuprofen 2019-10 Yes [id number] 600mg Take 1 U nivers 600 mg 2-01 tablet by ity of tablet 00:00: mouth [place] 00 every 6 Medical (six) Branch hours as needed for Pain (scale 4-6). sucralfate 2019- Yes [id number] 1g Take 1 U nivers 1 gram 2-01 tablet by ity of tablet 00:00: mouth [place] 00 before Medical meals and Branch at bedtime. ibuprofen 2019- Yes [id number] 600mg Take 1 U nivers 600 mg [...] Immunizations Ordered Filled Immunization Date Status Comments Sourc e Immunization Name Name Hep B, Adol or Pedi 2001-10-30 Completed Unive rsity of Dosage 00:00:00 [place] [facility] Varicella 2001-10-30 Completed [facility] (varivax)(chicken 00:00:00 [facility] edical pox) Branch Vital Signs Vital Name Observation Time Observation Value Comments Source BP Diastolic 2021-05-11 00:00:00 72 mm[Hg] [facility] Height 2021-05-11 00:00:00 62 [in_i] [facility] BMI (Body Mass 2021-05-11 00:00:00 22.9 kg/m2 [facility] v[facility] stapler Medical Index) Group BP Systolic 2021-05-11 00:00:00 120 mm[Hg] [facility] Body Weight 2021-05-11 00:00:00 125 [lb_av] [facility] BP Systolic 2019-04-27 00:00:00 124 mm[Hg] [facility] Body Weight 2019-04-27 00:00:00 121.6 [lb_av] [facility] BP Diastolic 2019-04-27 00:00:00 80 mm[Hg] [facility] Height 2019-04-27 00:00:00 62 [in_i] [facility] BMI (Body Mass 2019-04-27 00:00:00 22.2 kg/m2 [facility] Medical Index) Group BP Diastolic 2019-04-13 00:00:00 82 mm[Hg] [facility] Height 2019-04-13 00:00:00 62 [in_i] [facility] BMI (Body Mass 2019-04-13 00:00:00 22.1 kg/m2 [facility] Medical Index) Group BP Systolic 2019-04-13 00:00:00 119 mm[Hg] [facility] Body Weight 2019-04-13 00:00:00 120.9 [lb_av] [facility] BP Diastolic 2019-03-10 00:00:00 82 mm[Hg] [facility] Height 2019-03-10 00:00:00 62 [in_i] [facility] BMI (Body Mass 2019-03-10 00:00:00 22.1 kg/m2 [facility] Medical Index) Group BP Systolic 2019-03-10 00:00:00 116 mm[facility]Hg[facility] Body Weight 2019-03-10 00:00:00 120.8 [lb_av] [facility] BP Diastolic 2018-11-27 00:00:00 74 mm[Hg] [facility] Height 2018-11-27 00:00:00 62 [in_i] [facility] BMI (Body Mass 2018-11-27 00:00:00 21.6 kg/m2 [facility] Medical Index) Group BP Systolic 2018-11-27 00:00:00 118 mm[Hg] [facility] Body Weight 2018-11-27 00:00:00 118 [lb_av] [facility] Procedures Procedure Date / Time Performed Performing Clinician Sourc e Tubal Ligation (Surg) 2019-04-15 00:00:00 [facility] Medical [facility] Caesarean Section 2013-11-27 00:00:00 [facility] Caesarean Section 2009-04-11 00:00:00 [facility] Caesarean Section 2008-01-30 00:00:00 [facility] Plan of Care Planned Activity Planned Date Details Comments Source Diagnostic Test 2021-05-11 urinalysis, [place] [facility] Pending 00:00:00 dipstick [code = Group urinalysis, dipstick] Diagnostic Test 2021-05-11 HIV (1+2) Ab [place] [facility] [facility] Pending 00:00:00 screen, serum [code Group = HIV (1+2) Ab screen, serum] Diagnostic Test 2021-05-11 RPR (rapid plasma [facility] Pending 00:00:00 reagin), serum Group [code = RPR (rapid plasma reagin), serum] Diagnostic Test 2021-05-11 HBsAg [facility]patitis B [facility] Pending 00:00:00 surface Ag), serum Group [code = HBsAg (hepatitis B surface Ag), serum] Diagnostic Test 2021-05-11 CT + NG + TV, DNA, [facility] [facility] Pending 00:00:00 urine/swab [code = Group CT + NG + TV, DNA, urine/swab] Diagnostic Test 2021-05-11 bacterial vaginosis [facility] Pending 00:00:00 panel, vaginal Group [code = bacterial vaginosis panel, vaginal] Encounters Start End Encounter Admission Attending Care Care Encounter Source Date/Time Date/Time Type Type Clinicians Facility Department ID 2022-06-15 2022-06-15 Drop Shipment Clerk Lab, Ang - Db [facility] [id number] Univers 08:45:00 09:00:00 Visit Ellis Phipps [place] [id number] ity of [place] [id number] [place] as VIKRAM?BLEA [id number] [address] MEDICAL OFFICE BUILDING 2022-06-15 2022-06-[address] [facility] [facility] [id number] [facility] 08:45:00 08:45:00 ELLIS dckana [facility] 2022-06-11 2022-06-11 [facility]phone [facility] [id number] [facility] 00:00:00 00:00:[facility] [id number] it y of [place] [id number] [place] as VIKRAM?BLEA [phone] [address] MEDICAL OFFICE BUILDING 2022-06-11 2022-06-11 Telephone [facility] [id number] Univers 00:00:00 00:00:00 Ellis HEALTH [id number] it y of [place] 4.2.7.2.686 [place] as VIKRAM?BLEA [phone] [address] MEDICAL OFFICE BUILDING 2022-06-08 2022-06-08 Office [facility] [id number] Univers 15:00:00 17:02:12 Visit Ellis [place] [id number] it y of [place] [id number] N[place] as VIKRAM?BLEA [id number] [address] MEDICAL OFFICE BUILDING 2022-06-08 2022-06-[address] [facility] [id number] Univers 15:00:00 17:02:12 ELLIS cox [facility] 2022-06-08 2022-06-[address] [facility] [id number] Univers 15:00:00 17:02:12 ELLIS cox [facility] 2022-06-08 2022-06-[address] [facility] [id number] Univers 15:00:00 15:00:00 ELLIS cox [facility] 2022-06-08 2022-06-08 Abstract [facility] [id number] Univers 00:00:00 00:00:00 Ellis HEALTH [id number] it y of [place] 4.2.7.2.686 Nabor as VIKRAM?BLEA [id number] [facility] [address] MEDICAL OFFICE [facility] 2021-11-09 2021-11-09 Telephone JOSR Guo [id number] Univers 00:00:00 00:00:00 Ericaalfonso CLANCY 350.1.13.10 it y of HOSPITAL 4.2.7.2.686 [place] as [phone] [facility] [address] 2021-11-08 2021-11-08 Laboratory Only, Ang Db Test [facility] 1.2.8 [id number] [id number] Univers 09:30:00 09:45:00 Only Byron Tonja [place] 350.1.13.10 ity of [place] 4.2.7.2.686 Nabor as VIKRAM?BLEA [id number] [facility] [address] MEDICAL OFFICE BUILDING 2021-11-08 2021-11-[address] [facility] [id number] Univers 09:30:00 09:30:00 TONJA cox [facility] 2021-11-08 2021-11-08 Orders Doctor OVALLES [id number] Univers 00:00:00 00:00:00 Only Unassigned, JULIETH 350.1.13.10 ity of [place] HOSPITAL 4.2.7.2.686 Nabor as [id number] [facility] 009 Branch 2021-06-16 2021-06-16 Letter JOSR Nuno [id number] Univers 00:00:00 00:00:00 (Out) Cheryl CLANCY 350.1.13.10 it y of [facility] 4.2.7.2.686 N[place] as [id number] [facility] [address] 2021-06-15 2021-06-15 Laboratory Only, Ang Db Test [facility] 1.2.8 [id number] [id number] Univers 09:21:19 09:31:19 Only Ronald Alannah [facility] 350.1.13.10 ity of [place] 4.2.7.2.686 [place] Vikram?Blea [id number] [address] Medical Office [facility] 2021-06-15 2021-06-15 Letter Ronald [facility] [id number] Univers 00:00:00 00:00:00 (Out) [facility] [id number] it y of [place] 4.2.7.2.686 [place] Vikram?Blea [id number] [address] Medical Office [facility] 2021-05-11 2021-05-11 Lucia Dawson [facility] [place] - [id number] [place] 00:00:00 00:00:00 Discovery Maria Alejandra 0729 da [facility]-: [address], [place] [address] , Ph. [phone] 2020-09-13 2020-09-13 Emergency [facility] [id number] Univers 13:19:00 15:18:00 Gómez [place] 350.1.13.10 i ty of [place] 4[place]2.7.2.686 [place] [id number] [facility] [address] 2020-09-13 2020-09-13 Emergency X [facility] ERT [id number] Univers 13:19:00 13:19:00 GÓMEZ ity [facility] 2020-08-31 2020-08-31 Outpatient G_Pappas [facility] [id number] [place] 02:20:00 02:20:00 1118 da [facility] 2019-04-27 2019-04-27 [place] - [id number] [place] 00:00:00 00:00:00 Discovery Antonette 0715 rian MD: [address] [place] [phone] , Ph. [phone] 2019-04-15 2019-04-15 [place] - [id number] [place] 00:00:00 00:00:00 Discovery Antonette 0703 rian MD: [address] [place] [address] , Ph. [phone] 2019-04-13 2019-04-13 [place] - [id number] [place] 00:00:00 00:00:00 Discovery Antonette 0701 da MD: [address] [place] [phone] , Ph. [phone] 2019-03-10 2019-03-10 [place] - [id number] [place] 00:00:00 00:00:00 Discovery Antonette 0528 rian MD: [address] [place] [phone] , Ph. [phone] 2018-11-27 2018-11-27 [place] - [id number] [place] 00:00:00 00:00:00 Discovery Antonette 0214 rian MD: [address] [place] [phone] , Ph. [phone] Results Test Description Test Time Test Comments [...] Blood (test code = Blood) Negative Specific Chandler (test code = Specific Chandler) 1.020 Ketone (test code = Ketone) Negative Bilirubin (test code = Bilirubin) Negative Glucose (test code = Glucose) Negative Appearance (test code = Appearance) Clear Color (test code = Color) Yellow [facility] macro (dipstick) panel - [id number] 10:20:03 Test Item Value Reference Range Interpretation Comments Leukocytes (test code = Leukocytes) Negative Nitrite (test code = Nitrite) negative Urobilinogen (test code = .2 Urobilinogen) Protein (test code = Protein) Trace pH (test code = pH) 5.5 Blood (test code = Blood) Negative Specific Chandler (test code = 1.030 Specific Chandler) Ketone (test code = Ketone) Negative Bilirubin (test code = Bilirubin) Negative Glucose (test code = Glucose) Negative Appearance (test code = Appearance) Clear Color (test code = Color) Yellow [facility] macro (dipstick) panel - [id number] 10:35:45 Test Item Value Reference Range Interpretation Comments Leukocytes (test code = Leukocytes) Negative Nitrite (test code = Nitrite) negative Urobilinogen (test code = .2 Urobilinogen) Protein (test code = Protein) Trace pH (test code = pH) 7.0 Blood (test code = Blood) Large Specific Chandler (test code = 1.030 Specific Chandler) Ketone (test code = Ketone) Negative Bilirubin (test code = Bilirubin) Negative Glucose (test code = Glucose) Negative Appearance (test code = Appearance) Clear Color (test code = Color) [place] [facility] macro (dipstick) panel - [id number] 10:35:45 Test Item Value Reference Range Interpretation Comments Leukocytes (test code = Leukocytes) Negative Nitrite (test code = Nitrite) negative Urobilinogen (test code = .2 Urobilinogen) Protein (test code = Protein) Trace pH (test code = pH) 7.0 Blood (test code = Blood) Large Specific Chandler (test code = 1.030 Specific Chandler) Ketone (test code = Ketone) Negative Bilirubin (test code = Bilirubin) Negative Glucose (test code = Glucose) Negative Appearance (test code = Appearance) Clear Color (test code = Color) [facility], [id number] 10:18:02 Test Item Value Reference Range Interpretation Comments Test (test code = negative Test) [facility], [id number] 10:18:02 Test Item Value Reference Range Interpretation Comments Test (test code = negative Test) [facility] W Auto Differential panel - [id number] 10:07:00 Test Item Value Reference Range Interpretation Comments white blood count (test code = 6.4 K/uL 4.0-11.5 white blood count) red blood count (test code = red 4.42 M/uL 3.80-5.20 blood count) hemoglobin (test code = 13.8 g/dL 10.5-15.7 hemoglobin) hematocrit (test code = 43.3 % 34.0-50.0 hematocrit) Erythrocyte mean corpuscular 98.0 fL 86-100 volume [Entitic volume] (test code = 46711-7) Erythrocyte mean corpuscular 31.2 pg 26.2-33.4 hemoglobin [Entitic mass] (test code = 56318-4) mean corpuscular HGB conc (test 31.9 g/dL 30-34 code = mean corpuscular HGB conc) red cell distribution width (test 11.9 % 12.0-15.5 L code = red cell distribution width) platelet count (test code = 276 K/uL 165-450 platelet count) mean platelet volume (test code = 9.1 fL 9.4-12.6 L mean platelet volume) Neutrophils.segmented/100 63.4 % 44.4-80.1 leukocytes in Blood (test code = 71805-2) Ig% (test code = Ig%) 0.2 % 0.0-0.4 lymphocyte% (test code = 25.9 % 10.0-50.0 lymphocyte%) Monocytes/100 leukocytes in Blood 9.0 % 3.6-12.0 by Automated count (test code = 5905-5) Eosinophils/100 leukocytes in 1.2 % 0.0-5.4 Blood by Automated count (test code = 713-8) Basophils/100 leukocytes in 0.3 % 0.1-1.2 Unspecified specimen (test code = 09532-8) absolute neutrophil count (test 4.06 K/uL 1.56-6.13 code = absolute neutrophil count) Ig# (test code = Ig#) 0.0 K/uL 0.0-0.03 Lymphocytes [#/volume] in 1.7 K/uL 1.18-3.74 Unspecified specimen by Automated count (test code = 04130-0) mono # (test code = mono #) 0.58 K/uL 0.24-0.86 eos # (test code = eos #) 0.08 K/uL 0.04-0.36 basophil # (test code = basophil 0.02 K/uL 0.01-0.08 #) NRBC% (test code = NRBC%) 0 /100 WBC 0-0.2 NRBC# (test code = NRBC#) 0 K/uL [facility], [id number] 15:26:00 Test Item Value Reference Range Interpretation Comments Test (test code = negative Test) [facility] macro (dipstick) panel - [id number] 15:26:00 Test Item Value Reference Range Interpretation Comments Leukocytes (test code = Leukocytes) Trace Nitrite (test code = Nitrite) negative Urobilinogen (test code = .2 Urobilinogen) Protein (test code = Protein) Negative pH (test code = pH) 6.5 Blood (test code = Blood) Negative Specific Chandler (test code = 1.030 Specific [place]) Ketone (test code = Ketone) Negative Bilirubin (test code = Bilirubin) Negative Glucose (test code = Glucose) Negative Appearance (test code = Appearance) Clear Color (test code = Color) Yellow [facility]iChoriogonadotropin.beta subunit [Units/volume] in Serum or [id number] 01:50:00 Test Item Value Reference Range Interpretation Comments HCG quantitative (test code = HCG 0.1 mIU/mL 0-5 quantitative) [facility]
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
== END 2022-08-04 00:09 | disposition home or self-care (01) ==
LOC: ER 23:46
DX: S09.90XA Unspecified injury of head, initial encounter (principal)

== ENCOUNTER 2022-12-09 12:10 | Emergency (ER) | payer OTHER ==
--- OUTSIDE RECORDS SUMMARY | 2022-12-09 12:14 | XMS REPORT | Continuity of Care Document ---
:1990 Author Organization [facility] Address [address] [place] [address] Dr. Mcclendon[address] [place] [id number] Care Team Providers Name Role Phone Ellis Jacome Primary Care Physician Doctor Unassigned, [place] Attending Clinician Unavailable GREGORY HUERTA Attending Clinician Unavailable Gregory Huerta MD Attending Clinician Lab, Ang - Db Attending Clinician Unavailable Ellis Jacome Attending Clinician ELLIS PHIPPS Attending Clinician Unavailable Erica Guo RN Attending Clinician Unavailable Only, Ang Db Test Attending Clinician Unavailable Tonja Matthews MD Attending Clinician TONJA MATTHEWS Attending Clinician Unavailable Cheryl Nuno RN Attending Clinician Unavailable Alannah Novak Attending Clinician Maria Alejandra_Hina Attending Clinician Unavailable Gómez Ricardo MD Attending Clinician GÓMEZ RICARDO Attending Clinician Unavailable Evelyn Attending Clinician Unavailable White_M Admitting Clinician Unavailable GÓMEZ RICARDO Admitting Clinician Unavailable Evelyn Admitting Clinician Unavailable Payers Payer Name Policy Type Policy Number Effective Date Expiration Date [facility] [id number] 2013 CHOICE (MEDICAID 00:00:00 REPLACEMENT - HMO) Problems Condition Condition Condition Status Onset Resolution Last Treating Co mments Source Name Details Category Date Date Treatment Clinician Date Contact Contact Disease Active Univers with and with and 8-26 ity of (sus[place] exposure ) exposure 00 Me dical to to Branch covid-19 covid-19 Nausea Nausea Disease Active Univers 8-26 ity of 00:00: [place] 00 Medical Branch Chest Chest Disease Active Univers pain, pain, 06-08 ity of unspecifie [place] d type d type 00 [facility] Branch Acute Acute Disease Active Univers nonintract nonintract 06-08 it y of able able 00:00: [place] headache, headache, [facility] unspecifie unspecifie Br anch d headache d headache type type 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 3-04 da 00:00: Medical Group Dysmenorrh Dysmenorrh Problem Active M atagor ea ea 2-23 da 00:00: Medical Group Menorrhagi Menorrhagi Problem Active M atagor a a 2-23 da 00:00: Medical Group Sterilizat Sterilizat Problem Active M atagor ion ion 2-23 da requested Requested 00:00: [facility] 00 Group Allergies, Adverse Reactions, Alerts Allergy Allergy Status Severity Reaction(s) Onset Inactive Treating Comm ents Source Name Type Date Date Clinician Mushroom Drug Active Hives Univers Allergy 7-29 ity of 00:00: [place] Medical Branch MUSHROOM DRUG Active Med Hives Univers INGREDI 7-29 ity of 00:00: [place] [facility] Branch Mushroom Allergy Active Moderate Hives [place] to 7-29 da substanc 00:00: Medical e 00 Group Social History Social Habit Start Date Stop Date Quantity Comments Source Exposure to 2022-08-02 2022-08-12 Not sure [facility] SARS-CoV-2 (event) 00:00:00 18:37:00 Medica l Branch Sex Assigned At [birth year] [facility] [place] 00:00:00 00:00:00 Medical Branch Smoking Status Start Date Stop Date Source Light Tobacco Smoker [facility] Tobacco smoking consumption [facility] Medical unknown Branch Medications Ordered Filled Start Stop Current Ordering Indication Dosage Frequency Signature Comments Components Source Medication Medication Date Date Medication? Clinician (SIG) Name Name LORazepam 2021-10 1mg 1 mg, Slow U nivers (ATIVAN) 0-31 10-31 IV Push, ity of injection 1 01:00: 01:21 ONCE[place] 1 [place] mg 00 :00 dose, On Medical Sun Branch 08/12/22 at 1999, STAT ondansetron 2021-10 No 4mg 4 mg, Slow Univers (ZOFRAN 0-31 10-31 IV Push, ity of (PF)) 01:00: 01:18 ONCE, 1 [place] injection 4 00 :00 dose, On Medi corona mg Sun Branch 08/12/22 at 1999, MARY NaCl 0.9% 2021-10- No 1000mL at 999 Uni vers (NS) bolus 0-31 10-31 mL/hr, ity of infusion 01:00: 02:49 1,000 mL, [place] as 1,000 mL 00 :00 IV Medical Infusion, Branch ONCE, 1 dose, On 08/12/22 at 1999, STAT ondansetron 2021-10 Yes [id number] 4mg Take 1 Univers 4 mg 0-30 tablet by ity of disintegrat 00:00: mouth [place] ing tablet 00 every 8 Medica l (eight) Branch hours as needed for Nausea and Vomiting (N/V). oxazepam 15 2021-10 Yes [id number] 15mg Take 1 Univers mg capsule 0-30 capsule by ity of 00:00: mouth in [place] 00 the Medical morning Branch and 1 capsule in the evening. ondansetron 2021-10 Yes [id number] 4mg Take 1 Univers 4 mg 0-30 tablet by ity of disintegrat 00:00: mouth [place] ing tablet 00 every 8 Medica l (eight) Branch hours as needed for Nausea and Vomiting (N/V). oxazepam 15 2021-10 Yes [id number] 15mg Take 1 Univers mg capsule 0-30 capsule by ity of 00:00: mouth in [place] 00 the Medical morning Branch and 1 capsule in the evening. ibuprofen 2021-2021- No [id number] 600mg Take 1 Univers 600 mg 8- 09-10 tablet by ity of tablet 00:00: 04:59 mouth [place] 00 :00 every 6 Medical (six) Branch hours as needed for Temp > 38.5 C for up to 14 days. ibuprofen 2021-2021- No [id number] 600mg Take 1 Univers 600 mg 8- 09-10 tablet by ity of tablet 00:00: 04:59 mouth [place] 00 :00 every 6 Medical (six) Branch hours as needed for Temp > 38.5 C for up to 14 days. ondansetron 2021- No [id number] 4mg Take 1 Univers (ZOFRAN) 4 06-08 tablet by ity of mg tablet 00:00: 04:59 mouth [place] 00 :00 every 8 Medical (eight) Branch hours as needed for Nausea and Vomiting (N/V) for up to 10 days. ondansetron 2021- No [id number] 4mg Take 1 Univers (ZOFRAN) 4 06-08 tablet by ity of mg tablet 00:00: 04:59 mouth [place] 00 :00 every 8 Medical (eight) Branch hours as needed for Nausea and Vomiting (N/V) for up to 10 days. sucralfate 2020- Yes [id number] 1g Take 1 U nivers 1 gram 2-01 tablet by ity of tablet 00:00: mouth [place] 00 before Medical meals and Branch at bedtime. ibuprofen 2020-1 Yes [id number] 600mg Take 1 U nivers 600 mg 2-01 tablet by ity of tablet 00:00: mouth [place] 00 every 6 Medical (six) Branch hours as needed for Pain (scale 4-6). sucralfate 2020-1 Yes [id number] 1g Take 1 U nivers 1 gram 2-01 tablet by ity of tablet 00:00: mouth [place] 00 before Medical meals and Branch at bedtime. ibuprofen 2020-1 Yes [id number] 600mg Take 1 U nivers 600 mg 2-01 tablet by ity of tablet 00:00: mouth [place] 00 every 6 Medical (six) Branch hours as needed for Pain (scale 4-6). sucralfate 2020-1 Yes [id number] 1g Take 1 U nivers 1 gram 2-01 tablet by ity of tablet 00:00: mouth [place] 00 before Medical meals and Branch at bedtime. ibuprofen 2020-1 Yes [id number] 600mg Take 1 U nivers 600 mg 2-01 tablet by ity of tablet 00:00: mouth [place] 00 every 6 Medical (six) Branch hours as needed for Pain (scale 4-6). sucralfate 2020-1 Yes [id number] 1g Take 1 U nivers 1 gram 2-01 tablet by ity of tablet 00:00: mouth 00 before Medical meals and Branch at bedtime. ibuprofen 2019-10 Yes [id number] 600mg Take 1 U nivers 600 mg 2-01 tablet by ity of tablet 00:00: mouth [place] 00 every 6 Medical (six) Branch hours [...] Immunizations Ordered Filled Immunization Date Status Comments [facility] e Immunization Name Name Hep B, Adol or Pedi 2001-10-30 Completed [facility] rsity of Dosage 00:00:00 [facility] Varicella 2001-10-30 Completed [facility] (varivax)(chicken 00:00:00 [facility] edical pox) [place] Vital Signs Vital Name Observation Time Observation Value Comments Source Systolic blood 2022-08-13 02:00:00 112 mm[Hg] Univer sity of pressure [facility] Diastolic blood 2022-08-13 02:00:00 76 mm[Hg] [facility] rsity of pressure [facility] Heart rate 2022-08-13 02:00:00 72 /min [facility] Respiratory rate 2022-08-13 02:00:00 21 /min [facility] Oxygen saturation in 2022-08-13 02:00:00 99 /min [facility] Arterial blood by [facility] Pulse oximetry Branch Body temperature 2022-08-12 23:38:00 37.39 Mer [facility] Body height 2022-08-12 23:38:00 157.5 cm [facility] Body weight 2022-08-12 23:38:00 67.132 [facility] BMI 2022-08-12 23:38:00 27.07 kg/m2 [facility] BP Diastolic 2021-05-11 00:00:00 72 mm[Hg] [facility] Height 2021-05-11 00:00:00 62 [in_i] [facility] BMI (Body Mass 2021-05-11 00:00:00 22.9 kg/m2 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) Group BP Systolic 2021-05-11 00:00:00 120 mm[Hg] [facility] Body Weight 2021-05-11 00:00:00 125 [lb_av] [facility] BP Diastolic 2019-04-27 00:00:00 80 mm[Hg] [facility] Height 2019-04-27 00:00:00 62 [in_i] [facility] BMI (Body Mass 2019-04-27 00:00:00 22.2 kg/m2 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) Group BP Systolic 2019-04-27 00:00:00 124 mm[Hg] [facility] Body Weight 2019-04-27 00:00:00 121.6 [lb_av] [facility] BP Diastolic 2019-04-13 00:00:00 82 mm[Hg] [facility] Height 2019-04-13 00:00:00 62 [in_i] [facility] BMI (Body Mass 2019-04-13 00:00:00 22.1 kg/m2 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) Group BP Systolic 2019-04-13 00:00:00 119 mm[Hg] [facility] Body Weight 2019-04-13 00:00:00 120.9 [lb_av] [facility] BP Diastolic 2019-03-10 00:00:00 82 mm[Hg] [facility] Height 2019-03-10 00:00:00 62 [in_i] [facility] BMI (Body Mass 2019-03-10 00:00:00 22.1 kg/m2 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) Group BP Systolic 2019-03-10 00:00:00 116 mm[Hg] [facility] Body Weight 2019-03-10 00:00:00 120.8 [lb_av] [facility] BP Diastolic 2018-11-27 00:00:00 74 mm[Hg] [facility] Height 2018-11-27 00:00:00 62 [in_i] [facility] BMI (Body Mass 2018-11-27 00:00:00 21.6 kg/m2 [facility] 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) Group BP Systolic 2018-11-27 00:00:00 118 mm[Hg] [facility] Body Weight 2018-11-27 00:00:00 118 [lb_av] [facility] Procedures Procedure Date / Time Performing Clinician Source Performed MEDICATION CORRESPONDENCE 2022-09-12 06:01:00 [facility] POCT TEST 2022-08-13 01:17:00 Gregory Hu[facility] LIPASE 2022-08-13 01:16:00 Gregory Huerta [facility] HEPATIC FUNCTION PANEL 2022-08-13 01:16:00 Gregory Huerta [facility] ([id number]) (ALB,T.PRO,BILI Medical Branch T,BU/BC,ALT,AST,ALK PHOS) BASIC METABOLIC PANEL 2022-08-13 01:16:00 Gregory Huerta [facility] (NA, K, CL, CO2, GLUCOSE, Medica l Branch BUN, CREATININE, CA) URINE DRUG (IMMUNOASSAY) 2022-08-13 01:16:00 Gregory Huerta [facility] DRUG Medical [facility] SCREEN CBC WITH DIFF 2022-08-13 01:16:00 Gregory Huerta [facility] URINALYSIS 2022-08-13 01:16:00 Gregory Huerta [facility] NOTICE OF PRIVACY 2022-08-12 23:23:56 Doctor Brittany, [facility] PRACTICES [place] [facility] CONSENT/REFUSAL FOR 2022-08-12 23:23:24 Doctor Brittany, [facility] DIAGNOSIS AND TREATMENT [place] [facility] [place] Tubal Ligation (Surg) 2019-04-15 00:00:00 [facility] Group Caesarean Section 2013-11-27 00:00:00 [place] [facility] Caesarean Section 2009-04-11 00:00:00 [place] [facility] Caesarean Section 2008-01-30 00:00:00 [facility] Plan of Care Planned Activity Planned Date Details Comments Source Diagnostic Test 2021-05-11 HIV (1+2) Ab [place] dical Pending 00:00:00 screen, serum [code Group = HIV (1+2) Ab screen, serum] Diagnostic Test 2021-05-11 RPR (rapid plasma [facility] Pending 00:00:00 reagin), serum Group [code = RPR (rapid plasma reagin), serum] Diagnostic Test 2021-05-11 HBsAg (hepatitis B [facility] [employer] [facility] Pending 00:00:00 surface Ag), serum Group [code = HBsAg (hepatitis B surface Ag), serum] Diagnostic Test 2021-05-11 CT + NG + TV, DNA, [facility] [employer] [facility] Pending 00:00:00 urine/swab [code = Group CT + NG + TV, DNA, urine/swab] Diagnostic Test 2021-05-11 bacterial vaginosis [facility] Pending 00:00:00 panel, vaginal Group [code = bacterial vaginosis panel, vaginal] Diagnostic Test 2021-05-11 urinalysis, [place] Me dical Pending 00:00:00 dipstick [code = Group urinalysis, dipstick] Encounters Start End Encounter Admission Attending Care Care Encounter Source Date/Time Date/Time Type Type Clinicians Facility Department ID 2022-09-12 2022-09-12 Orders Doctor JOSR [id number] Univers 00:00:00 00:00:00 Only Unassigned, JULIETH [id number] ity of [place] [facility] 4.2.7.2.686 [place] as [phone] [address] 2022-08-12 2022-08-12 Emergency X MIRACLE HUERTA ERT [id number] Univers 18:39:00 21:51:00 GREGORY cox [facility] 2022-08-12 2022-08-12 Emergency Bradley [facility] [id number] Univers 18:39:00 21:51:00 Gregory Ramirez [place] [id number] i ty of [place] 4[place]2.7.2.686 [place] [id number] [address] 2022-06-15 2022-06-15 Replacer Lab, Ang - Db [facility] 1.2.840.1 [id number] Univers 08:45:00 09:00:00 Visit Ellis Phipps [facility] [id number] ity [facility] 4.2.7.2.686 [place] VIKRAM?BLEA [id number] [place] [address] [address] MEDICAL OFFICE [facility] 2022-06-15 2022-06-15 Outpatient R DESIRE [facility] [id number] Univers 08:45:00 08:45:00 ELLIS dckana [facility] 2022-06-11 2022-06-11 [facility] [id number] Univers 00:00:00 00:00:00 Ellis [facility] [id number] it y [facility] 4.2.7.2.686 [place] VIKRAM?BLEA [id number] [place] [address] OFFICE [facility] 2022-06-11 2022-06-11 Telephone [facility] [id number] Univers 00:00:00 00:00:00 Ellis HEALTH [id number] it y of [facility] 4.2.7.2.686 [place] VIKRAM?BLEA [id number] [place] LOTT [address] [place] [address] OFFICE [facility] 2022-06-08 2022-06-08 Office [facility] [id number] Univers 15:00:00 17:02:12 Visit Ellis [facility] [id number] it y of [place] 4.2.7.2.686 [place] as VIKRAM?BLEA [id number] [place] [address] OFFICE [facility] 2022-06-08 2022-06-08 Outpatient R DESIRE [facility] [id number] Univers 15:00:00 17:02:12 ELLIS cox [facility] 2022-06-08 2022-06-08 Outpatient R DESIRE [facility] [id number] Univers 15:00:00 17:02:12 ELLIS cox [facility] 2022-06-08 2022-06-08 Outpatient R DESIRE [facility] [id number] Univers 15:00:00 15:00:00 ELLIS cox [facility] 2022-06-08 2022-06-08 Abstract Desire [facility] [id number] Univers 00:00:00 00:00:00 Ellis HEALTH 350.1.13.10 it y of [place] 4.2.7.2.686 [place] VIKRAM?BLEA [id number] [facility] [address] MEDICAL OFFICE [facility] 2021-11-09 2021-11-09 Telephone JOSR Guo [id number] Univers 00:00:00 00:00:00 Erica CLANCY 350.1.13.10 it y of [facility] 4.2.7.2.686 [place] [id number] [facility] [address] [place] 2021-11-08 2021-11-08 Laboratory Only, Ang Db Test [facility] 1.2.8 40.114 [id number] Univers 09:30:00 09:45:00 Only ByronTonja 350.1.13.10 ity of [place] 4.2.7.2.686 [place] VIKRAM?BLEA [id number] [facility] [address] [facility] OFFICE [facility] 2021-11-08 2021-11-08 Outpatient R BYRON [facility] [id number] Univers 09:30:00 09:30:00 TONJA ity [facility] 2021-11-08 2021-11-08 Orders Doctor OVALLES [id number] [id number] Univers 00:00:00 00:00:00 Only UnassignedJULIETH 350.1.13.10 ity of [place] [facility] 4.2.7.2.686 [place] as [id number] [facility] [address] [place] 2021-06-16 2021-06-16 Letter JOSR Nuno 1.2.840.114 [id number] Univers 00:00:00 00:00:00 (Out) Cheryl CLANCY 350.1.13.10 it y of [facility] 4.2.7.2.686 [place] [id number] [facility] 019 Branch 2021-06-15 2021-06-15 Laboratory Only, Ang Db Test [facility] 1.2.8 40.114 [id number] Univers 09:21:19 09:31:19 Only Alannah Cardenas [employer] 350.1.13.10 ity of [place] 4.2.7.2.686 [place] Vikram?Blea [id number] [address] Medical Office Building 2021-06-15 2021-06-15 Letter Ronald [facility] 1.2.840.114 [id number] Univers 00:00:00 00:00:00 (Out) Alannah [facility] [id number] it y of [place] 4.2.7.2.686 [place] Vikram?Blea [id number] [address] Office [facility] 2021-05-11 2021-05-11 Lucia Dawson [facility] [place] [place] [place] - [address] [place] 00:00:00 00:00:00 Discovery Maria Alejandra 0729 da [facility]: [address], [place] [address] , Ph. [phone] 2020-09-13 2020-09-13 Emergency [facility] [id number] Univers 13:19:00 15:18:00 Gómez [place] 350.1.13.10 i ty of [place] 4[place]2.7.2.686 [place] [id number] [facility] 084 Branch 2020-09-13 2020-09-13 Emergency X [facility] ERT [id number] Univers 13:19:00 15:18:00 GÓMEZ cox [facility] 2020-08-31 2020-08-31 Outpatient Evelyn [facility] [id number] [place] 02:20:00 02:20:00 1118 [facility] 2019-04-27 2019-04-27 Erickson [facility] [place] - [address] [place] 00:00:00 00:00:00 Discovery Antonette 0715 rian MD: [address] [place] [phone] , Ph. [phone] 2019-04-15 2019-04-15 [place] - [address] [place] 00:00:00 00:00:00 Discovery Antonette 0703 da MD: [address] [place] [phone] , Ph. [phone] 2019-04-13 2019-04-13 [place] - [address] [place] 00:00:00 00:00:00 Discovery Antonette 0701 rian MD: [address] [place] [phone] , Ph. [phone] 2019-03-10 2019-03-10 [place] - [address] [place] 00:00:00 00:00:00 Discovery Antonette 0528 rian MD: [address] [place] [phone] , Ph. [phone] 2018-11-27 2018-11-27 [place] - [address] [place] 00:00:00 00:00:00 Discovery Antonette 0214 da MD: [address] [place] [phone] , Ph. [phone] Results Test Description Test Time Test Comments Results Result Comments Source BASIC METABOLIC PANEL (NA, K, CL, CO2, GLUCOSE, BUN, 2022-07 01:38:30 CREATININE, CA) Test Item Value Reference Range Interpretation Comme nts NA (test code = 7906106133) 141 mmol/L 135-145 K (test code = 3363306760) 3.7 mmol/L 3.5-5.0 CL (test code = 8251875584) 103 mmol/L 98-108 CO2 TOTAL (test code = 29 mmol/L - 5544898269) AGAP (test code = 3251073115) 2-16 BUN (test code = 5582387044) 11 mg/dL 7-23 GLUCOSE (test code = 9621799451) 98 mg/dL 70-110 CREATININE (test code = 0.63 mg/dL 0.50-1.04 8708906916) CALCIUM (test code = 6496080323) 9.2 mg/dL 8.6-10.6 eGFR (test code = 5814494961) mL/min/1.73m2 KHADIJAH (test code = KHADIJAH) Association of Glomerular Filtration Rate (GFR) and Staging of Kidney Disease* + +--------- + ----+| GFR (mL/min/1.73 m2) ?| With Kidney Damage ?| ?Without Kidney Damage+ +--- + +| ?>90 ?| ?Stage one ?| ? Normal ?+ +-------- + -----+| ?60-89 ?| ?Stage two ?| ? Decreased GFR ? + +--------- + ----+| ?30-59 ?| ?Stage three ?| ? Stage three ? + +--------- + ----+| ?15-29 ?| ?Stage four ? | ? Stage four ?+ +-------- + -----+| ?<15 (or dialysis) ? ?| ?Stage five ? | ? Stage five ?+ +-------- + -----+ *Each stage assumes the associated GFR level [...] or urine or abnormalities in imaging tests). [facility] (ALB,T.PRO,BILI T,BU/BC,ALT,AST,ALK PHOS)2022-08-13 01:38:30 Test Item Value Reference Range Interpretation Comments TOTAL BILI (test code = 3190093271) 0.8 mg/dL 0.1-1.1 BILI UNCON (test code = 4851827706) 0.6 mg/dL 0.1-1.1 BILI CONJ (test code = 5648427673) 0.0 mg/dL 0.0-0.3 T PROTEIN (test code = 5157616230) 7.7 g/dL 6.3-8.2 ALBUMIN (test code = 3979537164) 4.6 g/dL 3.5-5.0 ALK PHOS (test code = 8559498757) 70 U/L 34-122 ALTv (test code = 1742-6) 19 U/L 5-35 AST(SGOT) (test code = 6551993085) 24 U/L 13-40 Lab Interpretation (test code = Normal 20227-5) [facility]22[facility] 01:38:30 Test Item Value Reference Range Interpretation Comments LIPASE (test code = 7276449847) 30 U/L 0-220 Lab Interpretation (test code = Normal 73510-9) [facility] WITH [id number] 01:27:14 Test Item Value Reference Range Interpretation Comments WBC (test code = See_Comment [Automated 90-2) message] The sy stem which generated this result transmitted reference range : 4.30 - 11.10 10*3/?L. The reference range was not used to interpret this result as normal/abnormal . RBC (test code = See_Comment [Automated 269-8) message] The sy stem which generated this result transmitted reference range : 3.93 - 5.25 10*6/?L. The reference range was not used to interpret this result as normal/abnormal . HGB (test code = 13.5 g/dL 11.6-15.0 718-7) HCT (test code = 38.0 % 35.7-45.2 4544-3) MCV (test code = 93.1 fL 80.6-95.5 787-2) MCH (test code = 33.1 pg 25.9-32.8 H 785-6) MCHC (test code = 35.5 g/dL 31.6-35.1 H 786-4) RDW-SD (test code = 38.4 fL 39.0-49.9 L 31373-1) RDW-CV (test code = 11.4 % 12.0-15.5 L 788-0) PLT (test code = See_Comment [Automated 777-3) message] The sy stem which generated this result transmitted reference range : 166 - 358 10*3/ ?L. The reference r mirna was not used to interpret this result as normal/abnormal . MPV (test code = 9.4 fL 9.5-12.9 L 63425-7) NRBC/100 WBC (test See_Comment [Automat ed code = 3156310613) message] The system which generated this result transmitted reference range : 0.0 - 10.0 /100 WBCs. The refer ence range was not u sed to interpret th is result as normal/abnormal . NRBC x10^3 (test code See_Comment [Auto mated = 6406049726) message] The s ystem which generated this result transmitted reference range : 10*3/?L. The reference range was not used to interpret this result as normal/abnormal . GRAN MAT (NEUT) % 61.5 % (test code = 770-8) IMM GRAN % (test code 0.30 % = 7995683285) LYMPH % (test code = 29.1 % 736-9) MONO % (test code = 8.4 % 5905-5) EOS % (test code = 0.3 % 713-8) BASO % (test code = 0.4 % 706-2) GRAN MAT x10^3(ANC) 4.90 10*3/uL 1.88-7.09 (test code = 2708120861) IMM GRAN x10^3 (test 0.00-0.06 code = 1670689214) LYMPH x10^3 (test code 2.31 10*3/uL 1.32-3.29 = 731-0) MONO x10^3 (test code 0.67 10*3/uL 0.33-0.92 = 742-7) EOS x10^3 (test code = 0.03-0.39 L 711-2) BASO x10^3 (test code 0.03 10*3/uL 0.01-0.07 = 704-7) Lab Interpretation Abnormal (test code = 87324-6) [facility] [id number] 01:17:00 Test Item Value Reference Range Interpretation Comments POCT PREG (test code = 1605) Negative On board controls acceptable with Present C Line (test code = 3574) POCT PREG LOT # (test code = 3575) [id number] POCT PREG TEST DATE (test 12-12-2023 code = 3576) Lab Interpretation (test code = Normal 00692-0) [facility] - Urine 2021-05-11 11:11:00 Test Item Value Reference Range Interpretation Comments Leukocytes (test code = Leukocytes) Negative Nitrite (test code = Nitrite) negative Urobilinogen (test code = .2 Urobilinogen) Protein (test code = Protein) Negative pH (test code = pH) 6.5 Blood (test code = Blood) Negative Specific [place] (test code = 1.020 Specific [place]) Ketone (test code = Ketone) Negative Bilirubin (test code = Bilirubin) Negative Glucose (test code = Glucose) Negative Appearance (test code = Appearance) Clear Color (test code = Color) Yellow [facility] - [id number] 10:20:03 Test Item Value Reference Range Interpretation Comments Leukocytes (test code = Leukocytes) Negative Nitrite (test code = Nitrite) negative Urobilinogen (test code = .2 Urobilinogen) Protein (test code = Protein) Trace pH (test code = pH) 5.5 Blood (test code = Blood) Negative Specific [place] (test code = 1.030 Specific [place]) Ketone (test code = Ketone) Negative Bilirubin (test code = Bilirubin) Negative Glucose (test code = Glucose) Negative Appearance (test code = Appearance) Clear Color (test code = Color) Yellow [facility] (dipstick) panel - [id number] 10:35:45 Test Item Value Reference Range Interpretation Comments Leukocytes (test code = Leukocytes) Negative Nitrite (test code = Nitrite) negative Urobilinogen (test code = .2 Urobilinogen) Protein (test code = Protein) Trace pH (test code = pH) 7.0 Blood (test code = Blood) Large Specific [place] (test code = 1.030 Specific [place]) Ketone (test code = Ketone) Negative Bilirubin (test code = Bilirubin) Negative Glucose (test code = Glucose) Negative Appearance (test code = Appearance) Clear Color (test code = Color) [place] [facility] macro (dipstick) panel - [id number] 10:35:45 Test Item Value Reference Range Interpretation Comments Leukocytes (test code = Leukocytes) Negative Nitrite (test code = Nitrite) negative Urobilinogen (test code = .2 Urobilinogen) Protein (test code = Protein) Trace pH (test code = pH) 7.0 Blood (test code = Blood) Large Specific [place] (test code = 1.030 Specific [place]) Ketone (test code = Ketone) Negative Bilirubin (test code = Bilirubin) Negative Glucose (test code = Glucose) Negative Appearance (test code = Appearance) Clear Color (test code = Color) [place] [facility], [id number] 10:18:02 Test Item Value Reference Range Interpretation Comments Test (test code = negative Test) [facility], [id number] 10:18:02 Test Item Value Reference Range Interpretation Comments Test (test code = negative Test) [facility] CenterCB W Auto Differential panel - [id number] 10:07:00 Test Item Value Reference Range Interpretation Comments white blood count (test code = 6.4 K/uL 4.0-11.5 white blood count) red blood count (test code = red 4.42 M/uL 3.80-5.20 blood count) hemoglobin (test code = 13.8 g/dL 10.5-15.7 hemoglobin) hematocrit (test code = 43.3 % 34.0-50.0 hematocrit) Erythrocyte mean corpuscular 98.0 fL 86-100 volume [Entitic volume] (test code = 43691-0) Erythrocyte mean corpuscular 31.2 pg 26.2-33.4 hemoglobin [Entitic mass] (test code = 54780-7) mean corpuscular HGB conc (test 31.9 g/dL 30-34 code = mean corpuscular HGB conc) red cell distribution width (test 11.9 % 12.0-15.5 L code = red cell distribution width) platelet count (test code = 276 K/uL 165-450 platelet count) mean platelet volume (test code = 9.1 fL 9.4-12.6 L mean platelet volume) Neutrophils.segmented/100 63.4 % 44.4-80.1 leukocytes in Blood (test code = 86287-9) Ig% (test code = Ig%) 0.2 % 0.0-0.4 lymphocyte% (test code = 25.9 % 10.0-50.0 lymphocyte%) Monocytes/100 leukocytes in Blood 9.0 % 3.6-12.0 by Automated count (test code = 5905-5) Eosinophils/100 leukocytes in 1.2 % 0.0-5.4 Blood by Automated count (test code = 713-8) Basophils/100 leukocytes in 0.3 % 0.1-1.2 Unspecified specimen (test code = 31930-5) absolute neutrophil count (test 4.06 K/uL 1.56-6.13 code = absolute neutrophil count) Ig# (test code = Ig#) 0.0 K/uL 0.0-0.03 Lymphocytes [#/volume] in 1.7 K/uL 1.18-3.74 Unspecified specimen by Automated count (test code = 58897-6) mono # (test code = mono #) 0.58 K/uL 0.24-0.86 eos # (test code = eos #) 0.08 K/uL 0.04-0.36 basophil # (test code = basophil 0.02 K/uL 0.01-0.08 #) NRBC% (test code = NRBC%) 0 /100 WBC 0-0.2 NRBC# (test code = NRBC#) 0 K/uL [facility], [id number] 15:26:00 Test Item Value Reference Range Interpretation Comments Test (test code = negative Test) [facility] macro (dipstick) panel - [id number] 15:26:00 Test Item Value Reference Range Interpretation Comments Leukocytes (test code = Leukocytes) Trace Nitrite (test code = Nitrite) negative Urobilinogen (test code = .2 Urobilinogen) Protein (test code = Protein) Negative pH (test code = pH) 6.5 Blood (test code = Blood) Negative Specific [place] (test code = 1.030 Specific [place]) Ketone (test code = Ketone) Negative Bilirubin (test code = Bilirubin) Negative Glucose (test code = Glucose) Negative Appearance (test code = Appearance) Clear Color (test code = Color) Yellow [facility] CenterChoriogonadotropin.beta subunit [Units/volume] in Serum or [id number] 01:50:00 Test Item Value Reference Range Interpretation Comments HCG quantitative (test code = HCG 0.1 mIU/mL 0-5 quantitative) [facility]"
[2022-12-09] MEDS ORDERED: ONDANSETRON 4 MG (ODT) TAB ONE (12:30)
[2022-12-09 12:40] LABS: Urine Blood Trace-intact (Negative); Urine Glucose Negative (Negative); Urine Protein 2+ (Negative); Urine Specific Gravity 1.015 (1.005-1.030); Urine pH 8.5 (5.0-7.0)
[2022-12-09 12:54] LABS: Urine Specific Gravity/Preg 1.015 (1.005-1.030)
[2022-12-09 13:16] LABS: SARS-COV-2 RT PCR NEGATIVE (NEGATIVE)
--- NOTE | 2022-12-09 13:26 | ER ---
Nurse's Notes [facility] Name: Josee Anthony Age: 32 yrs Sex: Female : 1990 Arrival Date: 12/09/2022 Time: 12:14 Bed 12 Private MD: Diagnosis: Acute upper respiratory infection, unspecified Presentation: 12/09 12:19 Chief complaint: Sore throat, nausea, sinus congestion, and dry cough x 3 days, vomit x hb 2 this morning. Coronavirus screen: Client presents with at least one sign or symptom that may indicate coronavirus-19. Standard/surgical mask placed on the client. Provider contacted for isolation considerations. Ebola Screen: No symptoms or risks identified at this time. Initial Sepsis Screen: Does the patient meet any 2 criteria? No. Patient's initial sepsis screen is negative. Does the patient have a suspected source of infection? No. Patient's initial sepsis screen is negative. Risk Assessment: Do you want to hurt yourself or someone else? Patient reports no desire to harm self or others. Onset of symptoms was December 06, 2022. 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 - Social history:: Smoking status: Patient denies any tobacco usage or history of. Screenin:29 [facility] ED Fall Risk Assessment (Adult) Score/Fall Risk Level 0 - 2 = Low Risk. Abuse eh3 screen: Denies threats or abuse. Denies injuries from another. Nutritional screening: No deficits noted. Tuberculosis screening: No symptoms or risk factors identified. Assessment: 12:29 General: Appears in no apparent distress. uncomfortable, Behavior is calm, cooperative, eh3 appropriate for age. Pain: Complains of pain in throat. Neuro: Level of Consciousness is awake, alert, obeys commands, Oriented to person, place, time, situation. Cardiovascular: Capillary refill < 3 seconds Patient's skin is warm and dry. Respiratory: Reports cough that is dry, pain with cough Airway is patent Respiratory effort is even, unlabored, Respiratory pattern is regular, symmetrical, Breath sounds are coarse bilaterally. GI: Abdomen is round non-distended, Bowel sounds present X 4 quads. Reports intolerance of fluids, intolerance of food, nausea, vomiting. : No signs and/or symptoms were reported regarding the genitourinary system. EENT: Throat is reddened. Derm: Skin is pink, warm \T\ dry. Musculoskeletal: Circulation, motion, and sensation intact. Range of motion: intact in all extremities. 13:17 Reassessment: Patient appears in no apparent distress at this time. Patient and/or eh3 family updated on plan of care and expected duration. Pain level reassessed. Patient is alert, oriented x 3, equal unlabored respirations, skin warm/dry/pink. Vital Signs: 12:19 BP 123 / 82; Pulse 94; Resp 18; Temp 97.7; Pulse Ox 100% on R/A; Weight 63.5 kg; Height hb 5 ft. 2 in. (157.48 cm); Pain 5/10; 13:17 BP 117 / 71; Pulse 90; Resp 18; Temp 98.5(O); Pulse Ox 99% ; eh3 12:19 Body Mass Index 25.61 (63.50 kg, 157.48 cm) hb ED Course: 12:14 Patient arrived in ED. rg4 12:18 Jessica Lilly FNP-C is [facility]. kb 12:18 Nicolas Mccarthy MD is Attending Physician. kb 12:20 Triage completed. hb 12:20 Arm band placed on. hb 12:21 Mariela Luna, RN is Primary Nurse. eh3 12:29 Patient has correct armband on for positive identification. Bed in low position. Call 3 light in reach. Side rails up X 1. Adult w/ patient. Pulse ox on. NIBP on. Door closed. Noise minimized. Lights dimmed. Warm blanket given. 12:29 COVID-19/FLU A+B Sent. eh3 12:29 Strep Sent. eh3 13:27 Urine --Ancillary (enter results) Sent. eh3 13:35 Diet: Patient given snack. Patient given water. Tolerated well. eh3 13:35 No provider procedures requiring assistance completed. Patient did not have IV access 3 during this emergency room visit. Administered Medications: 12:29 Drug: Zofran (Ondansetron) 4 mg Route: PO; eh3 13:27 Follow up: Response: Nausea is decreased eh3 Medication: 13:35 VIS not applicable for this client. eh3 Outcome: 13:26 Discharge ordered by . isai 13:35 Discharged to home ambulatory, with significant other. eh3 13:35 Condition: stable 13:35 Discharge instructions given to patient, significant other, Instructed on discharge instructions, follow up and referral plans. medication usage, Demonstrated understanding of instructions, follow-up care, medications, Prescriptions given X 1. 13:41 Patient left the ED. 3 Signatures: Jessica Lilly, RUNWAY MODEL-C RUNWAY MODEL-CkSerena Diallo, RN RN Monse Marinelli 4 Mariela Luna, CAMILA RN 3 Corrections: (The following items were deleted from the chart) 12:21 12:19 BP 123 / 82; Pulse 94bpm; Resp 18bpm; Pulse Ox 100% RA; Temp 97.7F; hb hb
--- NOTE | 2022-12-09 13:26 | EDPHYS ---
Physician Documentation [facility] Name: Josee Anthony Age: 32 yrs Sex: Female : 1990 Arrival Date: 12/09/2022 Time: 12:14 Bed 12 Private MD: ED Physician Nicolas Mccarthy HPI: 12/09 14:34 This 32 yrs old Female presents to ER via Ambulatory with complaints of Cough, Sore kb Throat. 14:34 The patient or guardian reports cough, that is intermittent, described as mild. Onset: kb The symptoms/episode began/occurred 3 day(s) ago. Severity of symptoms: At their worst the symptoms were mild, in the emergency department the symptoms are unchanged. Modifying factors: The symptoms are alleviated by nothing, the symptoms are aggravated by nothing. Associated signs and symptoms: Pertinent positives: nausea, rhinorrhea, sore throat, vomiting. The patient has not experienced similar symptoms in the past. The patient has not recently seen a physician. 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 - Social history:: Smoking status: Patient denies any tobacco usage or history of. ROS: 14:34 Constitutional: Negative for fever, chills, and weight loss. kb 14:34 ENT: Positive for rhinorrhea, sinus congestion, sore throat. 14:34 Respiratory: Positive for cough. 14:34 Abdomen/GI: Positive for nausea and vomiting, Negative for abdominal pain, diarrhea. 14:34 All other systems are negative. Exam: 14:34 Constitutional: This is a well developed, well nourished patient who is awake, alert, kb and in no acute distress. Head/Face: Normocephalic, atraumatic. ENT: Moist Mucous membranes Cardiovascular: Regular rate and rhythm with a normal S1 and S2. No gallops, murmurs, or rubs. No pulse deficits. Respiratory: Respirations even and unlabored. No increased work of breathing. Talking in full sentences Abdomen/GI: Soft, non-tender. No distention Skin: Warm, dry with normal turgor. Normal color. MS/ Extremity: Pulses equal, no cyanosis. Neurovascular intact. Full, normal range of motion. Neuro: Awake and alert, GCS 15, oriented to person, place, time, and situation. Moves all extremities. Normal gait. Vital Signs: 12:19 BP 123 / 82; Pulse 94; Resp 18; Temp 97.7; Pulse Ox 100% on R/A; Weight 63.5 kg; Height hb 5 ft. 2 in. (157.48 cm); Pain 5/10; 13:17 BP 117 / 71; Pulse 90; Resp 18; Temp 98.5(O); Pulse Ox 99% ; eh3 12:19 Body Mass Index 25.61 (63.50 kg, 157.48 cm) hb MDM: 12:18 Patient medically screened. kb 14:35 Differential Diagnosis: Other Strep, flu, COVID, URI, pharyngitis, laryngitis. Data kb reviewed: vital signs, nurses notes. Counseling: I had a detailed discussion with the patient and/or guardian regarding: the historical points, exam findings, and any diagnostic results supporting the discharge/admit diagnosis, lab results, the need for outpatient follow up, a family practitioner, to return to the emergency department if symptoms worsen or persist or if there are any questions or concerns that arise at home. ED course: Patient is a 32-year-old female who presents with cough congestion sore throat that started 3 days ago. Denies fever. States she had an episode of vomiting this morning. On exam patient has a black discoloration to tongue but otherwise normal. States she drank wine and her tongue is stained from that.. Flu, COVID, and strep test negative. Patient nontoxic in appearance and tolerating p.o. intake after Zofran. Patient educated on return precautions and need for follow-up with PCP. Verbal understanding received. Patient in agreement with plan of care.. 12/09 12:18 Order name: Strep 12/09 12:18 Order name: COVID-19/FLU A+B 12/09 12:40 Order name: Urine Dipstick-Ancillary; Complete Time: 12:41 [facility] 12/09 12:40 Order name: Urine --Ancillary (enter results) eb 12/09 12:48 Order name: Group A Streptococcus Rapid Sc [facility] 12/09 12:54 Order name: Urine --Ancillary [facility] 12/09 12:21 Order name: Urine Dipstick-Ancillary (obtain specimen); Complete Time: 12:41 kb 12/09 13:16 Order name: COVID-19/FLU A+B EDMS 12/09 13:23 Order name: PO challenge; Complete Time: 13:35 kb Administered Medications: 12:29 Drug: Zofran (Ondansetron) 4 mg Route: PO; eh3 13:27 Follow up: Response: Nausea is decreased eh3 Disposition Summary: 12/09/22 13:26 Discharge Ordered Location: Home kb Condition: Stable kb Diagnosis - Acute upper respiratory infection, unspecified kb Followup: kb - With: Emergency Department - When: As needed - Reason: Worsening of condition Followup: kb - With: Private Physician - When: 2 - 3 days - Reason: Recheck today's complaints, Continuance of care, Re-evaluation by your physician Discharge Instructions: - Discharge Summary Sheet kb - Upper Respiratory Infection, Adult, [id number] kb - Viral Respiratory Infection, [id number] kb Forms: - Medication Reconciliation Form kb - Thank You Letter kb - Antibiotic Education kb - Prescription Opioid Use kb Prescriptions: - ondansetron 4 mg Oral - take 1 tablet by SUBLINGUAL route every 8 hours As needed; 15 tablet; Refills: kb 0, Product Selection Permitted Addendum: 12/11/2022 07:12 Co-signature as Attending Physician, Nicolas Mccarthy MD I reviewed the patient's care r n provided by the Advanced Practice Provider and agree with the diagnosis and treatment plan. Signatures: Dispatcher [employer] Jessica Aparicio, HOME HEALTH SCHEDULER-C HOME HEALTH SCHEDULER-Ckb Nicolas Mccarthy MD MD rn Baxter, Heather, RN CAMILA Mariela Luna RN RN 3
[2022-12-09 14:03] VITALS: BP 117/71; TEMP 98.5; O2SAT 99
== END 2022-12-09 13:41 | disposition home or self-care (01) ==
LOC: ER 12:10
DX: J06.9 Acute upper respiratory infection, unspecified (principal); Z20.822 Contact with and (suspected) exposure to COVID-19
CPT/HCPCS: 87070; 81025; 87081; 81003; 0240U; 99284; Q0162

== ENCOUNTER 2023-02-19 19:12 | Emergency (ER) | payer OTHER ==
--- OUTSIDE RECORDS SUMMARY | 2023-02-19 19:16 | XMS REPORT | Continuity of Care Document ---
:1990 Author Organization [facility] t Address [address] [place] [address] [place] [id number] Care Team Providers Name Role Phone Ellis Jacome Primary Care Physician Doctor Unassigned, [place] Attending Clinician Unavailable GREGORY HUERTA Attending Clinician [...] Type Policy Number Effective Date Expiration Date [facility] [id number] 2013 CHOICE (MEDICAID 00:00:00 REPLACEMENT - HMO) [...] [place] type d type 00 [facility] Branch Acute Acute Disease Active Univers nonintract nonintract 06-08 it y of able able 00:00: [place] headache, headache, [facility] unspecifie unspecifie Br anch d headache d headache type type 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 3-04 da 00:00: Medical Group Dysmenorrh Dysmenorrh Problem Active M atagor ea ea 2-23 da 00:00: Medical Group Menorrhagi Menorrhagi Problem Active M atagor a a 2-23 da 00:00: Medical Group Sterilizat Sterilizat Problem Active M atagor ion ion 2-23 da requested Requested 00:00: [facility] 00 Group Allergies, Adverse Reactions, Alerts Allergy Allergy Status Severity Reaction(s) Onset Inactive Treating Comm ents Source Name Type Date Date Clinician Mushroom Drug Active Hives Univers Allergy 7-29 ity of 00:00: [place] [facility] MUSHROOM DRUG Active Med Hives Univers INGREDI 7-29 ity of 00:00: [place] [facility] Mushroom Allergy Active Moderate Hives [place] to 7-29 da substanc 00:00: Medical e 00 Group Social History Social Habit Start Date Stop Date Quantity Comments Source Exposure to 2022-08-02 2022-08-12 Not sure [facility] SARS-CoV-2 (event) 00:00:00 18:37:00 Medica l Branch Sex Assigned At [birth year] [facility] [place] 00:00:00 00:00:00 Medical Branch Smoking Status Start Date Stop Date Source Light Tobacco Smoker [facility] Tobacco smoking consumption [facility] Medical unknown Branch Medications Ordered Filled [...] 08/12/22 at 1999, STAT ondansetron 2021-10 Yes [id number] 4mg Take 1 Univers 4 mg 0-30 tablet by ity of disintegrat 00:00: mouth [place] ing tablet 00 every 8 Medica l (eight) Branch hours as needed for Nausea and Vomiting (N/V). oxazepam 15 2021-10 Yes [id number] 15mg Take 1 Univers mg capsule 0-30 capsule by ity of 00:00: mouth in [place] 00 the Medical morning Branch and 1 capsule in the evening. ondansetron 2021-10 Yes [id number] 4mg Take 1 Univers 4 mg 0-30 tablet by ity of disintegrat 00:00: mouth [place] ing tablet 00 every 8 Medica l (eight) Branch hours as needed for Nausea and Vomiting (N/V). oxazepam 15 2021-10 Yes [id number] 15mg Take 1 Univers mg capsule 0-30 capsule by ity of 00:00: mouth in [place] 00 the Medical morning Branch and 1 capsule in the evening. ibuprofen 2021-2021- No [id number] 600mg Take 1 Univers 600 mg 8- 09-10 tablet by ity of tablet 00:00: 04:59 mouth [place] 00 :00 every 6 Medical (six) Branch hours as needed for Temp > 38.5 C for up to 14 days. ibuprofen 2021-2021- No [id number] 600mg Take 1 Univers 600 mg 8- 09-10 tablet by ity of tablet 00:00: 04:59 mouth [place] 00 :00 every 6 Medical (six) Branch hours as needed for Temp > 38.5 C for up to 14 days. ondansetron 2021- No [id number] 4mg Take 1 Univers (ZOFRAN) 4 06-08 tablet by ity of mg tablet 00:00: 04:59 mouth [place] 00 :00 every 8 Medical (eight) Branch hours as needed for Nausea and Vomiting (N/V) for up to 10 days. ondansetron 2021- No [id number] 4mg Take 1 Univers (ZOFRAN) 4 06-08 tablet by ity of mg tablet 00:00: 04:59 mouth [place] 00 :00 every 8 Medical (eight) Branch hours as needed for Nausea and Vomiting (N/V) for up to 10 days. sucralfate 2020- Yes [id number] 1g Take 1 U nivers 1 gram 2-01 tablet by ity of tablet 00:00: mouth [place] 00 before Medical meals and Branch at bedtime. ibuprofen 2020-1 Yes [id number] 600mg Take 1 U nivers 600 mg 2-01 tablet by ity of tablet 00:00: mouth [place] 00 every 6 Medical (six) Branch hours as needed for Pain (scale 4-6). sucralfate 2020-1 Yes [id number] 1g Take 1 U nivers 1 gram 2-01 tablet by ity of tablet 00:00: mouth [place] 00 before Medical meals and Branch at bedtime. ibuprofen 2020-1 Yes [id number] 600mg Take 1 U nivers 600 mg 2-01 tablet by ity of tablet 00:00: mouth [place] 00 every 6 Medical (six) Branch hours as needed for Pain (scale 4-6). sucralfate 2020-1 Yes [id number] 1g Take 1 U nivers 1 gram 2-01 tablet by ity of tablet 00:00: mouth [place] 00 before Medical meals and Branch at bedtime. ibuprofen 2020-1 Yes [id number] 600mg Take 1 U nivers 600 mg 2-01 tablet by ity of tablet 00:00: mouth [place] 00 every 6 Medical (six) Branch hours as needed for Pain (scale 4-6). sucralfate 2020-1 Yes [id number] 1g Take 1 U nivers 1 gram 2-01 tablet by ity of tablet 00:00: mouth 00 before Medical meals and Branch at bedtime. ibuprofen 2019-10 Yes [id number] 600mg Take 1 U nivers 600 mg [...] Immunizations Ordered Filled Immunization Date Status Comments [facility] e Immunization Name Name Hep B, Adol or Pedi 2001-10-30 [facility] Varicella 2001-10-30 Completed [facility] (varivax)(chicken 00:00:00 [facility] [place] [facility] edical pox) [facility] Vital Signs Vital Name Observation Time Observation Value Comments Source Systolic blood 2022-08-13 02:00:00 112 mm[Hg] Univer sity of pressure [facility] Diastolic blood 2022-08-13 02:00:00 76 mm[Hg] [facility] Heart rate 2022-08-13 02:00:00 72 /min [facility] Respiratory rate 2022-08-13 02:00:00 21 /min [facility] Oxygen saturation in 2022-08-13 02:00:00 99 /min [facility] Arterial blood by [facility] Pulse oximetry Branch Body temperature 2022-08-12 23:38:00 37.39 Mer [facility] Body height 2022-08-12 23:38:00 157.5 cm [facility] Body weight 2022-08-12 23:38:00 67.132 kg [facility] BMI 2022-08-12 23:38:00 27.07 kg/m2 [facility] BP Diastolic 2021-05-11 00:00:00 72 mm[Hg] [facility] Height 2021-05-11 00:00:00 62 [in_i] [facility] BMI (Body Mass 2021-05-11 00:00:00 22.9 kg/m2 [facility] Group BP Systolic 2021-05-11 00:00:00 120 mm[Hg] [facility] Body Weight 2021-05-11 00:00:00 125 [lb_av] [facility] BP Diastolic 2019-04-27 00:00:00 80 mm[Hg] [facility] Height 2019-04-27 00:00:00 62 [in_i] [facility] BMI (Body Mass 2019-04-27 00:00:00 22.2 kg/m2 [facility] BP Systolic 2019-04-27 00:00:00 124 mm[Hg] [facility] Body Weight 2019-04-27 00:00:00 121.6 [lb_av] [facility] BP Diastolic 2019-04-13 00:00:00 82 mm[Hg] [facility] Height 2019-04-13 00:00:00 62 [in_i] [facility] BMI (Body Mass 2019-04-13 00:00:00 22.1 kg/m2 [facility] BP Systolic 2019-04-13 00:00:00 119 mm[Hg] [facility] Body Weight 2019-04-13 00:00:00 120.9 [lb_av] [facility] BP Diastolic 2019-03-10 00:00:00 82 mm[Hg] [facility] Height 2019-03-10 00:00:00 62 [in_i] [facility] BMI (Body Mass 2019-03-10 00:00:00 22.1 kg/m2 [facility] BP Systolic 2019-03-10 00:00:00 116 mm[Hg] [facility] Body Weight 2019-03-10 00:00:00 120.8 [lb_av] [facility] BP Diastolic 2018-11-27 00:00:00 74 mm[Hg] [facility] Height 2018-11-27 00:00:00 62 [in_i] [facility] BMI (Body Mass 2018-11-27 00:00:00 21.6 kg/m2 [facility] medical artist Medical Index) Group BP Systolic 2018-11-27 00:00:00 118 mm[Hg] [facility] Body Weight 2018-11-27 00:00:00 118 [lb_av] [facility] Procedures Procedure Date / Time Performing Clinician Source Performed MEDICATION CORRESPONDENCE 2022-09-12 06:01:[facility] POCT TEST 2022-08-13 01:17:00 Gregory Huerta [facility] LIPASE 2022-08-13 01:16:00 Gregory Huerta [facility] HEPATIC FUNCTION PANEL 2022-08-13 01:16:00 Gregory Huerta [facility] ([id number]) (ALB,T.PRO,BILI Medical Branch T,BU/BC,ALT,AST,ALK PHOS) BASIC METABOLIC PANEL 2022-08-13 01:16:00 Gregory Huerta [facility] (NA, K, CL, CO2, GLUCOSE, Medica l Branch BUN, CREATININE, CA) URINE DRUG (IMMUNOASSAY) 2022-08-13 01:16:00 Gregory Huerta [facility] DRUG Medical [facility] SCREEN CBC WITH DIFF 2022-08-13 01:16:00 Gregory Huerta [facility] URINALYSIS 2022-08-13 01:16:00 Gregory Huerta [facility] NOTICE OF PRIVACY 2022-08-12 23:23:56 Doctor Brittany, [facility] PRACTICES [place] [facility] CONSENT/REFUSAL FOR 2022-08-12 23:23:24 Doctor Brittany, [facility] DIAGNOSIS AND TREATMENT [place] [facility] Tubal Ligation (Surg) 2019-04-15 00:00:00 [facility] Caesarean Section 2013-11-27 00:00:00 [facility] Caesarean Section 2009-04-11 00:00:00 [facility] Caesarean Section 2008-01-30 00:00:00 [facility] Plan of Care Planned Activity Planned Date Details Comments Source Diagnostic Test 2021-05-11 urinalysis, [facility] Pending 00:00:00 dipstick [code = Group urinalysis, dipstick] Diagnostic Test 2021-05-11 HIV (1+2) Ab [facility] Pending 00:00:00 screen, serum [code Group = HIV (1+2) Ab screen, serum] Diagnostic Test 2021-05-11 RPR (rapid plasma [facility] Pending 00:00:00 reagin), serum Group [code = RPR (rapid plasma reagin), serum] Diagnostic Test 2021-05-11 HBsAg (hepatitis B [facility] Pending 00:00:00 surface Ag), serum Group [code = HBsAg (hepatitis B surface Ag), serum] Diagnostic Test 2021-05-11 CT + NG + TV, DNA, [facility] Pending 00:00:00 urine/swab [code = Group CT + NG + TV, DNA, urine/swab] Diagnostic Test 2021-05-11 bacterial vaginosis [facility] Pending 00:00:00 panel, vaginal Group [code = bacterial vaginosis panel, vaginal] Encounters Start End Encounter Admission Attending Care Care Encounter Source Date/Time Date/Time Type Type Clinicians Facility Department ID 2022-09-12 2022-09-12 Orders Doctor JOSR [id number] Univers 00:00:00 00:00:00 Only Unassigned, JULIETH 350.1.13.10 ity of [place] [facility] 4.2.7.2.686 [place] as [id number] [address] 2022-08-12 2022-08-12 Emergency X MIRACLE HUERTA ERT [id number] Univers 18:39:00 21:51:00 GREGORY cox [facility] 2022-08-12 2022-08-12 Emergency Bradley RUST [id number] Univers 18:39:00 21:51:00 Gregory Ramirez [place] 350.1.13.10 i ty of [place]7.2.686 [place] [id number] [address] 2022-06-15 2022-06-15 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, Ang - Db RUST 1.2.840.1 [id number] Univers 08:45:00 09:00:00 Visit Ellis Phipps [facility] 350.1.13.10 ity [facility] 4.2.7.2.686 [place] VIKRAM?BLEA [phone] De leatha LOTT [address] [facility] MEDICAL OFFICE [facility] 2022-06-15 2022-06-15 Outpatient R DESIRE [facility] [id number] Univers 08:45:00 08:45:00 ELLIS dckana [facility] 2022-06-11 2022-06-11 [facility] [id number] Univers 00:00:00 00:00:00 Ellis [facility] 350.1.13.10 it y of [facility] 4.2.7.2.686 [place] VIKRAM?BLEA [phone] De leatha [address] OFFICE [facility] 2022-06-11 2022-06-11 [facility] [id number] [id number] Univers 00:00:00 00:00:00 Ellis HEALTH 350.1.13.10 it y of [facility] 4.2.7.2.686 [place] as VIKRAM?BLEA [id number] De leatha LOTT [address] [place] [address] OFFICE [facility] 2022-06-08 2022-06-08 Office [facility] [id number] Univers 15:00:00 17:02:12 Visit Ellis [facility] 350.1.13.10 it y of [place] 4.2.7.2.686 [place] as VIKRAM?BLEA [phone] De leatha [address] OFFICE [facility] 2022-06-08 2022-06-08 Outpatient R DESIRE [facility] [id number] Univers 15:00:00 17:02:12 ELLIS cox [facility] 2022-06-08 2022-06-08 Outpatient R DESIRE [facility] [id number] Univers 15:00:00 17:02:12 ELLIS cox [facility] 2022-06-08 2022-06-08 Outpatient R DESIRE [facility] [id number] Univers 15:00:00 15:00:00 ELLIS cox [facility] 2022-06-08 2022-06-08 Abstract Desire RUST [id number] Univers 00:00:00 00:00:00 Ellis HEALTH 350.1.13.10 it y of [place] 4.2.7.2.686 [place] as VIKRAM?BLEA [id number] [facility] [address] [facility] MEDICAL OFFICE [facility] 2021-11-09 2021-11-09 Telephone JOSR Guo [id number] Univers 00:00:00 00:00:00 Erica CLANCY 350.1.13.10 it y of [facility] 4.2.7.2.686 [place] [id number] [facility] [address] [facility] 2021-11-08 2021-11-08 Laboratory Only, Ang Db Test RUST 1.2.8 40.114 [id number] Univers 09:30:00 09:45:00 Only ByronTonja 350.1.13.10 ity of [place] 4.2.7.2.686 [place] VIKRAM?BLEA [id number] [facility] 370 [facility] OFFICE [facility] 2021-11-08 2021-11-08 Outpatient R BYRON [facility] [id number] Univers 09:30:00 09:30:00 TONJA ity [facility] 2021-11-08 2021-11-08 Orders Doctor OVALLES 1.2.840.114 [id number] Univers 00:00:00 00:00:00 Only UnassignedJULIETH 350.1.13.10 ity of [place] [facility] 4.2.7.2.686 [place] as [id number] [facility] [address] [place] 2021-06-16 2021-06-16 Letter JOSR Nuno 1.2.840.114 [id number] Univers 00:00:00 00:00:00 (Out) Cheryl CLANCY 350.1.13.10 it y of [facility] 4.2.7.2.686 [place] [id number] [facility] 019 Branch 2021-06-15 2021-06-15 Laboratory Only, Ang Db Test RUST 1.2.8 40.114 [id number] Univers 09:21:19 09:31:19 Only Alannah Cardenas Plovgh 350.1.13.10 ity of [place] 4.2.7.2.686 [place] Vikram?Blea [id number] [address] Medical Office Building 2021-06-15 2021-06-15 Letter Ronald RUST 1.2.840.114 [id number] Univers 00:00:00 00:00:00 (Out) Alannah [facility] 350.1.13.10 it y of [place] 4.2.7.2.686 [place] Vikram?Blea [id number] [address] Office [facility] 2021-05-11 2021-05-11 Lucia Dawson [facility] [place] - [address] [place] 00:00:00 00:00:00 Discovery Maria Alejandra 0729 da [facility]: [address], [place] [address] , Ph. [phone] 2020-09-13 2020-09-13 Emergency [facility] [id number] Univers 13:19:00 15:18:00 Gómez Thurston 350.1.13.10 i ty of [place] 4.2.7.2.686 [place] [id number] [facility] 084 Branch 2020-09-13 2020-09-13 Emergency [facility] ERT [id number] Univers 13:19:00 15:18:00 GÓMEZ cox [facility] 2020-08-31 2020-08-31 Outpatient Evelyn [facility] [id number] [place] 02:20:00 02:20:00 1118 [facility] 2019-04-27 2019-04-27 Erickson [facility] [place] - [id number] [place] 00:00:00 00:00:00 Discovery Antonette 0715 rian MD: [address] [place] [address] , Ph. [phone] 2019-04-15 2019-04-15 [place] - [address] [place] 00:00:00 00:00:00 Discovery Antonette 0703 da MD: [address] [place] [address] , Ph. [phone] 2019-04-13 2019-04-13 [place] - [address] [place] 00:00:00 00:00:00 Discovery Antonette 0701 rian MD: [address] [place] [address] , Ph. [phone] 2019-03-10 2019-03-10 [place] - [id number] [place] 00:00:00 00:00:00 Discovery Antonette 0528 rian MD: [address] [place] [address] , Ph. [phone] 2018-11-27 2018-11-27 [place] - [address] [place] 00:00:00 00:00:00 Discovery Antonette 0214 da MD: [address] [place] [address] , Ph. [phone] Results Test Description Test Time Test Comments Results Result Comments Source BASIC METABOLIC PANEL (NA, K, CL, CO2, GLUCOSE, BUN, 2022-07 01:38:30 CREATININE, CA) Test Item Value Reference Range Interpretation Comme nts NA (test code = 6426470587) 141 mmol/L 135-145 K (test code = 9959407833) 3.7 mmol/L 3.5-5.0 CL (test code = 9964962676) 103 mmol/L 98-108 CO2 TOTAL (test code = 29 mmol/L - 5965003084) AGAP (test code = 1778748765) 2-16 BUN (test code = 3108249302) 11 mg/dL 7-23 GLUCOSE (test code = 3836206364) 98 mg/dL 70-110 CREATININE (test code = 0.63 mg/dL 0.50-1.04 2348607522) CALCIUM (test code = 1069307800) 9.2 mg/dL 8.6-10.6 eGFR (test code = 4321977960) mL/min/1.73m2 KHADIJAH (test code = KHADIJAH) Association [...] or urine or abnormalities in imaging tests). [facility] (ALB,T.PRO,BILI T,BU/BC,ALT,AST,ALK PHOS)2022-08-13 01:38:30 Test Item Value Reference Range Interpretation Comments TOTAL BILI (test code = 8130559194) 0.8 mg/dL 0.1-1.1 BILI UNCON (test code = 4588952442) 0.6 mg/dL 0.1-1.1 BILI CONJ (test code = 1188669574) 0.0 mg/dL 0.0-0.3 T PROTEIN (test code = 8927606395) 7.7 g/dL 6.3-8.2 ALBUMIN (test code = 0739721704) 4.6 g/dL 3.5-5.0 ALK PHOS (test code = 2359184922) 70 U/L 34-122 ALTv (test code = 1742-6) 19 U/L 5-35 AST(SGOT) (test code = 0219119161) 24 U/L 13-40 Lab Interpretation (test code = Normal 16959-9) [facility]2022-10-31 01:38:30 Test Item Value Reference Range Interpretation Comments LIPASE (test code = 6679929646) 30 U/L 0-220 Lab Interpretation (test code = Normal 56232-5) [facility] WITH [id number] 01:27:14 Test Item Value Reference Range Interpretation Comments WBC (test code = See_Comment [Automated 1990-2) message] The sy stem which generated this result transmitted reference range : 4.30 - 11.10 10*3/?L. The reference range was not used to interpret this result as normal/abnormal . RBC (test code = See_Comment [Automated 597-8) message] The sy stem which generated this [...] (test code = 38.4 fL 39.0-49.9 L 03325-4) RDW-CV (test code = 11.4 % 12.0-15.5 L 788-0) PLT (test code = See_Comment [Automated 777-3) message] The sy stem which generated this result transmitted reference range : 166 - 358 10*3/ ?L. The reference r mirna was not used to interpret this result as normal/abnormal . MPV (test code = 9.4 fL 9.5-12.9 L 50297-2) NRBC/100 WBC (test See_Comment [Automat ed code = 2449822478) message] The system which generated this result transmitted reference range : 0.0 - 10.0 /100 WBCs. The refer ence range was not u sed to interpret th is result as normal/abnormal . NRBC x10^3 (test code See_Comment [Auto mated = 6663590950) message] The s ystem which generated this result transmitted reference range : 10*3/?L. The reference range was not used to interpret this result as normal/abnormal . GRAN MAT (NEUT) % 61.5 % (test code = 770-8) IMM GRAN % (test code 0.30 % = 9138317606) LYMPH % (test code = 29.1 % 736-9) MONO % (test code = 8.4 % 5905-5) EOS % (test code = 0.3 % 713-8) BASO % (test code = 0.4 % 706-2) GRAN MAT x10^3(ANC) 4.90 10*3/uL 1.88-7.09 (test code = 4618749529) IMM GRAN x10^3 (test 0.00-0.06 code = 9086718475) LYMPH x10^3 (test code 2.31 10*3/uL 1.32-3.29 = 731-0) MONO x10^3 (test code 0.67 10*3/uL 0.33-0.92 = 742-7) EOS x10^3 (test code = 0.03-0.39 L 711-2) BASO x10^3 (test code 0.03 10*3/uL 0.01-0.07 = 704-7) Lab Interpretation Abnormal (test code = 07738-6) [facility] [id number] 01:17:00 Test Item Value Reference Range Interpretation Comments POCT PREG (test code = 1605) Negative On board controls acceptable with Present C Line (test code = 3574) POCT PREG LOT # (test code = 3575) [id number] POCT PREG TEST DATE (test 12-12-2023 code = 3576) Lab Interpretation (test code = Normal 40787-6) [facility] macro (dipstick) panel - Urine 2021-05-11 11:11:00 Test Item Value Reference Range Interpretation Comments Leukocytes (test code = Leukocytes) Negative Nitrite (test code = Nitrite) negative Urobilinogen (test code = .2 Urobilinogen) Protein (test code = Protein) Negative pH (test code = pH) 6.5 Blood (test code = Blood) Negative Specific [place] (test code = 1.020 Specific [place]) Ketone (test code = Ketone) Negative Bilirubin (test code = Bilirubin) Negative Glucose (test code = Glucose) Negative Appearance (test code = Appearance) Clear Color (test code = Color) Yellow [facility] (dipstick) panel - [id number] 10:20:03 Test Item Value Reference Range Interpretation Comments Leukocytes (test code = Leukocytes) Negative Nitrite (test code = Nitrite) negative Urobilinogen (test code = .2 Urobilinogen) Protein (test code = Protein) Trace pH (test code = pH) 5.5 Blood (test code = Blood) Negative Specific [place] (test code = 1.030 Specific [place]) Ketone (test code = Ketone) Negative Bilirubin (test code = Bilirubin) Negative Glucose (test code = Glucose) Negative Appearance (test code = Appearance) Clear Color (test code = Color) Yellow [facility] macro (dipstick) panel - [id number] 10:35:45 Test Item Value Reference Range Interpretation Comments Leukocytes (test code = Leukocytes) Negative Nitrite (test code = Nitrite) negative Urobilinogen (test code = .2 Urobilinogen) Protein (test code = Protein) Trace pH (test code = pH) 7.0 Blood (test code = Blood) Large Specific [place] (test code = 1.030 Specific [place]) Ketone (test code = Ketone) Negative Bilirubin (test code = Bilirubin) Negative Glucose (test code = Glucose) Negative Appearance (test code = Appearance) Clear Color (test code = Color) [place] [facility] macro (dipstick) panel - [id number] 10:35:45 Test Item Value Reference Range Interpretation Comments Leukocytes (test code = Leukocytes) Negative Nitrite (test code = Nitrite) negative Urobilinogen (test code = .2 Urobilinogen) Protein (test code = Protein) Trace pH (test code = pH) 7.0 Blood (test code = Blood) Large Specific [place] (test code = 1.030 Specific [place]) Ketone (test code = Ketone) Negative Bilirubin (test code = Bilirubin) Negative Glucose (test code = Glucose) Negative Appearance (test code = Appearance) Clear Color (test code = Color) [place] [facility], [id number] 10:18:02 Test Item Value Reference Range Interpretation Comments Test (test code = negative Test) [facility], [id number] 10:18:02 Test Item Value Reference Range Interpretation Comments Test (test code = negative Test) [facility] Auto Differential panel - [id number] 10:07:00 Test Item Value Reference Range Interpretation Comments white blood count (test code = 6.4 K/uL 4.0-11.5 white blood count) red blood count (test code = red 4.42 M/uL 3.80-5.20 blood count) hemoglobin (test code = 13.8 g/dL 10.5-15.7 hemoglobin) hematocrit (test code = 43.3 % 34.0-50.0 hematocrit) Erythrocyte mean corpuscular 98.0 fL 86-100 volume [Entitic volume] (test code = 67755-2) Erythrocyte mean corpuscular 31.2 pg 26.2-33.4 hemoglobin [Entitic mass] (test code = 18774-0) mean corpuscular HGB conc (test 31.9 g/dL 30-34 code = mean corpuscular HGB conc) red cell distribution width (test 11.9 % 12.0-15.5 L code = red cell distribution width) platelet count (test code = 276 K/uL 165-450 platelet count) mean platelet volume (test code = 9.1 fL 9.4-12.6 L mean platelet volume) Neutrophils.segmented/100 63.4 % 44.4-80.1 leukocytes in Blood (test code = 44928-7) Ig% (test code = Ig%) 0.2 % 0.0-0.4 lymphocyte% (test code = 25.9 % 10.0-50.0 lymphocyte%) Monocytes/100 leukocytes in Blood 9.0 % 3.6-12.0 by Automated count (test code = 5905-5) Eosinophils/100 leukocytes in 1.2 % 0.0-5.4 Blood by Automated count (test code = 713-8) Basophils/100 leukocytes in 0.3 % 0.1-1.2 Unspecified specimen (test code = 15432-0) absolute neutrophil count (test 4.06 K/uL 1.56-6.13 code = absolute neutrophil count) Ig# (test code = Ig#) 0.0 K/uL 0.0-0.03 Lymphocytes [#/volume] in 1.7 K/uL 1.18-3.74 Unspecified specimen by Automated count (test code = 59036-8) mono # (test code = mono #) 0.58 K/uL 0.24-0.86 eos # (test code = eos #) 0.08 K/uL 0.04-0.36 basophil # (test code = basophil 0.02 K/uL 0.01-0.08 #) NRBC% (test code = NRBC%) 0 /100 WBC 0-0.2 NRBC# (test code = NRBC#) 0 K/uL [facility] [id number] 15:26:00 Test Item Value Reference Range Interpretation Comments Test (test code = negative Test) [facility]dipstick) panel - [id number] 15:26:00 Test Item Value Reference Range Interpretation Comments Leukocytes (test code = Leukocytes) Trace Nitrite (test code = Nitrite) negative Urobilinogen (test code = .2 Urobilinogen) Protein (test code = Protein) Negative pH (test code = pH) 6.5 Blood (test code = Blood) Negative Specific [place] (test code = 1.030 Specific [place]) Ketone (test code = Ketone) Negative Bilirubin (test code = Bilirubin) Negative Glucose (test code = Glucose) Negative Appearance (test code = Appearance) Clear Color (test code = Color) Yellow [facility]Chori[facility]adotropin.beta subunit [Units/volume] in Serum or [id number] 01:50:00 Test Item Value Reference Range Interpretation Comments HCG quantitative (test code = HCG 0.1 mIU/mL 0-5 quantitative) [facility]"
[2023-02-19 19:59] LABS: Absolute Lymphocytes (CBC) 2.4 K/uL (0.7-4.9); Hematocrit 39.6 % (36.0-45.0); Lymphocytes % 30.5 % (15.3-44.8); MCV 95.2 fL (80-100); MPV 7.4 fL (7.6-11.3); RBC Red Blood Cell Count 4.16 M/uL (3.86-4.86)
[2023-02-19 20:13] LABS: Protime INR 0.89
--- NOTE | 2023-02-19 20:22 | RAD REPORT ---
EXAM DESCRIPTION: Gabriel Single View02/19/2023 8:10 pm CLINICAL HISTORY: Chest pain/palpitations COMPARISON: none FINDINGS: The lungs appear clear of acute infiltrate. The heart is normal size IMPRESSION: No acute abnormalities displayed
[2023-02-19 20:24] LABS: ALT/SGPT 19 U/L (13-56); AST/SGOT 10 U/L (15-37); Albumin 3.8 g/dL (3.4-5.0); Alkaline Phosphatase 70 U/L (45-117); BUN Blood Urea Nitrogen 8 mg/dL (7-18); Bicarbonate 28 mEq/L (21-32); Bilirubin Total 0.3 mg/dL (0.2-1.0); Glomerular Filtration Rate 111 ml/min (=/>90); Glucose Level 110 mg/dL (74-106); Magnesium 2.2 mg/dL (1.6-2.4); Potassium 3.5 mEq/L (3.5-5.1); Protein, Total 7.5 g/dL (6.4-8.2); Sodium Level 138 mEq/L (136-145)
[2023-02-19 20:25] LABS: Bilirubin Direct < 0.1 mg/dL (0-0.2); Troponin High Sensitivity < 3.0 pg/mL (<58.9)
[2023-02-19 20:27] LABS: Specific Gravity 1.016 (1.005-1.030)
[2023-02-19 20:28] LABS: Specific Gravity 1.016 (1.005-1.030); Urine Bacteria <20 /HPF (<20); Urine Bilirubin NEGATIVE (Negative); Urine Blood 1+ (Negative); Urine Clarity Turbid (Clear); Urine Color Light-Yellow (Yellow); Urine Glucose NEGATIVE (Negative); Urine Mucus 1+ /HPF (None Seen); Urine Protein NEGATIVE (Negative); Urine RBC <5 /HPF (None Seen); Urine Urobilinogen Normal (Normal)
--- NOTE | 2023-02-19 20:39 | RAD REPORT ---
EXAM DESCRIPTION: CT - Head C Spine Mpr Wo Con - 02/19/2023 8:25 pm CLINICAL HISTORY: Right arm Numbness/dizziness COMPARISON: None. TECHNIQUE: Computed axial tomography of the head and cervical spine was obtained. Sagittal and coronal reconstruction was performed. All CT scans are performed using dose optimization technique as appropriate and may include automated exposure control or mA/KV adjustment according to patient size. FINDINGS: An intracranial bleed is not seen. The ventricles are normal in caliber. No significant hypodensity within the brain. An extra-axial fluid collection is not noted. Fluid within the visualized sinuses and mastoids is not seen A cervical fracture is not visualized. No dislocation is noted. No large disc bulge noted. Central/foraminal stenosis not visualized IMPRESSION: No acute intracranial abnormality is seen. A cervical fracture is not visualized. No high-grade central/foraminal stenosis cervical spine If the patient continues to have symptoms to suggest intracranial /spinal cord/ spinal canal patholog y then MRI would be recommended
--- NOTE | 2023-02-19 21:55 | ER ---
Nurse's Notes [facility] Name: Josee Anthony Age: 32 yrs Sex: Female : 1990 Arrival Date: 02/19/2023 Time: 19:12 Bed 17 Private MD: Diagnosis: Chest pain, unspecified;Palpitations Presentation: 02/19 19:16 Chief complaint: Patient states: "I've been having chest pain, and weakness, and my as6 right arm is numb, and I've been sleeping a lot. It's been going on for about a week". Coronavirus screen: At this time, the client does not indicate any symptoms associated with coronavirus-19. Ebola Screen: No symptoms or risks identified at this time. Initial Sepsis Screen: Does the patient meet any 2 criteria? No. Patient's initial sepsis screen is negative. Does the patient have a suspected source of infection? No. Patient's initial sepsis screen is negative. Risk Assessment: Do you want to hurt yourself or someone else? Patient reports no desire to harm self or others. Onset of symptoms was February 12, 2023. 19:16 Method Of Arrival: Ambulatory as6 19:16 Acuity: ROBERT 3 as6 Triage Assessment: 19:20 General: Appears in no apparent distress. comfortable, Behavior is calm, cooperative. as6 Pain: Complains of pain in chest. Cardiovascular: Reports chest pain, palpitations. 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 - Social history:: Smoking status: Patient reports the use of cigarette tobacco products, smokes one pack cigarettes per day. Reported history of juuling and/or vaping. - Family history:: not pertinent. - Hospitalizations: : No recent hospitalization is reported. Screenin:[address] [facility] ED Fall Risk Assessment (Adult) History of falling in the last 3 months, mb9 including since admission No falls in past 3 months (0 pts) Confusion or Disorientation No (0 pts) Intoxicated or Sedated No (0 pts) Impaired Gait No (0 pts) Mobility Assist Device Used No (0 pt) Altered Elimination No (0 pt) Score/Fall Risk Level 0 - 2 = Low Risk Oriented to surroundings, Maintained a safe environment, Educated pt \\T\\ family on fall prevention, incl call for assistance when getting out of bed. Abuse screen: Denies threats or abuse. Nutritional screening: No deficits noted. Tuberculosis screening: No symptoms or risk factors identified. Assessment: 20:25 Pain: Complains of pain in chest Pain radiates to neck Quality of pain is described as mb9 sharp, throbbing, Pain began 2-3 days ago. Is continuous. Neuro: Level of Consciousness is awake, alert, obeys commands, Oriented to person, place, time, situation, Appropriate for age. Cardiovascular: Patient's skin is warm and dry. Respiratory: Airway is patent Respiratory effort is even, unlabored, Respiratory pattern is regular, symmetrical. Derm: Skin is pink, warm \\T\\ dry. Musculoskeletal: Range of motion: intact in all extremities. Vital Signs: 19:16 BP 128 / 90; Pulse 73; Resp 18 S; Temp 97.6(TE); Pulse Ox 100% on R/A; Weight 70.31 kg as6 (R); Height 5 ft. 2 in. (R); Pain 7/10; 21:37 BP 100 / 81; Pulse 68; Resp 16; Pulse Ox 98% on R/A; mb9 19:16 Body Mass Index 28.35 (70.31 kg, 157.48 cm) as6 19:16 Pain Scale: Adult as6 [place] Coma Score: 21:00 Eye Response: spontaneous(4). Motor Response: obeys commands(6). Verbal Response: cristina oriented(5). Total: 15. ED Course: 19:13 Patient arrived in ED. rg4 19:16 Arm band placed on. as6 19:19 Triage completed. as6 19:28 Nicolas Mccarthy MD is Attending Physician. rn 19:53 Inserted saline lock: 20 gauge in right antecubital area, using aseptic technique. as6 Blood collected. 19:53 T4 Free Sent. as6 19:53 TSH Sent. as6 19:53 Basic Metabolic Panel Sent. as6 19:54 CBC with Diff Sent. as6 19:54 Hepatic Function Sent. as6 19:54 Magnesium Sent. as6 19:54 Protime (+inr) Sent. as6 19:54 Ptt, Activated Sent. as6 19:54 Troponin High Sensitivity Sent. as6 20:04 Attending Physician role handed off by Nicolas Mccarthy MD cha 20:04 Naveen Lam MD is Attending Physician. cristina 20:07 Sherin Mccord, RN is Primary Nurse. mb9 20:08 Placed in gown. Bed in low position. Call light in reach. Side rails up X 1. Client mb9 placed on continuous cardiac and pulse oximetry monitoring. NIBP monitoring applied. hospital monitor on. 20:08 No provider procedures requiring assistance completed. mb9 20:08 T4 Free Sent. mb9 20:08 TSH Sent. mb9 20:09 EKG done, by ED staff, reviewed by Naveen Lam MD. mb9 20:12 Chest Single View XRAY In Process Unspecified. EDMS 20:19 Test, Urine Sent. mb9 20:27 CT Head C Spine In Process Unspecified. EDMS 21:55 Eran Auguste MD is Referral Physician. cristina 22:13 IV discontinued, intact, bleeding controlled, No redness/swelling at site. Pressure ll3 dressing applied. Patient maintains SpO2 saturation greater than 95% on room air. Administered Medications: No medications were administered Medication: 20:08 VIS not applicable for this client. mb9 Outcome: 21:55 Discharge ordered by . cristina 22:16 Discharged to home ambulatory, with family. ll3 22:16 Condition: stable 22:16 Discharge instructions given to patient, family, Instructed on discharge instructions, follow up and referral plans. medication usage, Demonstrated understanding of instructions, follow-up care, medications, Prescriptions given X 1. 22:17 Patient left the ED. ll3 Signatures: Dispatcher [employer] EDAZ Naveen Lam MD MD cha Nieto, Roman, MD MD rn Garcia, Rubi rg4 Indio Cortez RN RN as6 Kelly Bocanegra RN RN ll3 Sherin Mccord, CAMILA RN mb9
--- NOTE | 2023-02-19 21:56 | EDPHYS ---
Physician Documentation [facility] Name: Josee Anthony Age: 32 yrs Sex: Female : 1990 Arrival Date: 02/19/2023 Time: 19:12 Bed 17 Private MD: MEDINA Physician Naveen Lam HPI: 02/19 19:41 This 32 yrs old Female presents to ER via Ambulatory with complaints of Chest Pain, rn Numbness Of Arm, Dizziness. 19:41 The patient complains of pain to the top of head and forehead. The patient describes rn the headache as aching. Onset: The symptoms/episode began/occurred 2 week(s) ago. Associated signs and symptoms: Pertinent positives: dizziness, Pertinent negatives: fever, neck stiffness, Photophobia rash, vision changes, vision loss, vomiting, vertigo. Severity of symptoms: At its worst the pain was moderate, in the emergency department the pain is unchanged. The symptoms are alleviated by nothing. the symptoms are aggravated by nothing. The patient has not experienced similar symptoms in the past. The patient has not recently seen a physician. Pt reports 2 weeks of intermittent headache, dizziness, right arm tingling and pain. No head trauma. No fever. No focal neuro complaint. Reports sometimes feels palpitations as well. Does not take meds. No drug use. REports head pressure "like brain is swelling". . 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 - Social history:: Smoking status: Patient reports the use of cigarette tobacco products, smokes one pack cigarettes per day. Reported history of juuling and/or vaping. - Family history:: not pertinent. - Hospitalizations: : No recent hospitalization is reported. ROS: 19:41 Constitutional: Negative for fever, chills, and weight loss, Neck: Negative for injury, rn and swelling, Cardiovascular: Negative for edema Respiratory: Negative for shortness of breath, cough, wheezing, and pleuritic chest pain, Abdomen/GI: Negative for abdominal pain, nausea, vomiting, diarrhea, and constipation, Back: Negative for injury and pain, MS/Extremity: Negative for injury and deformity, Skin: Negative for injury, rash, and discoloration, Neuro: Negative for weakness, and seizure. Exam: 19:41 Constitutional: This is a well developed, well nourished patient who is awake, alert, rn and in no acute distress. Head/Face: Normocephalic, atraumatic. Neck: Trachea midline, no masses palpated, and no cervical lymphadenopathy. Supple, full range of motion without nuchal rigidity, or vertebral point tenderness. No Meningismus. Cardiovascular: Regular rate and rhythm with a normal S1 and S2. No gallops, murmurs, or rubs. Normal PMI, no JVD. No pulse deficits. Respiratory: Lungs have equal breath sounds bilaterally, clear to auscultation and percussion. No rales, rhonchi or wheezes noted. No increased work of breathing, no retractions or nasal flaring. Abdomen/GI: Soft, non-tender, with normal bowel sounds. No distension or tympany. No guarding or rebound. No evidence of tenderness throughout. Skin: Warm, dry with normal turgor. Normal color with no rashes, no lesions, and no evidence of cellulitis. MS/ Extremity: Pulses equal, no cyanosis. Neurovascular intact. Full, normal range of motion. Equal circumference. Neuro: Awake and alert, GCS 15, oriented to person, place, time, and situation. Cranial nerves II-XII grossly intact. Motor strength 5/5 in all extremities. Decreased sensation RUE, intact otherwise. 21:01 ECG was reviewed by the Attending Physician. [facility] 21:01 ECG was reviewed by the Attending Physician. [facility] Vital Signs: 19:16 BP 128 / 90; Pulse 73; Resp 18 S; Temp 97.6(TE); Pulse Ox 100% on R/A; Weight 70.31 kg as6 (R); Height 5 ft. 2 in. (R); Pain 7/10; 21:37 BP 100 / 81; Pulse 68; Resp 16; Pulse Ox 98% on R/A; mb9 19:16 Body Mass Index 28.35 (70.31 kg, 157.48 cm) as6 19:16 Pain Scale: Adult as6 [place] Coma Score: 21:00 Eye Response: spontaneous(4). Motor Response: obeys commands(6). Verbal Response: cristina oriented(5). Total: 15. MDM: 19:28 Patient medically screened. rn 20:04 Patient medically screened. cristina 21:00 Differential diagnosis: migraine. Data reviewed: vital signs, nurses notes, lab test cristina result(s), EKG, radiologic studies, CT scan, plain films. Consideration of Admission/Observation Escalation of care including admission/observation considered. Independent interpretation of the following test(s) in the Emergency Department EKG: See my EKG interpretation above. Care significantly affected by the following chronic conditions: NONE. 02/19 19:41 Order name: Basic Metabolic Panel; Complete Time: 20:43 02/19 19:41 Order name: CBC with Diff; Complete Time: 20:43 02/19 19:41 Order name: Hepatic Function; Complete Time: 20:43 02/19 19:41 Order name: Magnesium; Complete Time: 20:43 02/19 19:41 Order name: Test, Urine; Complete Time: 20:43 02/19 19:41 Order name: Protime (+inr); Complete Time: 20:43 02/19 19:41 Order name: Ptt, Activated; Complete Time: 20:43 02/19 19:41 Order name: Troponin High Sensitivity; Complete Time: 20:43 02/19 19:41 Order name: Urinalysis w/ reflexes; Complete Time: 20:43 02/19 19:41 Order name: TSH; Complete Time: 20:43 02/19 19:41 Order name: T4 Free; Complete Time: 20:43 02/19 20:44 Order name: Troponin High Sensitivity; Complete Time: 21:53 [facility] 02/19 21:20 Order name: D-Dimer; Complete Time: 21:53 [facility] 02/19 19:41 Order name: CT Head C Spine; Complete Time: 20:43 02/19 19:41 Order name: Chest Single View XRAY; Complete Time: 20:43 02/19 19:41 Order name: EKG; Complete Time: 19:42 02/19 20:43 Order name: EKG; Complete Time: 20:44 [facility] 02/19 19:41 Order name: Cardiac monitoring; Complete Time: 20:08 02/19 19:41 Order name: EKG - Nurse/Tech; Complete Time: 20:08 rn 02/19 19:41 Order name: IV Saline Lock; Complete Time: 19:53 rn 02/19 19:41 Order name: Labs collected and sent; Complete Time: 19:53 rn 02/19 19:41 Order name: NPO; Complete Time: 20:08 rn 02/19 19:41 Order name: O2 Per Protocol; Complete Time: 20:08 rn 02/19 19:41 Order name: O2 Sat Monitoring; Complete Time: 20: rn 02/19 20:43 Order name: EKG - Nurse/Tech; Complete Time: 21:04 cristina EC:01 Rate is 75 beats/min. Rhythm is regular. QRS [place] is Normal. CO interval is normal. QRS cristina interval is normal. QT interval is normal. No Q waves. T waves are Normal. No ST changes noted. Clinical impression: NSR w/ Non-specific ST/T Changes and No evidence of ischemia. Interpreted by me. Reviewed by me. 21:01 Rate is 69 beats/min. Rhythm is regular. QRS [place] is Normal. CO interval is normal. QRS cristina interval is normal. QT interval is normal. No Q waves. T waves are Normal. No ST changes noted. Clinical impression: NSR w/ Non-specific ST/T Changes and No evidence of ischemia. Interpreted by me. Reviewed by me. Administered Medications: No medications were administered Disposition Summary: 02/19/23 21:55 Discharge Ordered Location: Home cristina Problem: new cristina Symptoms: have improved cristina Condition: Stable cristina Diagnosis - Chest pain, unspecified cristina - Palpitations cristina Followup: cristina - With: Private Physician - When: 2 - 3 days - Reason: Recheck today's complaints, Continuance of care, Re-evaluation by your physician Followup: cristina - With: - When: 2 - 3 days - Reason: Recheck today's complaints, Re-evaluation by your physician Discharge Instructions: - Discharge Summary Sheet cristina - Nonspecific Chest Pain, Adult cristina - Chest Wall Pain cristina - Palpitations cristina - Chest Wall Pain, [id number] cristina - Nonspecific Chest Pain, Adult, [id number] cristina - Aspirin and Your Heart cristina - Palpitations, [id number] cristina Forms: - Medication Reconciliation Form cristina - Thank You Letter cristina - Antibiotic Education cristina - Prescription Opioid Use cristina Prescriptions: - Pepcid 20 mg Oral Tablet - take 1 tablet by ORAL route every 12 hours for 10 days; 20 tablet; Refills: 0, cristina Product Selection Permitted Signatures: Dispatcher [employer] Naveen Santana MD MD cha Nieto, Roman, MD MD rn Slawson, Ashby, RN RN as6
[2023-02-19 22:30] VITALS: TEMP 97.6
[2023-02-19 22:32] VITALS: BP 100/81; O2SAT 98
--- NOTE | 2023-02-20 15:58 | EKG ---
Test Date: 2023-02-19 Test Time: 20:52:22 [employer]: MB MEASUREMENT RESULTS: Intervals: Rate: 69 MO: 236 QRSD: 86 QT: 362 QTc: 387 [place]: P: MO: 236 QRS: 78 T: 106 INTERPRETIVE STATEMENTS: Sinus rhythm with 1st degree AV block ST elevation, probably due to early repolarization Borderline ECG Compared to ECG 02/19/2023 20:15:22 First degree AV block now present ST (T wave) deviation now present Electronically Signed On 02-20-23 15:57:01 CDT by Franklin Rodriguez
--- NOTE | 2023-02-20 15:58 | EKG ---
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
== END 2023-02-19 22:17 | disposition home or self-care (01) ==
LOC: ER 19:12
DX: R07.9 Chest pain, unspecified (principal); R00.2 Palpitations; R51.9 Headache, unspecified; R42 Dizziness and giddiness; F17.210 Nicotine dependence, cigarettes, uncomplicated
CPT/HCPCS: 36415; 70450; 71045; 72125; 80048; 80076; 81001; 81025; 83735; 84439; 84443; 84484; 85025; 85379; 85610; 85730; 93005; 99285

== ENCOUNTER 2023-06-26 11:34 | Emergency (ER) | payer OTHER ==
--- OUTSIDE RECORDS SUMMARY | 2023-06-26 11:38 | XMS REPORT | Continuity of Care Document ---
:1990 Author Organization [facility] t Address [address] [place] [address] [place] [address] Care Team Providers Name Role Phone Ellis Jacome Primary Care Physician Doctor Unassigned, [place] Attending Clinician Unavailable GREGORY HUERTA Attending Clinician [...] Type Policy Number Effective Date Expiration Date [facility] [id number] 2013 CHOICE (MEDICAID 00:00:00 REPLACEMENT - HMO) [...] Disease Active Univers 8-26 ity of 00:00: [place] 00 Medical Branch Chest Chest Disease Active Univers pain, pain, 06-08 ity of [place] d type 00 [facility] Acute Acute Disease Active Univers nonintract nonintract 06-08 it y of able able 00:00: [place] headache, headache, [facility] unspecifie unspecifie Br anch d headache [...] 2-23 da requested Requested 00:00: [facility] 00 Group Allergies, Adverse Reactions, Alerts Allergy Allergy Status Severity Reaction(s) Onset Inactive Treating Comm ents Source Name Type Date Date Clinician Mushroom Drug Active Hives Univers Allergy 7-29 ity of 00:00: [place] [facility] MUSHROOM DRUG Active Med Hives Univers INGREDI 7-29 ity of 00:00: [place] [facility] Mushroom Allergy Active Moderate Hives [place] to 7-29 da substanc 00:00: Medical e 00 Group Social History Social Habit Start Date Stop Date Quantity Comments Source Exposure to 2022-08-02 2022-08-12 Not sure [facility] SARS-CoV-2 (event) 00:00:00 18:37:00 Medica l Branch Sex Assigned At [birth year] [facility] [place] 00:00:00 00:00:00 Medical Branch Smoking Status Start Date Stop Date Source Light Tobacco Smoker [facility] Tobacco smoking consumption [facility] Medical unknown Branch Medications Ordered Filled Start [...] 08/12/22 at 1999, STAT ondansetron 2021-10 Yes [id number] 4mg Take 1 Univers 4 mg 0-30 tablet by ity of disintegrat 00:00: mouth [place] ing tablet 00 every 8 Medica l (eight) Branch hours as needed for Nausea and Vomiting (N/V). oxazepam 15 2021-10 Yes [id number] 15mg Take 1 Univers mg capsule 0-30 capsule by ity of 00:00: mouth in [place] 00 the Medical morning Branch and 1 capsule in the evening. ondansetron 2021-10 Yes [id number] 4mg Take 1 Univers 4 mg 0-30 tablet by ity of disintegrat 00:00: mouth [place] ing tablet 00 every 8 Medica l (eight) Branch hours as needed for Nausea and Vomiting (N/V). oxazepam 15 2021-10 Yes [id number] 15mg Take 1 Univers mg capsule 0-30 capsule by ity of 00:00: mouth in [place] 00 the Medical morning Branch and 1 capsule in the evening. ibuprofen 2021-2021- No [id number] 600mg Take 1 Univers 600 mg 8- 09-10 tablet by ity of tablet 00:00: 04:59 mouth [place] 00 :00 every 6 Medical (six) Branch hours as needed for Temp > 38.5 C for up to 14 days. ibuprofen 2021-2021- No [id number] 600mg Take 1 Univers 600 mg 8- 09-10 tablet by ity of tablet 00:00: 04:59 mouth [place] 00 :00 every 6 Medical (six) Branch hours as needed for Temp > 38.5 C for up to 14 days. ondansetron 2021- No [id number] 4mg Take 1 Univers (ZOFRAN) 4 06-08 tablet by ity of mg tablet 00:00: 04:59 mouth [place] 00 :00 every 8 Medical (eight) Branch hours as needed for Nausea and Vomiting (N/V) for up to 10 days. ondansetron 2021- No [id number] 4mg Take 1 Univers (ZOFRAN) 4 06-08 tablet by ity of mg tablet 00:00: 04:59 mouth [place] 00 :00 every 8 Medical (eight) Branch hours as needed for Nausea and Vomiting (N/V) for up to 10 days. sucralfate 2020- Yes [id number] 1g Take 1 U nivers 1 gram 2-01 tablet by ity of tablet 00:00: mouth [place] 00 before Medical meals and Branch at bedtime. ibuprofen 2020-1 Yes [id number] 600mg Take 1 U nivers 600 mg 2-01 tablet by ity of tablet 00:00: mouth [place] 00 every 6 Medical (six) Branch hours as needed for Pain (scale 4-6). sucralfate 2020-1 Yes [id number] 1g Take 1 U nivers 1 gram 2-01 tablet by ity of tablet 00:00: mouth [place] 00 before Medical meals and Branch at bedtime. ibuprofen 2020-1 Yes [id number] 600mg Take 1 U nivers 600 mg 2-01 tablet by ity of tablet 00:00: mouth [place] 00 every 6 Medical (six) Branch hours as needed for Pain (scale 4-6). sucralfate 2020-1 Yes [id number] 1g Take 1 U nivers 1 gram 2-01 tablet by ity of tablet 00:00: mouth [place] 00 before Medical meals and Branch at bedtime. ibuprofen 2020-1 Yes [id number] 600mg Take 1 U nivers 600 mg 2-01 tablet by ity of tablet 00:00: mouth [place] 00 every 6 Medical (six) Branch hours as needed for Pain (scale 4-6). sucralfate 2020-1 Yes [id number] 1g Take 1 U nivers 1 gram 2-01 tablet by ity of tablet 00:00: mouth 00 before Medical meals and Branch at bedtime. ibuprofen 2019-10 Yes [id number] 600mg Take 1 U nivers 600 mg 2-01 tablet by ity of tablet 00:00: mouth [place] 00 every 6 Medical (six) Branch hours [...] Filled Immunization Date Status Comments [facility] e Immunization Name Name Hep B, Adol or Pedi 2001-10-30 Completed [facility] Dosage 00:[facility]:00 [facility] Varicella 2001-10-30 Completed [facility] (varivax)(chicken 00:00:00 [facility] edical pox) [place] Vital Signs Vital Name Observation Time Observation Value Comments Source Systolic blood 2022-08-13 02:00:00 112 mm[Hg] Univer sity of pressure [facility] Diastolic blood 2022-08-13 02:00:00 76 mm[Hg] [facility] Heart rate 2022-08-13 02:00:00 72 /min [facility] Respiratory rate 2022-08-13 02:00:00 21 /min [facility] Oxygen saturation in 2022-08-13 02:00:00 99 /min [facility] Arterial blood by [facility] [place] Pulse oximetry Branch Body temperature 2022-08-12 23:38:00 37.39 Mer [facility] Body height 2022-08-12 23:38:00 157.5 cm [facility] Body weight 2022-08-12 23:38:00 67.132 kg [facility] BMI 2022-08-12 23:38:00 27.07 kg/m2 [facility] BP Diastolic 2021-05-11 00:00:00 72 mm[Hg] [facility] Height 2021-05-11 00:00:00 62 [in_i] [facility] BMI (Body Mass 2021-05-11 00:00:00 22.9 kg/m2 [facility] BP Systolic 2021-05-11 00:00:00 120 mm[Hg] [facility] Body Weight 2021-05-11 00:00:00 125 [lb_av] [facility] BP Diastolic 2019-04-27 00:00:00 80 mm[Hg] [facility] Height 2019-04-27 00:00:00 62 [in_i] [facility] BMI (Body Mass 2019-04-27 00:00:00 22.2 kg/m2 [facility] BP Systolic 2019-04-27 00:00:00 124 mm[Hg] [facility] Body Weight 2019-04-27 00:00:00 121.6 [lb_av] [facility] BP Diastolic 2019-04-13 00:00:00 82 mm[Hg] [facility] Height 2019-04-13 00:00:00 62 [in_i] [facility] BMI (Body Mass 2019-04-13 00:00:00 22.1 kg/m2 [facility] BP Systolic 2019-04-13 00:00:00 119 mm[Hg] [facility] Body Weight 2019-04-13 00:00:00 120.9 [lb_av] [facility] BP Diastolic 2019-03-10 00:00:00 82 mm[Hg] [facility] Height 2019-03-10 00:00:00 62 [in_i] [facility] BMI (Body Mass 2019-03-10 00:00:00 22.1 kg/m2 [facility] BP Systolic 2019-03-10 00:00:00 116 mm[Hg] [facility] Body Weight 2019-03-10 00:00:00 120.8 [lb_av] [facility] BP Diastolic 2018-11-27 00:00:00 74 mm[Hg] [facility] Height 2018-11-27 00:00:00 62 [in_i] [facility] BMI (Body Mass 2018-11-27 00:00:00 21.6 kg/m2 [facility]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 ([id number]) (ALB,T.PRO,BILI Medical Branch T,BU/BC,ALT,AST,ALK PHOS) BASIC METABOLIC PANEL 2022-08-13 01:16:00 Gregory Huerta [facility] (NA, K, CL, CO2, GLUCOSE, Medica l Branch BUN, CREATININE, CA) URINE DRUG (IMMUNOASSAY) 2022-08-13 01:16:00 Gregory Huerta [facility] - [facility] DRUG Medical [facility] SCREEN CBC WITH DIFF 2022-08-13 01:16:00 Gregory Huerta [facility] URINALYSIS 2022-08-13 01:16:00 Gregory Huerta [facility] NOTICE OF PRIVACY 2022-08-12 23:23:56 Doctor Brittany, [facility] PRACTICES [facility] CONSENT/REFUSAL FOR 2022-08-12 23:23:24 Doctor Brittany, [facility] DIAGNOSIS AND TREATMENT [facility] [place] Tubal Ligation (Surg) 2019-04-15 00:00:00 [facility] Caesarean Section 2013-11-27 00:00:00 [facility] Caesarean Section 2009-04-11 00:00:00 [facility] Caesarean Section 2008-01-30 00:00:00 [facility] Plan of Care Planned Activity Planned Date Details Comments Source Diagnostic Test 2021-05-11 urinalysis, [facility] Pending 00:00:00 dipstick [code = Group urinalysis, dipstick] Diagnostic Test 2021-05-11 HIV (1+2) Ab [facility] Pending 00:00:00 screen, serum [code Group = HIV (1+2) Ab screen, serum] Diagnostic Test 2021-05-11 RPR (rapid plasma [facility] Pending 00:00:00 reagin), serum Group [code = RPR (rapid plasma reagin), serum] Diagnostic Test 2021-05-11 HBsAg (hepatitis B [facility] Pending 00:00:00 surface Ag), serum Group [code = HBsAg (hepatitis B surface Ag), serum] Diagnostic Test 2021-05-11 CT + NG + TV, DNA, [facility] Pending 00:00:00 urine/swab [code = Group CT + NG + TV, DNA, urine/swab] Diagnostic Test 2021-05-11 bacterial vaginosis [facility] Pending 00:00:00 panel, vaginal Group [code = bacterial vaginosis panel, vaginal] Encounters Start End Encounter Admission Attending Care Care Encounter Source Date/Time Date/Time Type Type Clinicians Facility Department ID 2022-09-12 2022-09-12 Orders Doctor JOSR [id number] Univers 00:00:00 00:00:00 Only Unassigned, JULIETH 350.1.13.10 ity of [place] [facility] 4.2.7.2.686 [place] as [phone] [address] 2022-08-12 2022-08-12 Emergency X MIRACLE HUERTA ERT [id number] Univers 18:39:00 21:51:00 GREGORY cox [facility] 2022-08-12 2022-08-[address] [facility] [id number] Univers 18:39:00 21:51:00 Gregory Ramirez [place] 350.1.13.10 i ty of [place]7.2.[place] [phone] [address] 2022-06-15 2022-06-15 Associate Partner Lab, Ang - Db [facility] [id number] Univers 08:45:00 09:00:00 Visit Ellis Phipps [facility] [id number] ity [facility] 4.2.7.2.686 [place] as VIKRAM?BLEA [phone] Nv leatha [address]OTT [address] [place] MEDICAL OFFICE [facility] 2022-06-15 2022-06-15 Outpatient R DESIRE [facility] [id number] Univers 08:45:00 08:45:00 ELLIS dckana [facility] 2022-06-11 2022-06-11 [facility] [id number] Univers 00:00:00 00:00:00 Ellis [facility] [id number] it y [facility] 4.2.7.2.686 [place] VIKRAM?BLEA [phone] Nv leatha [address] OFFICE [facility] 2022-06-11 2022-06-11 Telephone [facility] [id number] Univers 00:00:00 00:00:00 Ellis HEALTH 350.1.13.10 it y [facility] 4.2.7.2.686 [place] VIKRAM?BLEA [id number] Nv leatha LOTT [address] [place] [address] OFFICE [facility] 2022-06-08 2022-06-08 Office [facility] 1.2.840.114 [id number] Univers 15:00:00 17:02:12 Visit Ellis [facility] 350.1.13.10 it y of [place] 4.2.7.2.686 [place] as VIKRAM?BLEA [phone] Nv leatha [address] OFFICE [facility] 2022-06-08 2022-06-08 Outpatient R DESIRE [facility] [id number] Univers 15:00:00 17:02:12 ELLIS cox [facility] 2022-06-08 2022-06-08 Outpatient R DESIRE [facility] [id number] Univers 15:00:00 17:02:12 ELLIS cox [facility] 2022-06-08 2022-06-08 Outpatient R DESIRE [facility] [id number] Univers 15:00:00 15:00:00 ELLIS cox [facility] 2022-06-08 2022-06-[address] [facility] [id number] Univers 00:00:00 00:00:00 Ellis HEALTH 350.1.13.10 it y of [place] 4.2.7.2.686 [place] as VIKRAM?BLEA [id number] [facility] [address] [place] MEDICAL OFFICE [facility] 2021-11-09 2021-11-09 Telephone JOSR Guo [id number] Univers 00:00:00 00:00:00 Erica CLANCY 350.1.13.10 it y of [facility] 4.2.7.2.686 [place] as [phone] [facility] [address] [place] 2021-11-08 2021-11-08 Laboratory Only, Ang Db Test [facility] 1.2.8 40.114 [id number] Univers 09:30:00 09:45:00 Only ByronTonja 350.1.13.10 ity of [place] 4.2.7.2.686 [place] as VIKRAM?BLEA [phone] [facility] [address] [facility] OFFICE [facility] 2021-11-08 2021-11-08 Outpatient R BYRON [facility] [id number] Univers 09:30:00 09:30:00 TONJA ity [facility] 2021-11-08 2021-11-08 Orders Doctor OVALLES 1.2.840.114 [id number] Univers 00:00:00 00:00:00 Only UnassignedJULIETH 350.1.13.10 ity of [facility] 4.2.7.2.686 [place] [phone] [facility] [address] [place] 2021-06-16 2021-06-16 Letter JOSR Nuno 1.2.840.114 [id number] Univers 00:00:00 00:00:00 (Out) Cheryl CLANCY 350.1.13.10 it y of [facility] 4.2.7.2.686 [place] as [phone] [facility] 019 Branch 2021-06-15 2021-06-15 Laboratory Only, Ang Db Test [facility] 1.2.8 40.114 [id number] Univers 09:21:19 09:31:19 Only Alannah Cardenas Rigel 350.1.13.10 ity of [place] 4.2.7.2.686 [place] as Vikram?Blea [phone] [address] Medical Office Building 2021-06-15 2021-06-[address] [facility] 1.2.840.114 [id number] Univers 00:00:00 00:00:00 (Out) Alannah [facility] 350.1.13.10 it y of [place] 4.2.7.2.686 [place] Vikram?Blea [id number] [address] Office [facility] 2021-05-11 2021-05-[address] [facility] [place] - [address] [place] 00:00:00 00:00:00 Discovery Maria Alejandra 0729 da [facility]: [address], [place] [address] , Ph. [phone] 2020-09-13 2020-09-13 Emergency [facility] [id number] Univers 13:19:00 15:18:00 Gómez Thurston 350.1.13.10 i ty of [place]7.2.[place] [phone] [facility] 084 Branch 2020-09-13 2020-09-13 Emergency X [facility] ERT [id number] Univers 13:19:00 15:18:00 GÓMEZ cox [facility] 2020-08-31 2020-08-31 Outpatient Evelyn [facility] [id number] [place] 02:20:00 02:20:00 1118 [facility] 2019-04-27 2019-04-[address] [facility] [place] - [id number] [place] 00:00:00 00:00:00 Discovery Antonette 0715 rian MD: [address] [place] [address] , Ph. [phone] 2019-04-15 2019-04-15 [place] - [address] [place] 00:00:00 00:00:00 Discovery Antonette 0703 da MD: [address] [place] [address] , Ph. [phone] 2019-04-13 2019-04-13 [place] - [address] [place] 00:00:00 00:00:00 Discovery Antonette 0701 rian MD: [address] [place] [address] , Ph. [phone] 2019-03-10 2019-03-10 [place] - [address] [place] 00:00:00 00:00:00 Discovery Antonette 0528 rian MD: [address] [place] [address] , Ph. [phone] 2018-11-27 2018-11-27 [place] - [address] [place] 00:00:00 00:00:00 Discovery Antonette 0214 da MD: [address] [place] [address] , Ph. [phone] Results Test Description Test Time Test Comments Results Result Comments Source BASIC METABOLIC PANEL (NA, K, CL, CO2, GLUCOSE, BUN, 2022-07 01:38:30 CREATININE, CA) Test Item Value Reference Range Interpretation Comme nts NA (test code = 1607664552) 141 mmol/L 135-145 K (test code = 4372100514) 3.7 mmol/L 3.5-5.0 CL (test code = 2766089581) 103 mmol/L 98-108 CO2 TOTAL (test code = 29 mmol/L - 2809684193) AGAP (test code = 3147124279) 2-16 BUN (test code = 7659189914) 11 mg/dL 7-23 GLUCOSE (test code = 5572198892) 98 mg/dL 70-110 CREATININE (test code = 0.63 mg/dL 0.50-1.04 9129872954) CALCIUM (test code = 0457757153) 9.2 mg/dL 8.6-10.6 eGFR (test code = 6751563840) mL/min/1.73m2 KHADIJAH (test code = KHADIJAH) Association [...] or urine or abnormalities in imaging tests). [facility] (ALB,T.PRO,BILI T,BU/BC,ALT,AST,ALK PHOS)2022-08-13 01:38:30 Test Item Value Reference Range Interpretation Comments TOTAL BILI (test code = 1955940923) 0.8 mg/dL 0.1-1.1 BILI UNCON (test code = 4218264427) 0.6 mg/dL 0.1-1.1 BILI CONJ (test code = 2716435839) 0.0 mg/dL 0.0-0.3 T PROTEIN (test code = 9609121146) 7.7 g/dL 6.3-8.2 ALBUMIN (test code = 9652551817) 4.6 g/dL 3.5-5.0 ALK PHOS (test code = 3303906850) 70 U/L 34-122 ALTv (test code = 1742-6) 19 U/L 5-35 AST(SGOT) (test code = 0410948984) 24 U/L 13-40 Lab Interpretation (test code = Normal 66405-2) [facility] 01:38:30 Test Item Value Reference Range Interpretation Comments LIPASE (test code = 2045683087) 30 U/L 0-220 Lab Interpretation (test code = Normal 74439-7) [facility] [id number] 01:27:14 Test Item Value Reference Range Interpretation Comments WBC (test code = See_Comment [Automated 7290-2) message] The sy stem which generated this result transmitted reference range : 4.30 - 11.10 10*3/?L. The reference range was not used to interpret this result as normal/abnormal . RBC (test code = See_Comment [Automated 143-8) message] The sy stem which generated this [...] (test code = 38.4 fL 39.0-49.9 L 47633-5) RDW-CV (test code = 11.4 % 12.0-15.5 L 788-0) PLT (test code = See_Comment [Automated 777-3) message] The sy stem which generated this result transmitted reference range : 166 - 358 10*3/ ?L. The reference r mirna was not used to interpret this result as normal/abnormal . MPV (test code = 9.4 fL 9.5-12.9 L 55960-4) NRBC/100 WBC (test See_Comment [Automat ed code = 7013584609) message] The system which generated this result transmitted reference range : 0.0 - 10.0 /100 WBCs. The refer ence range was not u sed to interpret th is result as normal/abnormal . NRBC x10^3 (test code See_Comment [Auto mated = 3056092893) message] The s ystem which generated this result transmitted reference range : 10*3/?L. The reference range was not used to interpret this result as normal/abnormal . GRAN MAT (NEUT) % 61.5 % (test code = 770-8) IMM GRAN % (test code 0.30 % = 0109416034) LYMPH % (test code = 29.1 % 736-9) MONO % (test code = 8.4 % 5905-5) EOS % (test code = 0.3 % 713-8) BASO % (test code = 0.4 % 706-2) GRAN MAT x10^3(ANC) 4.90 10*3/uL 1.88-7.09 (test code = 1612803160) IMM GRAN x10^3 (test 0.00-0.06 code = 5703201351) LYMPH x10^3 (test code 2.31 10*3/uL 1.32-3.29 = 731-0) MONO x10^3 (test code 0.67 10*3/uL 0.33-0.92 = 742-7) EOS x10^3 (test code = 0.03-0.39 L 711-2) BASO x10^3 (test code 0.03 10*3/uL 0.01-0.07 = 704-7) Lab Interpretation Abnormal (test code = 86026-7) [facility] [id number] 01:17:00 Test Item Value Reference Range Interpretation Comments POCT PREG (test code = 1605) Negative On board controls acceptable with Present C Line (test code = 3574) POCT PREG LOT # (test code = 3575) [id number] POCT PREG TEST DATE (test 12-12-2023 code = 3576) Lab Interpretation (test code = Normal 91603-8) [facility] macro (dipstick) panel - Urine 2021-05-11 11:11:00 Test Item Value Reference Range Interpretation Comments Leukocytes (test code = Leukocytes) Negative Nitrite (test code = Nitrite) negative Urobilinogen (test code = .2 Urobilinogen) Protein (test code = Protein) Negative pH (test code = pH) 6.5 Blood (test code = Blood) Negative Specific [place] (test code = 1.020 Specific [place]) Ketone (test code = Ketone) Negative Bilirubin (test code = Bilirubin) Negative Glucose (test code = Glucose) Negative Appearance (test code = Appearance) Clear Color (test code = Color) Yellow [facility] macro (dipstick) panel - [id number] 10:20:03 Test Item Value Reference Range Interpretation Comments Leukocytes (test code = Leukocytes) Negative Nitrite (test code = Nitrite) negative Urobilinogen (test code = .2 Urobilinogen) Protein (test code = Protein) Trace pH (test code = pH) 5.5 Blood (test code = Blood) Negative Specific [place] (test code = 1.030 Specific [place]) Ketone (test code = Ketone) Negative Bilirubin (test code = Bilirubin) Negative Glucose (test code = Glucose) Negative Appearance (test code = Appearance) Clear Color (test code = Color) Yellow [facility] Group[facility]inalysis macro (dipstick) panel - [id number] 10:35:45 Test Item Value Reference Range Interpretation Comments Leukocytes (test code = Leukocytes) Negative Nitrite (test code = Nitrite) negative Urobilinogen (test code = .2 Urobilinogen) Protein (test code = Protein) Trace pH (test code = pH) 7.0 Blood (test code = Blood) Large Specific [place] (test code = 1.030 Specific [place]) Ketone (test code = Ketone) Negative Bilirubin (test code = Bilirubin) Negative Glucose (test code = Glucose) Negative Appearance (test code = Appearance) Clear Color (test code = Color) [place] [facility] Group[facility]inalysis macro (dipstick) panel - [id number] 10:35:45 Test Item Value Reference Range Interpretation Comments Leukocytes (test code = Leukocytes) Negative Nitrite (test code = Nitrite) negative Urobilinogen (test code = .2 Urobilinogen) Protein (test code = Protein) Trace pH (test code = pH) 7.0 Blood (test code = Blood) Large Specific [place] (test code = 1.030 Specific [place]) Ketone (test code = Ketone) Negative Bilirubin (test code = Bilirubin) Negative Glucose (test code = Glucose) Negative Appearance (test code = Appearance) Clear Color (test code = Color) [place] [facility] Grouppregnancy test, [id number] 10:18:02 Test Item Value Reference Range Interpretation Comments Test (test code = negative Test) [facility] test, [id number] 10:18:02 Test Item Value Reference Range Interpretation Comments Test (test code = negative Test) [facility] GroupCB W Auto Differential panel - [id number] 10:07:00 Test Item Value Reference Range Interpretation Comments white blood count (test code = 6.4 K/uL 4.0-11.5 white blood count) red blood count (test code = red 4.42 M/uL 3.80-5.20 blood count) hemoglobin (test code = 13.8 g/dL 10.5-15.7 hemoglobin) hematocrit (test code = 43.3 % 34.0-50.0 hematocrit) Erythrocyte mean corpuscular 98.0 fL 86-100 volume [Entitic volume] (test code = 41408-9) Erythrocyte mean corpuscular 31.2 pg 26.2-33.4 hemoglobin [Entitic mass] (test code = 99524-4) mean corpuscular HGB conc (test 31.9 g/dL 30-34 code = mean corpuscular HGB conc) red cell distribution width (test 11.9 % 12.0-15.5 L code = red cell distribution width) platelet count (test code = 276 K/uL 165-450 platelet count) mean platelet volume (test code = 9.1 fL 9.4-12.6 L mean platelet volume) Neutrophils.segmented/100 63.4 % 44.4-80.1 leukocytes in Blood (test code = 49663-5) Ig% (test code = Ig%) 0.2 % 0.0-0.4 lymphocyte% (test code = 25.9 % 10.0-50.0 lymphocyte%) Monocytes/100 leukocytes in Blood 9.0 % 3.6-12.0 by Automated count (test code = 5905-5) Eosinophils/100 leukocytes in 1.2 % 0.0-5.4 Blood by Automated count (test code = 713-8) Basophils/100 leukocytes in 0.3 % 0.1-1.2 Unspecified specimen (test code = 87987-1) absolute neutrophil count (test 4.06 K/uL 1.56-6.13 code = absolute neutrophil count) Ig# (test code = Ig#) 0.0 K/uL 0.0-0.03 Lymphocytes [#/volume] in 1.7 K/uL 1.18-3.74 Unspecified specimen by Automated count (test code = 15833-6) mono # (test code = mono #) 0.58 K/uL 0.24-0.86 eos # (test code = eos #) 0.08 K/uL 0.04-0.36 basophil # (test code = basophil 0.02 K/uL 0.01-0.08 #) NRBC% (test code = NRBC%) 0 /100 WBC 0-0.2 NRBC# (test code = NRBC#) 0 K/uL [facility] [employer] [facility] test, [id number] 15:26:00 Test Item Value Reference Range Interpretation Comments Test (test code = negative Test) [facility] GroupUrinalysis macro (dipstick) panel - [id number] 15:26:00 Test Item Value Reference Range Interpretation Comments Leukocytes (test code = Leukocytes) Trace Nitrite (test code = Nitrite) negative Urobilinogen (test code = .2 Urobilinogen) Protein (test code = Protein) Negative pH (test code = pH) 6.5 Blood (test code = Blood) Negative Specific [place] (test code = 1.030 Specific [place]) Ketone (test code = Ketone) Negative Bilirubin (test code = Bilirubin) Negative Glucose (test code = Glucose) Negative Appearance (test code = Appearance) Clear Color (test code = Color) Yellow [facility] GroupChoriogonadotropin.beta subunit [Units/volume] in Serum or [id number] 01:50:00 Test Item Value Reference Range Interpretation Comments HCG quantitative (test code = HCG 0.1 mIU/mL 0-5 quantitative) [employer]"
[2023-06-26 12:47] LABS: Specific Gravity < 1.005 (1.005-1.030)
[2023-06-26] MEDS ORDERED: LIDOCAINE 1% MPF 5 ML VIAL ONE (12:48)
[2023-06-26] MEDS ORDERED: CEFTRIAXONE 1000 MG/VIAL ONE (12:49)
[2023-06-26] MEDS ORDERED: AZITHROMYCIN 250 MG TAB ONE (12:49)
[2023-06-26 12:51] LABS: Specific Gravity < 1.005 (1.005-1.030); Urine Bacteria None Seen /HPF (<20); Urine Bilirubin NEGATIVE (Negative); Urine Blood Negative (Negative); Urine Clarity Turbid (Clear); Urine Color Colorless (Yellow); Urine Glucose NEGATIVE (Negative); Urine Protein NEGATIVE (Negative); Urine RBC <5 /HPF (None Seen); Urine Trichomonas Present /HPF (None Seen); Urine Urobilinogen Normal (Normal)
--- NOTE | 2023-06-26 12:57 | ER ---
Nurse's Notes [facility] Name: Josee Anthony Age: 33 yrs Sex: Female : 1990 Arrival Date: 06/26/2023 Time: 11:34 Bed Treatment Private MD: Diagnosis: Trichomoniasis, unspecified Presentation: 06/26 11:40 Chief complaint: Patient states: he is having low abdominal pain, burning when ap3 urination, foul odor from her vagina and unusual discharge as well. patient reports these symptoms have started approx 1.5 months ago, but have gotten worse. Coronavirus screen: At this time, the client does not indicate any symptoms associated with coronavirus-19. Ebola Screen: No symptoms or risks identified at this time. Initial Sepsis Screen: Does the patient meet any 2 criteria? No. Patient's initial sepsis screen is negative. Does the patient have a suspected source of infection? No. Patient's initial sepsis screen is negative. Risk Assessment: Do you want to hurt yourself or someone else? Patient reports no desire to harm self or others. Onset of symptoms was May 14, 2023. 11:40 Method Of Arrival: Ambulatory ap3 11:43 Acuity: ROBERT 4 ap3 Triage Assessment: 11:42 General: Appears in no apparent distress. Behavior is calm, cooperative, appropriate ap3 for age. Pain: Complains of pain in abdomen. Neuro: Level of Consciousness is awake, alert, obeys commands, Oriented to person, place, time, situation, Appropriate for age. Cardiovascular: Patient's skin is warm and dry. Respiratory: Airway is patent Respiratory effort is even, unlabored, Respiratory pattern is regular, symmetrical. GI: Reports lower abdominal pain, upper abdominal pain. : Reports discharge, from vagina that is urgency, urinary frequency. Historical: - Allergies: 11:41 No Known Allergies; ap3 - PMHx: 11:41 None; ap3 - PSHx: 11:41 section; tubes tied; ap3 - Social history:: Smoking status: Reported history of juuling and/or vaping. Screenin:43 [facility] ED Fall Risk Assessment (Adult) History of falling in the last 3 months, ap3 including since admission No falls in past 3 months (0 pts). Abuse screen: Denies threats or abuse. Nutritional screening: No deficits noted. Tuberculosis screening: No symptoms or risk factors identified. Assessment: 12:33 General: Appears in no apparent distress. comfortable, Behavior is calm, cooperative, kc6 appropriate for age. Pain: Complains of pain in back and abdomen. Neuro: Level of Consciousness is awake, alert, obeys commands, Oriented to person, place, time, situation, Appropriate for age. Cardiovascular: Capillary refill < 3 seconds. Respiratory: Airway is patent Trachea midline Respiratory effort is even, unlabored, Respiratory pattern is regular, symmetrical. GI: Abdomen is flat, non-distended, Bowel sounds present X 4 quads. Abd is soft and non tender X 4 quads. Patient currently denies diarrhea, nausea, vomiting. : No signs and/or symptoms were reported regarding the genitourinary system. Urine is clear, Denies vaginal bleeding. EENT: No signs and/or symptoms were reported regarding the EENT system. Derm: No signs and/or symptoms reported regarding the dermatologic system. Skin is intact, is healthy with good turgor, Skin is pink, warm \T\ dry. Musculoskeletal: No signs and/or symptoms reported regarding the musculoskeletal system. Circulation, motion, and sensation intact. Capillary refill < 3 seconds, Range of motion: intact in all extremities. Vital Signs: 11:43 Pulse 100; Resp 18; Temp 98.1; Pulse Ox 100% ; Weight 68.04 kg; ap3 11:45 BP 122 / 85; ap3 ED Course: 11:39 Patient arrived in ED. im 11:39 Jessica Lilly FNP-C [facility]. kb 11:39 Lj Dixon DO is Attending Physician. kb 11:43 Triage completed. ap3 11:43 Arm band placed on right wrist. ap3 11:45 Selam Chawla, CAMILA is Primary Nurse. kc6 12:28 Patient has correct armband on for positive identification. Placed in gown. Bed in low kc6 position. Call light in reach. Side rails up X 1. Client placed on continuous cardiac and pulse oximetry monitoring. NIBP monitoring applied. 12:28 Assist provider with pelvic exam: Set up pelvic tray. Performed by Jessica [email or web address] YESIKA Specimens sent to lab. Patient tolerated well. 12:31 GC (Dewayne/Chl) Probe CX/URE (Do not order if pt is under 13, order Culture instead) Sent. kc6 12:31 Wet Prep Sent. kc6 12:31 Test, Urine Sent. kc6 12:31 Urinalysis w/ reflexes Sent. kc6 13:06 Patient did not have IV access during this emergency room visit. kc6 Administered Medications: 12:46 Drug: Rocephin (cefTRIAXone) IM 1 grams Route: IM; Site: left deltoid; kc6 13:03 Follow up: Response: No adverse reaction kc6 12:46 Drug: AZITHromycin PO 1 grams Route: PO; kc6 13:03 Follow up: Response: No adverse reaction kc6 Medication: 13:06 VIS not applicable for this client. kc6 Outcome: 12:56 Discharge ordered by . kb 13:06 Discharged to home ambulatory. kc6 13:06 Condition: stable 13:06 Discharge instructions given to patient, Instructed on discharge instructions, follow up and referral plans. medication usage, safe sex practices, Demonstrated understanding of instructions, follow-up care, medications, Prescriptions given X 1. 13:06 Patient left the ED. kc6 Signatures: Jessica Lilly, CORE DROPPER-C CORE DROPPER-Janice Carbone, RN RN ap3 Selam Chawla RN RN kc6 Fawn Vergara im
--- NOTE | 2023-06-26 12:57 | EDPHYS ---
Physician Documentation [facility] Name: Josee Anthony Age: 33 yrs Sex: Female : 1990 Arrival Date: 06/26/2023 Time: 11:34 Bed Treatment Private MD: ED Physician Lj Dixon HPI: 06/26 14:01 This 33 yrs old Female presents to ER via Ambulatory with complaints of STD Exposure, kb Low Back Pain, Abdominal Pain. 14:01 The patient presents with urinary symptoms, dysuria, frequency, vaginal discharge, that kb is a moderate amount of malodorous white discharge. Onset: The symptoms/episode began/occurred 1.5 month(s) ago. Modifying factors: The symptoms are alleviated by nothing, the symptoms are aggravated by urinating. Associated signs and symptoms: Pertinent positives: dysuria, urinary frequency, vaginal discharge. Severity of symptoms: At their worst the symptoms were moderate, in the emergency department the symptoms are unchanged. The patient has not experienced similar symptoms in the past. The patient has not recently seen a physician. 14:02 Pt reports vaginal discharge, lower abd pain, dysuria and frequency for 1.5 months. kb states she believes her sexual partner has been involved with someone else. . Historical: - Allergies: 11:41 No Known Allergies; ap3 - PMHx: 11:41 None; ap3 - PSHx: 11:41 section; tubes tied; ap3 - Social history:: Smoking status: Reported history of juuling and/or vaping. ROS: 13:57 Constitutional: Negative for fever, chills, and weight loss. kb 13:57 : Positive for urinary symptoms, urinary frequency, burning with urination, vaginal discharge. 13:57 All other systems are negative. 13:59 Abdomen/GI: Positive for abdominal pain, Negative for nausea, vomiting, and diarrhea. kb Exam: 13:59 Constitutional: This is a well developed, well nourished patient who is awake, alert, kb and in no acute distress. Head/Face: Normocephalic, atraumatic. ENT: Moist Mucous membranes Cardiovascular: Regular rate Respiratory: Respirations even and unlabored. No increased work of breathing. Talking in full sentences Abdomen/GI: Soft, non-tender. No distention Skin: Warm, dry with normal turgor. Normal color. MS/ Extremity: Pulses equal, no cyanosis. Neurovascular intact. Full, normal range of motion. Neuro: Awake and alert, GCS 15, oriented to person, place, time, and situation. Moves all extremities. Normal gait. 13:59 : Pelvic Exam: External exam: is normal, Speculum exam: no cervicitis, bimanual exam reveals normal findings, discharge, malodorous, white, the nurse was present for the exam. Vital Signs: 11:43 Pulse 100; Resp 18; Temp 98.1; Pulse Ox 100% ; Weight 68.04 kg; ap3 11:45 BP 122 / 85; ap3 MDM: 11:39 Patient medically screened. kb 14:00 Differential diagnosis: UTI, STI, BV. Data reviewed: vital signs, nurses notes. kb Counseling: I had a detailed discussion with the patient and/or guardian regarding the historical points, exam findings, and any diagnostic results supporting the discharge/admit diagnosis, lab results, the need for outpatient follow up, a family practitioner, to return to the emergency department if symptoms worsen or persist or if there are any questions or concerns that arise at home. 06/26 11:44 Order name: Test, Urine; Complete Time: 12:59 kb 06/26 11:44 Order name: Urinalysis w/ reflexes; Complete Time: 12:59 kb 06/26 11:46 Order name: Wet Prep; Complete Time: 12:46 kb 06/26 11:46 Order name: GC (Dewayne/Chl) Probe CX/URE (Do not order if pt is under 13, order Culture kb instead) 06/26 11:47 Order name: Pelvic Exam Setup; Complete Time: 11:55 kb Administered Medications: 12:46 Drug: Rocephin (cefTRIAXone) IM 1 grams Route: IM; Site: left deltoid; kc6 13:03 Follow up: Response: No adverse reaction kc6 12:46 Drug: AZITHromycin PO 1 grams Route: PO; kc6 13:03 Follow up: Response: No adverse reaction kc6 Disposition: 14:35 Co-signature as Attending Physician, Lj Dixon DO I was immediately available on-site ms3 in the Emergency Department for consultation in the care of the patient. Disposition Summary: 06/26/23 12:56 Discharge Ordered Location: Home kb Condition: Stable kb Diagnosis - Trichomoniasis, unspecified kb Followup: kb - With: Emergency Department - When: As needed - Reason: Worsening of condition Followup: kb - With: Private Physician - When: 2 - 3 days - Reason: Recheck today's complaints, Continuance of care, Re-evaluation by your physician Discharge Instructions: - Discharge Summary Sheet kb - Trichomoniasis kb Forms: - Medication Reconciliation Form kb - Thank You Letter kb - Antibiotic Education kb - Prescription Opioid Use kb - Patient Portal Instructions kb - Leadership Thank You Letter kb Prescriptions: - Flagyl 500 mg Oral Tablet - take 1 tablet by ORAL route every 12 hours for 7 days; 14 tablet; Refills: 0, kb Product Selection Permitted Signatures: Dispatcher [employer] EDMS Jessica Lilly, DEVINC MD ALLERGY IMMUNOLOGY-Janice Carbone, RN RN ap3 Lj Dixon DO DO ms3 Selam Chawla RN RN kc6
[2023-06-26 13:10] VITALS: TEMP 98.1; O2SAT 100
[2023-06-26 13:12] VITALS: BP 122/85
[2023-06-29 00:39] LABS: C.trachomatis RNA,TMA Not Detected (Not Detected)
== END 2023-06-26 13:06 | disposition home or self-care (01) ==
LOC: ER 11:34
DX: A59.9 Trichomoniasis, unspecified (principal)
CPT/HCPCS: 81001; 81025; 87210; 87590; 87490; J2001; J0696; 96372; 99284